=== PATIENT | female | born 1940 | race Caucasian/White ===

== ENCOUNTER 2016-07-27 12:41 | Inpatient (IN) | payer OTHER ==
[~2016-07-27] VITALS: Ht 165.1 cm; Wt 138.8 kg
[2016-07-27] VITALS (17 sets, daily range): BP systolic 97–171; BP diastolic 49–87; PULSE 62–115; RESP 14–18; TEMP 97.2–98.2; O2SAT 97–100
[~2016-07-27 12:41] MED LIST: ROCURONIUM BROMIDE 10 MG/ML (ZEMURON) IV ONE
--- NOTE | 2016-07-27 12:45 | NUR ---
PT. PLACED IN ROOM 4, IN GOWN SIDERAILS UP, BED DOWN, REPORT RECEIVED FROM ART RN
--- NOTE | 2016-07-27 12:50 | NUR ---
DR. FRITZ AT BEDSIDE EXAMINING THE PT
--- NOTE | 2016-07-27 12:50 | NUR ---
PT. TO ER AAOx4 VIA EMS C/O INCREASED WEAKNESS TO HER LOWER EXTREMITIES AND SOB SINCE THIS MORNING, PER DAUGHTER THE CYCLE OF GETTING SOB HAS WORSEN OVER PAST WEEK, STATES THAT SHE SAW HER PRIMARY LAST WEEK, SYMPTOMS WORSEN THIS MORNING
--- NOTE | 2016-07-27 13:10 | NUR ---
medication reconciliation completed
[2016-07-27 14:06] LABS: ABG TOTAL HEMOGLOBIN 11.3 G/dL (12.0-18.0); BLOOD GAS BASE EXCESS 17.3 mmol/L (-3.0-3.0); BLOOD GAS COHb% 1.3 % (0.5-1.5); BLOOD GAS PH 7.171 (7.350-7.450); BLOOD O2Hb% 94.9 % (94.0-97.0)
[2016-07-27 14:07] LABS: BLOOD GAS HHB 3.4 % (0.0-6.0)
[2016-07-27] MEDS ORDERED: ETOMIDATE 20 MG/ 10 ML VIAL (AMIDATE) IVP ONE (14:15)
[2016-07-27] MEDS ORDERED: ROCURONIUM BROMIDE 10 MG/ML (ZEMURON) IV ONE (14:15)
[2016-07-27 14:20] LABS: BASOPHILS # (AUTO) 0.3 K/uL (0.0-0.2); BASOPHILS % (AUTO) 2.5 % (0.0-2.0); EOSINOPHILS # (AUTO) 0.2 K/uL (0.0-0.4); EOSINOPHILS % (AUTO) 1.3 % (0.0-4.0); LYMPHOCYTES # (AUTO) 1.4 K/uL (1.0-5.5); MEAN CORPUSCULAR HEMOGLOBIN 26 pg (27-31); MEAN CORPUSCULAR HGB CONC 30 % (32-36); MEAN CORPUSCULAR VOLUME 88 fL (79.0-98.0); MONOCYTES # (AUTO) 0.7 K/uL (0.0-1.0); MONOCYTES % (AUTO) 5.3 % (1.7-9.3); NEUTROPHILS # (AUTO) 10.9 K/uL (1.8-7.7); NEUTROPHILS % (AUTO) 80.9 % (40.0-70.0); PLATELET COUNT (AUTO) 190 K/uL (130-430); RED BLOOD CELL COUNT(AUTO) 3.77 MIL/uL (4.2-6.2); RED CELL DISTRIBUTION WIDTH 17.5 % (9.0-15.0); WHITE BLOOD COUNT (AUTO) 13.5 K/uL (4.8-10.8)
[2016-07-27] MEDS ORDERED: FURO40TA5 PO (14:24)
[2016-07-27] MEDS ORDERED: PRO20 PO (14:24)
[2016-07-27] MEDS ORDERED: ATOR40TA68 PO (14:24)
[2016-07-27] MEDS ORDERED: DIPH30CR5 TP (14:24)
[2016-07-27] MEDS ORDERED: TRAM50TA92 PO (14:24)
[2016-07-27 14:31] LABS: CALCIUM 9.3 mg/dL (8.4-11.0); CHLORIDE 96 mmol/L (98-107); CREATININE 0.77 mg/dL (0.55-1.30); GLUCOSE 178 mg/dL (70-99); POTASSIUM 4.5 mmol/L (3.5-5.1); SODIUM SERUM 140 mmol/L (136-145); UREA NITROGEN, BLOOD 20 mg/dL (8-21)
--- NOTE | 2016-07-27 14:33 | NUR ---
pt. SpO2 @ 85 %, Dr. Ayers at bedside to intubate pt.
--- NOTE | 2016-07-27 14:34 | NUR ---
Patient not known to be of DNR status. Patient medicated with 20 mg of Etomidate and 30 mg of rocuronium for sedation prior to placement of ET tube. Respiratory therapy at bedside prior to placement. Size 17.5 ET tube placed by dr. Ayers. Cuff inflated with 10 cc air. Auscultation of breath sounds over bilateral chest wall. ET tube secured by RT. O2 sats 98% pulse ox. PCXR ordered to check tube placement.
[2016-07-27 14:36] LABS: ALANINE AMINOTRANSFERASE 16 U/L (12-78); ASPARTATE AMINOTRANSFERASE 10 U/L (10-37); TOTAL BILIRUBIN 0.3 mg/dL (0.0-1.0); TOTAL PROTEIN, SERUM 7.8 g/dL (6.4-8.3)
[2016-07-27 14:56] LABS: ANION GAP < 3 (5-15)
[2016-07-27] MEDS ORDERED: PROPOFOL DRIP 100 ML IV ONE (15:00)
--- NOTE | 2016-07-27 15:00 | NUR ---
# 16 FR Ricardo catheter with use of sterile technique. Immediate return of 100 cc yellow urine noted. Bedside drainage bag placed below level of bladder. Urine sample collected and sent to lab. Pt tolerated procedure well.
--- NOTE | 2016-07-27 15:05 | NUR ---
NG tube placed to left nare. Placement checked by auscultation of instilled air into stomach and aspiration of gastric contents. Tubing taped in place to prevent dislodging. Patient tolerated well
--- NOTE | 2016-07-27 15:20 | NUR ---
Patient will be admitted to care of Dr. Mena. Admitted to ICU unit. Will go to room 7. Belongings list completed. Summary report printed. Report given to ashley LUO.
--- NOTE | 2016-07-27 15:30 | NUR ---
ADMISSION NOTES. PT RECEIVED IN ROOM 7, ORALLY INTUBATED, JUDY SCALE 4, ON DIPRIVAN DRIP AT 4 MCG/KG/MIN INTO RT FOREARM, OBESE, TRANSFERRED FROM [facility] TO BED BY 5 NURSING STAFF, ORAL CARE DONE, MODERATE BLOODY SECRETIONS OBTAINED, HOOKED PT TO CARDIAC MONITORING, BLOOD PRESSURE CUFF, PULSE OXIMETRY, ANOTHER IV ACCESS INSERTED INTO RT CHEST/AXILLA, #20 GAUGE CATHETER, SKIN DENUDED UNDER HER BREASTS, INNER THIGHS, PERINEAL AREA, WASHED SKIN WITH WET WIPES, CHG CLOTHS. Z-GUARD APPLIED TO REDDENED SKIN. ABDOMINAL DRAIN TO RIGHT UPPER QUADRANT WITH BROWNISH-YELLOWISH LIQUID DRAINAGE. BRAGA CATHETER INTACT WITH YELLOW URINE IN THE DRAINAGE BAG.
--- NOTE | 2016-07-27 15:45 | NUR ---
IV DRIPS. DIPRIVAN INCREASED TO 45 MCG/KG/MIN, PT GETTING AGITATED.
[2016-07-27 16:15] LABS: BLOOD GAS PH 7.474 (7.350-7.450)
[2016-07-27 16:16] LABS: ABG TOTAL HEMOGLOBIN 10.6 G/dL (12.0-18.0); BLOOD GAS BASE EXCESS 16.3 mmol/L (-3.0-3.0); BLOOD GAS COHb% 1.1 % (0.5-1.5); BLOOD GAS HHB 4.4 % (0.0-6.0); BLOOD O2Hb% 94.3 % (94.0-97.0)
[2016-07-27] MEDS ORDERED: cefTRIAXone 1 GM IVPB PREMIX 50 ML IV ONE (16:30)
[2016-07-27] MEDS ORDERED: traMADol HCL HCL 50 MG TABLET (ULTRAM) PO PRN (17:00)
[2016-07-27] MEDS ORDERED: DEXTROSE 50% JECT 50 ML DISP.SYRIN IVP PRN (17:00)
--- NOTE | 2016-07-27 17:10 | NUR ---
VENT. R.T. TITRATED FIO2 TO 50%, TIDAL VOLUME TO 650.
[2016-07-27] MEDS ORDERED: LACTULOSE 20 GM/30 ML UDC GT ONE (17:15)
[2016-07-27] MEDS ORDERED: MORPHINE 4 MG/ML INJ. SYRINGE IVP PRN (17:15)
[2016-07-27 17:51] LABS: PROTHROMBIN TIME 10.8 SECS (9.5-12.5)
--- NOTE | 2016-07-27 18:00 | NUR ---
. DR GERMAIN CAME IN AND EXAMINED PT WHILE HER DAUGHTER SHANDA STANDING NEXT TO HER BED . QUESTIONS WERE ANSWERED BY .
[2016-07-27] MEDS: LR 1,000 ML IV SCH (18:08)
[2016-07-27] MEDS: PIPERACILLIN/TAZO 4.5GM/DEX-IS 100 ML IV SCH ×2 (18:14→22:22)
[2016-07-27] MEDS: INSULIN REGULAR, HUMAN 100 UNITS/ML, 10 ML VIAL (novoLIN R) SUBCUT PRN (18:25)
--- NOTE | 2016-07-27 18:40 | NUR ---
IV DRIPS. PT REMAINS ON DIPRIVAN DRIP AT 45 MCG/KG/MIN, RAISES HER EYEBROWS WHEN TALKED TO.
[2016-07-27] MEDS: PROPOFOL DRIP 100 ML IV PRN ×3 (18:45→23:42)
[2016-07-27] MEDS ORDERED: IPRATROPIUM/ALBUTEROL SULFATE 3 ML AMPUL.NEB INH SCH (19:00)
--- NOTE | 2016-07-27 19:20 | NUR ---
PM ASSESSMENT: Patient intubated, ETT 7.5, 24cm lipline with vent settings AC 14, TV 650, FiO2 50%, Peep 5. Breathing even and unlabored. SR on the monitor. Afebrile. IV access on the right upper chest near axilla G20 and right forearm G20 patent and intact. No redness or swelling on both IV sites. Patient is on LR running at 80mls/hr as IVF and Diprivan at 45mcg/kg/min. Martinez scale 4. Patient had NGT on right nare clamped. Ricardo cath draining yellow urine. Abdominal drain noted mid abdomen with yellowish drain. No redness noted on that area. Redness/denuded on patient's folds under breasts and inner thigh folds and perineal area noted. HOB elevated at 30 degrees with 2 side rails up and bed in lowest level. Bed brakes locked. Call light within reach. Will continue to monitor.
[2016-07-27] MEDS: IPRATROPIUM/ALBUTEROL SULFATE 3 ML AMPUL.NEB INH SCH (19:37)
--- NOTE | 2016-07-27 19:45 | NUR ---
RT NOTES @194 ETT ADVANCED 1CM PER [address]. NIEVES. ETT RETAPED AND SECURED AT 24 LIP LINE. NO OTHER CHANGES. RN AWARE.
--- NOTE | 2016-07-27 19:50 | NUR ---
TUBE REPLACEMENT: # 16 FR gastric tube placed orally. Placement checked by auscultation of instilled air into stomach and aspiration of gastric contents. Tubing taped in place to prevent dislodging. Patient tolerated procedure well.
[2016-07-27] MEDS: PANTOPRAZOLE SODIUM 40 MG/VIAL (PROTONIX) IVP SCH (20:54)
[2016-07-27] MEDS ORDERED: AZITHROMYCIN 500 MG in NS 250 ML IV SCH (21:00)
[2016-07-27] MEDS: ENOXAPARIN SODIUM 40 MG/0.4 ML SYRINGE SUBCUT SCH (21:01)
[2016-07-28] VITALS (32 sets, daily range): BP systolic 107–184; BP diastolic 39–96; PULSE 67–131; RESP 6–29; TEMP 98.4–99.7; O2SAT 90–99; Ht 165.1 cm; Wt 138.8 kg
[2016-07-28] MEDS: IPRATROPIUM/ALBUTEROL SULFATE 3 ML AMPUL.NEB INH SCH ×4 (01:52→20:08)
--- NOTE | 2016-07-28 02:57 | NUR ---
PT UPDATE: Patient resting quietly. No acute distress noted. Vent settings tolerated well. Suctioned moderate amount of blood-tinged sputum. Will continue to monitor.
[2016-07-28] MEDS: PROPOFOL DRIP 100 ML IV PRN ×4 (03:16→14:21)
--- NOTE | 2016-07-28 04:10 | NUR ---
PT UPDATE: Patient tolerating vent settings well. Vital signs stable. No acute distress or SOB noted. Will continue to monitor.
[2016-07-28] MEDS: PIPERACILLIN/TAZO 4.5GM/DEX-IS 100 ML IV SCH ×3 (05:38→23:08)
[2016-07-28 06:46] LABS: BASOPHILS % (AUTO) 0.3 % (0.0-2.0); EOSINOPHILS # (AUTO) 0.1 K/uL (0.0-0.4); EOSINOPHILS % (AUTO) 0.8 % (0.0-4.0); HEMATOCRIT 28.5 % (36-48); HEMOGLOBIN 8.7 g/dL (12.0-16.0); LYMPHOCYTES # (AUTO) 1.6 K/uL (1.0-5.5); LYMPHOCYTES % (AUTO) 14.4 % (20.5-51.5); MEAN CORPUSCULAR HEMOGLOBIN 26 pg (27-31); MEAN CORPUSCULAR HGB CONC 31 % (32-36); MEAN CORPUSCULAR VOLUME 86 fL (79.0-98.0); MONOCYTES # (AUTO) 0.6 K/uL (0.0-1.0); MONOCYTES % (AUTO) 5.3 % (1.7-9.3); NEUTROPHILS % (AUTO) 79.2 % (40.0-70.0); PLATELET COUNT (AUTO) 186 K/uL (130-430); RED CELL DISTRIBUTION WIDTH 17.6 % (9.0-15.0); WHITE BLOOD COUNT (AUTO) 11.3 K/uL (4.8-10.8)
[2016-07-28 06:51] LABS: ALANINE AMINOTRANSFERASE 13 U/L (12-78); ALBUMIN 2.3 g/dL (3.4-4.8); ANION GAP 2 (5-15); ASPARTATE AMINOTRANSFERASE 10 U/L (10-37); CALCIUM 8.9 mg/dL (8.4-11.0); CHLORIDE 98 mmol/L (98-107); CREATININE 1.02 mg/dL (0.55-1.30); GLUCOSE 123 mg/dL (70-99); POTASSIUM 3.6 mmol/L (3.5-5.1); SODIUM SERUM 140 mmol/L (136-145); TOTAL BILIRUBIN 0.4 mg/dL (0.0-1.0); UREA NITROGEN, BLOOD 21 mg/dL (8-21)
--- NOTE | 2016-07-28 07:15 | NUR ---
[place] of care Received pt lying in bed with trach to vent, with vent setting: AC16, TV 500, fio2 50% Peep 5. No SOB. Obtunded. No sign of pain nor discomfort. Afebrile. Will continue to monitor. Addendum: 07/28/16 at 1334 by Keara Baltazar RN Undo this entry. Charted on wrong patient.
--- NOTE | 2016-07-28 07:30 | NUR ---
REPORT: Report given to PUJA Sarah.
--- NOTE | 2016-07-28 07:35 | NUR ---
INITIAL NOTES RECEIVED PATIENT ON BED WITH EYES CLOSE.BREATHING EVEN AND UNLABORED;INTUBATED ATTACHED TO VENTILATOR MACHINE;TOLERATING SETTINGS WELL.WITH DIPRIVAN DRIP AT 45 MCG/KG/MIN;RESPONDS TO PAINFUL STIMULI ONLY;LOWERED DIPRIVAN DRIP TO 40 MCG/KG/MIN.WITH GT INTACT AND PATENT;NO FEEDING STARTED.SAFETY AND FALL PRECAUTIONS IN PLACE.WILL CONTINUE TO MONITOR
[2016-07-28 07:42] LABS: IRON (SERUM) 23 mcg/dL (37-145); TOTAL IRON BIND. CAPACITY 238 ug/dL (250-450)
[2016-07-28] MEDS: PANTOPRAZOLE SODIUM 40 MG/VIAL (PROTONIX) IVP SCH ×2 (08:56→22:27)
[2016-07-28] MEDS: ATORVASTATIN 20 MG TABLET PO SCH (08:56)
[2016-07-28] MEDS: FLUoxetine HCL 20 MG CAPSULE (PROzac) PO SCH (08:56)
--- NOTE | 2016-07-28 09:24 | NUR ---
Nutrition Update Randall Scale 12 noted. Pt admitted for acute respiratory failure. Diet: Diabetisource AC at 30 ml/hr via GT BMI: 51.1 kg/m2 RD to follow per nutrition care standards.
[2016-07-28] MEDS ORDERED: FUROSEMIDE 20 MG/2 ML VIAL IVP ONE ×2 (09:45→18:15)
--- NOTE | 2016-07-28 11:03 | NUR ---
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 Placed pt on isolation and ordered Bactroban as per protocol.
[2016-07-28] MEDS: LR 1,000 ML IV SCH ×2 (11:19→17:07)
--- NOTE | 2016-07-28 11:40 | NUR ---
RN NOTES RESP THERAPIST AT BEDSIDE FOR VENT CHANGES. DIPRIVAN DRIP TITRATED DOWN, PATIENT WILL BE ON SIMV 8 WHEN MORE AWAKE.
[2016-07-28] MEDS: MUPIROCIN 2% TOPICAL OINTMENT 22 GM TP SCH ×2 (12:38→23:07)
--- NOTE | 2016-07-28 13:35 | NUR ---
PUJA NOTES PATIENT MORE AWAKE AT THIS TIME, DIPRIVAN AT 10 MCG. PATIENT PLACED ON SIMV 8, WILL CONTINUE TO MONITOR. Addendum: 07/28/16 at 1539 by Keara Baltazar RN Charge Nurse Radha RN titrated Diprivan from 11:30 until 15:36.
--- NOTE | 2016-07-28 14:00 | NUR ---
RN NOTES PATIENT IS MORE AWAKE, ON SIMV 8 WITH GOOD SPO2. SOFT WRIST RESTRAINTS APPLIED FOR SAFETY.
--- NOTE | 2016-07-28 15:26 | NUR ---
Vent on SIMV Still on SIMV 8, PS 10, peep 5, fio2 50%. Tolerating well with anxiety. Calm environment provided. Education given. Diprivan was increased by 5. Daughter at bedside. Educated re: plan of care and isolation. Will continue to monitor.
--- NOTE | 2016-07-28 17:00 | NUR ---
NOTES IV SALINE LOCK TO LEFT ANTECUBITAL REMOVED;NO SIGNS AND SYMPTOMS OF INFILTRATION;PRESSURE DRESSING APPLIED
--- NOTE | 2016-07-28 17:45 | NUR ---
Dr. Trina Mena is here and made aware that night warehouse manager nurse said that pt had 3x episode of afib on their shift. Boris, pvc monitor confirmed he saw some irregularities at about [address] Mena the strip and said it was junctional and no new order for that. Asked MD for flush order for the OGT feeding. Updated MD re: pt's condition. New orders ordered by .
[2016-07-28] MEDS: INSULIN REGULAR, HUMAN 100 UNITS/ML, 10 ML VIAL (novoLIN R) SUBCUT PRN ×2 (17:52→23:10)
--- NOTE | 2016-07-28 18:00 | NUR ---
NOTES DR. GERMAIN CAME AND EXAMINED THE PATIENT;WITH ORDERS AND CARRIED OUT
[2016-07-28 18:10] LABS: BLOOD GAS BASE EXCESS 16.7 mmol/L (-3.0-3.0); BLOOD GAS PH 7.591 (7.350-7.450)
[2016-07-28 18:11] LABS: ABG TOTAL HEMOGLOBIN 9.8 G/dL (12.0-18.0); BLOOD GAS COHb% 0.7 % (0.5-1.5); BLOOD GAS HHB 3.5 % (0.0-6.0); BLOOD O2Hb% 95.4 % (94.0-97.0)
[2016-07-28] MEDS ORDERED: EPOETIN ALFA 3,000 UNITS/ML VIAL IVP ONE (18:15)
--- NOTE | 2016-07-28 18:29 | NUR ---
Called Dr. Garcia for consult at 1825. Dr. Lara is oncall. Nurse is aware.
--- NOTE | 2016-07-28 18:47 | NUR ---
Dr. Maria Dolores ANTHONY called back returning our phone call for a consult and made aware that Dr. 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
--- NOTE | 2016-07-28 19:00 | NUR ---
CLOSING NOTES PATIENT ON BED ASLEEP.BREATHING EVEN AND UNLABORED.NO ACUTE DISTRESS.IVF INFUSING WELL;TOLERATING WELL.RIGHT UPPER ARM PICC LINE INTACT AND PATENT;NO SIGNS AND SYMPTOMS OF INFILTRATION.SAFETY AND FALL PRECAUTIONS IN PLACE.KEPT ON CONTACT ISOLATION PRECAUTION.WILL ENDORSE TO NEXT SHIFT ACCORDINGLY Addendum: 07/28/16 at 1912 by Amy Bran RN BRAGA CATHETER INTACT AND PATENT DRAINING MIKE COLORED URINE.
--- NOTE | 2016-07-28 19:40 | NUR ---
PM SHIFT ASSESSMENT, RECEIVED REPORT FROM AM SHIFT, WENT IN TO ROOM TO MAKE BEDSIDE ROUNDS.PT ON THE VENT SIMV 8 ,VT 650,FIO2 50% ,PEEP 5, PS 10. ON DIPRIVAN DRIP 15MCG/KG/MIN. PT AWAKE. FOLLOWING COMMANDS,AFTER BEDSIDE ROUND CAME BACK TO STATION , HEARD VENT ALARMING. WENT BACK TO ROOM FOUND PT EXTUBATED SELF.ALSO PULLED OGT OUT. TURNED DIPRIVAN DRIP OFF.RT PRESENT, PLACED PT ON O2 50% VENTI MASK.PT HAVING EXP AUDIBLE WHEEZES. RT GIVING BREATHING TREATMENT.
--- NOTE | 2016-07-28 19:53 | NUR ---
PACKING HOUSE LABORER FOR CALLED . HE CAALED BACK @1954. INFORMED HIM PT CONDITION AND PT HAVING AUDIBLE WHEEZES. ORDERS RECEIVED TO GIVE RACEPINEPHRINE BREATHING TREATMENT X 1. PT IS WHEEZING RT PLACED PT ON COOL AEROSOL 50%. BREATHING TREATMENT GIVEN HR 137 .PT WHEEZING. ABG WILL BE DONE SOON TREATMENT IS DONE.
[2016-07-28] MEDS ORDERED: RACEPINEPHRINE HCL 0.5 ML VIAL.NEB INH ONE ×2 (20:00→20:08)
[2016-07-28] MEDS: VANCOMYCIN HCL 1,000 MG in NS 250 ML IV SCH (20:45)
[2016-07-28] MEDS: SOD FERRIC GLUC COMPLEX/SUC 125 MG in NS 100 ML IV SCH (20:46)
[2016-07-28] MEDS: MULTIVITAMINS,THERAPEUTIC 5 ML UDC GT SCH (21:00)
[2016-07-28 21:03] LABS: ABG TOTAL HEMOGLOBIN 11.3 G/dL (12.0-18.0); BLOOD GAS BASE EXCESS 10.3 mmol/L (-3.0-3.0); BLOOD O2Hb% 84.7 % (94.0-97.0)
[2016-07-28 21:04] LABS: BLOOD GAS COHb% 0.3 % (0.5-1.5); BLOOD GAS HHB 14.8 % (0.0-6.0)
--- NOTE | 2016-07-28 21:08 | NUR ---
ABG RESULTS CALLED TO , ORDERS RECEIVED TO INTUBATE PT. ER MD NOTIFIED . RT AT BED SIDE. MED WITH ETOMIDATE 20 MG, AND SUCCINYLCHOLINE 100 MG IVP .INTUBATED WITH 7.5 ETT WITH ONE ATTEMPT.LIP LINE 23CM AT 2122 BY . PCXR ORDERED. # 16 OGT INSERTED HAVING DIFFICULTY INSERTING VIA NASALLY. PCXR DONE. PER ETT POSITION GOOD. OGT NEED REPOSITIONING. OGT REMOVED AND REINSERTED. PLACEMENT VERIFIED BY AUSCULTATION AND ASPIRATION.
[2016-07-28] MEDS: ENOXAPARIN SODIUM 40 MG/0.4 ML SYRINGE SUBCUT SCH (22:28)
[2016-07-28] MEDS: LACTOBACILLUS RHAMNOSUS GG 1 CAP CAPSULE PO SCH (22:28)
--- NOTE | 2016-07-28 22:50 | NUR ---
PT WAKING UP AND REACHING FOR THE ETT, DIPRIVAN DRIP RESTARTED ORDERED PREVIOUSLY @15 MCG/KG/MIN.
--- NOTE | 2016-07-28 23:00 | NUR ---
RESTRAINTS REAPPLIED PT HAD EPISODE OF SELF EXTUBATION.
[2016-07-29] VITALS (33 sets, daily range): BP systolic 102–147; BP diastolic 44–83; PULSE 77–95; RESP 11–25; TEMP 98.6–99.6; O2SAT 92–100
[2016-07-29] MEDS: LR 1,000 ML IV SCH ×2 (01:08→22:51)
[2016-07-29] MEDS: PROPOFOL DRIP 100 ML IV PRN ×4 (01:10→18:03)
[2016-07-29] MEDS: IPRATROPIUM/ALBUTEROL SULFATE 3 ML AMPUL.NEB INH SCH ×4 (01:56→21:10)
--- NOTE | 2016-07-29 06:00 | NUR ---
RESTING WELL, DIPRIVAN DRIP @ 20 MCG/KG/MIN SINCE 2400. YOUSIF SCALE 4.TOLERATING FEEDING WELL. VSS.NO DISTRESS NOTED.
[2016-07-29] MEDS: PIPERACILLIN/TAZO 4.5GM/DEX-IS 100 ML IV SCH ×3 (06:02→21:27)
[2016-07-29] MEDS: INSULIN REGULAR, HUMAN 100 UNITS/ML, 10 ML VIAL (novoLIN R) SUBCUT PRN ×3 (06:12→22:26)
[2016-07-29 07:13] LABS: ANION GAP 6 (5-15); CALCIUM 8.6 mg/dL (8.4-11.0); CHLORIDE 98 mmol/L (98-107); GLUCOSE 176 mg/dL (70-99); SODIUM SERUM 140 mmol/L (136-145); UREA NITROGEN, BLOOD 25 mg/dL (8-21)
[2016-07-29 07:15] LABS: BASOPHILS % (AUTO) 0.3 % (0.0-2.0); EOSINOPHILS # (AUTO) 0.1 K/uL (0.0-0.4); HEMATOCRIT 27.7 % (36-48); HEMOGLOBIN 8.5 g/dL (12.0-16.0); LYMPHOCYTES # (AUTO) 1.3 K/uL (1.0-5.5); LYMPHOCYTES % (AUTO) 11.8 % (20.5-51.5); MEAN CORPUSCULAR HEMOGLOBIN 26 pg (27-31); MEAN CORPUSCULAR HGB CONC 31 % (32-36); MEAN CORPUSCULAR VOLUME 85 fL (79.0-98.0); MONOCYTES # (AUTO) 0.6 K/uL (0.0-1.0); MONOCYTES % (AUTO) 5.3 % (1.7-9.3); NEUTROPHILS # (AUTO) 9.3 K/uL (1.8-7.7); NEUTROPHILS % (AUTO) 81.6 % (40.0-70.0); PLATELET COUNT (AUTO) 188 K/uL (130-430); RED BLOOD CELL COUNT(AUTO) 3.27 MIL/uL (4.2-6.2); RED CELL DISTRIBUTION WIDTH 18.3 % (9.0-15.0); WHITE BLOOD COUNT (AUTO) 11.3 K/uL (4.8-10.8)
--- NOTE | 2016-07-29 07:15 | NUR ---
[place] of care Pt resting in bed,on Diprivan 20mcg/kg/min. Martinez 4. Bilateral restraints in place. Will continue to monitor.
[2016-07-29 07:42] LABS: POTASSIUM 2.9 mmol/L (3.5-5.1)
[2016-07-29 08:07] LABS: FOLATE (FOLIC ACID) 10.1 ng/mL (>3.0)
[2016-07-29] MEDS: MULTIVITAMINS,THERAPEUTIC 5 ML UDC GT SCH ×2 (08:10→21:22)
[2016-07-29] MEDS: PANTOPRAZOLE SODIUM 40 MG/VIAL (PROTONIX) IVP SCH ×2 (08:10→21:24)
[2016-07-29] MEDS: ATORVASTATIN 20 MG TABLET PO SCH (08:10)
[2016-07-29] MEDS: FLUoxetine HCL 20 MG CAPSULE (PROzac) PO SCH (08:10)
[2016-07-29] MEDS: LACTOBACILLUS RHAMNOSUS GG 1 CAP CAPSULE PO SCH ×2 (08:10→21:25)
[2016-07-29] MEDS: VANCOMYCIN HCL 1,000 MG in NS 250 ML IV SCH ×2 (08:12→21:24)
[2016-07-29 08:13] LABS: ABG TOTAL HEMOGLOBIN 9.6 G/dL (12.0-18.0); BLOOD GAS BASE EXCESS 13.4 mmol/L (-3.0-3.0); BLOOD GAS COHb% 0.6 % (0.5-1.5); BLOOD GAS HHB 3.4 % (0.0-6.0); BLOOD GAS PH 7.563 (7.350-7.450); BLOOD O2Hb% 95.9 % (94.0-97.0)
[2016-07-29] MEDS: MUPIROCIN 2% TOPICAL OINTMENT 22 GM TP SCH ×2 (08:14→21:27)
--- NOTE | 2016-07-29 08:30 | NUR ---
Dr. Kamran Andrew is here. made aware of current ABG: Ph 7.563, Hco3 36.8. Also made aware of potassium 2.9. MD also made aware how pt tolerated SIMV yesterday and that pt extubated himself last night. And that pt was placed last night on ventimask. Showed MD last night's ABGs. New orders are being entered by .
[2016-07-29] MEDS ORDERED: POTASSIUM CHLORIDE 20 MEQ/PKT PACKET PO ONE (09:00)
--- NOTE | 2016-07-29 09:50 | NUR ---
RT NOTES Vent settings to SIMV [address] Andrew's order. Pt's R.R 10, end tidal CO2 50 mmHg, RN made aware.
--- NOTE | 2016-07-29 10:00 | NUR ---
Pt on SIMV No SOB. No restlessness noted. Will continue to monitor.
[2016-07-29 10:18] LABS: RETICULOCYTE COUNT 2.3 % (0.5-1.5)
[2016-07-29 10:40] LABS: BLOOD GAS PH 7.411 (7.350-7.450)
[2016-07-29 10:42] LABS: BLOOD GAS BASE EXCESS 9.5 mmol/L (-3.0-3.0); BLOOD GAS COHb% 0.9 % (0.5-1.5); BLOOD GAS HHB 1.2 % (0.0-6.0); BLOOD O2Hb% 97.6 % (94.0-97.0)
[2016-07-29 12:36] LABS: ABG TOTAL HEMOGLOBIN 9.6 G/dL (12.0-18.0); BLOOD GAS BASE EXCESS 10.5 mmol/L (-3.0-3.0); BLOOD GAS PH 7.487 (7.350-7.450); BLOOD O2Hb% 95.8 % (94.0-97.0)
[2016-07-29 12:37] LABS: BLOOD GAS COHb% 1.2 % (0.5-1.5); BLOOD GAS HHB 2.5 % (0.0-6.0)
--- NOTE | 2016-07-29 12:40 | NUR ---
Dr. Andrew paged RE ABG results.
--- NOTE | 2016-07-29 13:40 | NUR ---
RT NOTES FIO2 to 40% per titration order per Dr Andrew. No adverse reactions noted. Will monitor pt.
[2016-07-29] MEDS ORDERED: SUCCINYLCHOLINE CHLORIDE 20 MG/ML(QUELICIN) IVP ONE (17:05)
[2016-07-29] MEDS ORDERED: ETOMIDATE 20 MG/ 10 ML VIAL (AMIDATE) IVP ONE (17:05)
--- NOTE | 2016-07-29 19:15 | NUR ---
Closing notes Sarah stayed on 20mcg/kg/min through the shift. Juan 4. CHG bath given this shift. Still on SIMV 10, PS 10, Peep 5, TV 650, fio2: 50%. No restless, no SOB. Report given to PUJA Peterson and endorsed all care.
--- NOTE | 2016-07-29 20:00 | NUR ---
ORALLY INTUBATED. SUCTIONED WITH MOD AMOUNT OF THIN RED-TINGED MUCUS OBTAINED. ORAL CARE RENDERED. OGT WITH DIABETISOURCE AT 50CC/HR. RESIDUAL CHECK 0. RIGHT UPPER ABDOMEN OSTOMY WITH YELLOWISH DRAINAGE NOTED. ROMMEL SOFT WRIST RESTRAINTS ON FOR SAFETY. ON DIPRIVAN DRIP AT 20 MCG/KG/MIN. BLAKE PICC LINE DRSG D/I. GENERALIZED EDEMA NOTED. BRAGA CATH PATENT DRAINING CLOUDY YELLOW URINE TO GRAVITY. SR. CONTACT ISOLATION OBSERVED.
--- NOTE | 2016-07-29 21:00 | NUR ---
DR MARTELL HERE EARLIER, NEW ORDERS GIVEN TO BE IMPLEMENTED. TYLENOL 650MG OGT GIVEN FOR TEMP 99.6 TEMPORAL ARTERY SCAN. PROSOURCE GIVEN OGT.
[2016-07-29] MEDS: SOD FERRIC GLUC COMPLEX/SUC 125 MG in NS 100 ML IV SCH (21:24)
[2016-07-29] MEDS: POTASSIUM CHLORIDE 20 MEQ/PKT PACKET PO SCH (21:25)
[2016-07-29] MEDS: ENOXAPARIN SODIUM 40 MG/0.4 ML SYRINGE SUBCUT SCH (21:25)
[2016-07-29] MEDS: ACETAMINOPHEN 650 MG/20.3 ML UDC GT PRN (21:27)
--- NOTE | 2016-07-29 22:00 | NUR ---
EASILY AROUSABLE. OBEYS SIMPLE COMMANDS. ABLE TO FOCUS. HS CARE. TURNED. OGT FLUSHED WITH 100CC H20. ACCU-CHEK 203, 4 UNITS REG INSULIN SQ GIVEN. UO GOOD.
[2016-07-30] VITALS (29 sets, daily range): BP systolic 111–159; BP diastolic 54–84; PULSE 68–100; RESP 10–38; TEMP 97.8–100.2; O2SAT 90–100
--- NOTE | 2016-07-30 | NUR ---
SUCTIONED WITH SAME RESULTS. TURNED. ORAL CARE GIVEN PULSES PALPABLE. UO GOOD.
[2016-07-30] MEDS: PROPOFOL DRIP 100 ML IV PRN ×2 (00:35→06:10)
--- NOTE | 2016-07-30 01:00 | NUR ---
TELEPHONE CONSENT FOR BLOOD TRANSFUSION OBTAINED EARLIER FROM DAUGHTER PIPE GRIGSBY. 1 UNIT PRBC #[phone] RACHEL. NO ADVERSE REACTIONS.
--- NOTE | 2016-07-30 02:00 | NUR ---
SUCTIONED. TURNED. BLOOD ON GOING. CIRCULATION CHECK DONE.
[2016-07-30] MEDS: IPRATROPIUM/ALBUTEROL SULFATE 3 ML AMPUL.NEB INH SCH ×4 (02:59→19:50)
--- NOTE | 2016-07-30 04:00 | NUR ---
PRBC ALL INFUSED. SUCTIONED. TURNED. ORAL CARE GIVEN. RESIDUAL CHECK O. CIRCULATION CHECK DONE.
--- NOTE | 2016-07-30 06:00 | NUR ---
1 COPIOUS AMOUNT OF WATERY STOOL DEFECATED. ARMOND-CARE DONE. CHG BATH GIVEN. BRAGA CARE. BACK CARE. SKIN CARE. Z-GUARD APPLIED TO REDDENED AREAS IN FOLDS. COMPLETE LINEN CHANGE. DOES NOT ASSIST WITH TURNING. NESTOR PROC WELL. OGT FLUSHED WITH 100CC H2O.
[2016-07-30] MEDS: PIPERACILLIN/TAZO 4.5GM/DEX-IS 100 ML IV SCH ×3 (06:06→23:00)
[2016-07-30 06:53] LABS: BASOPHILS # (AUTO) 0.2 K/uL (0.0-0.2); EOSINOPHILS # (AUTO) 0.3 K/uL (0.0-0.4); EOSINOPHILS % (AUTO) 1.7 % (0.0-4.0); HEMATOCRIT 30.3 % (36-48); HEMOGLOBIN 9.4 g/dL (12.0-16.0); LYMPHOCYTES # (AUTO) 0.9 K/uL (1.0-5.5); LYMPHOCYTES % (AUTO) 5.7 % (20.5-51.5); MEAN CORPUSCULAR HEMOGLOBIN 26 pg (27-31); MEAN CORPUSCULAR HGB CONC 31 % (32-36); MEAN CORPUSCULAR VOLUME 85 fL (79.0-98.0); MONOCYTES # (AUTO) 0.7 K/uL (0.0-1.0); MONOCYTES % (AUTO) 4.2 % (1.7-9.3); NEUTROPHILS # (AUTO) 14.3 K/uL (1.8-7.7); NEUTROPHILS % (AUTO) 87.4 % (40.0-70.0); PLATELET COUNT (AUTO) 202 K/uL (130-430); RED BLOOD CELL COUNT(AUTO) 3.55 MIL/uL (4.2-6.2); RED CELL DISTRIBUTION WIDTH 17.7 % (9.0-15.0); WHITE BLOOD COUNT (AUTO) 16.4 K/uL (4.8-10.8)
--- NOTE | 2016-07-30 07:00 | NUR ---
ACCU-CHEK 149, NO INSULIN COV DUE PER SLIDING SCALE. REMAINS IN GUARDED CONDITION.
[2016-07-30 07:24] LABS: ANION GAP 4 (5-15); CALCIUM 8.3 mg/dL (8.4-11.0); CHLORIDE 99 mmol/L (98-107); CREATININE 1.15 mg/dL (0.55-1.30); GLUCOSE 181 mg/dL (70-99); POTASSIUM 3.3 mmol/L (3.5-5.1); SODIUM SERUM 139 mmol/L (136-145); UREA NITROGEN, BLOOD 25 mg/dL (8-21)
[2016-07-30 07:27] LABS: BLOOD GAS PH 7.416 (7.350-7.450)
[2016-07-30 07:28] LABS: ABG TOTAL HEMOGLOBIN 10.7 G/dL (12.0-18.0); BLOOD GAS COHb% 0.9 % (0.5-1.5); BLOOD GAS HHB 3.5 % (0.0-6.0); BLOOD O2Hb% 95.1 % (94.0-97.0)
--- NOTE | 2016-07-30 08:00 | NUR ---
Received open eyes when name called. pupils reacted to light. Skin folds along breast and belly reddenned noted. Sacral reddenned, Both legs with brownish discoloration. Generalized edema noted. Scope Sinus rythym with occ. PAC's.Lungs sound bilateral fine crackles sound. Oral ETT intact,with ventilator setting SIMV10,TV650,FIO2 40%,PS10,Peep5. O2 sat 98% on present vent setting. Oral gastrostomy tube intact .no residual noted. TF Diabetic source at 50ml/hr continued. IV site ,right upper arm patent,. Ricardo cath intact drained yellow color urine output.Isolation precaution MRSA nares observed
--- NOTE | 2016-07-30 08:00 | NUR ---
Received obtunded. Pupils reacted to light .Skin intact. Generalized edema noted. right hand with bruise discoloration noted.with right arm brace noted.Scope Sinus rythym,no ectopy noted.with Tracheostomy ,Portex 7,with Ventilator with setting AC16,TV500,Wcy751%, Peep 5.O2 sat 94%, this vent setting.Lungs sound diminished left lobe noted. Abdomen distended,fim to touch.Bowel sound heard. Gastrostomy tube inplaced. No residual noted. with TF Fibersource at 50ml/hr. HOB elevated. IV left upper arm PICC line with D5 1/2 NS at 100ml/hr. Ricardo cath inplaced drained jessenia color urine output. Addendum: 07/30/16 at 0822 by Twelve shellacker Incorrect Pt. Data entered in error.
[2016-07-30] MEDS: INSULIN REGULAR, HUMAN 100 UNITS/ML, 10 ML VIAL (novoLIN R) SUBCUT PRN ×3 (08:06→22:32)
[2016-07-30] MEDS: FLUoxetine HCL 20 MG CAPSULE (PROzac) PO SCH (10:08)
[2016-07-30] MEDS: POTASSIUM CHLORIDE 20 MEQ/PKT PACKET PO SCH ×3 (10:09→22:00)
[2016-07-30] MEDS: LACTOBACILLUS RHAMNOSUS GG 1 CAP CAPSULE PO SCH ×2 (10:09→22:00)
[2016-07-30] MEDS: ATORVASTATIN 20 MG TABLET PO SCH (10:09)
[2016-07-30] MEDS: PANTOPRAZOLE SODIUM 40 MG/VIAL (PROTONIX) IVP SCH ×2 (10:09→22:00)
[2016-07-30] MEDS: MULTIVITAMINS,THERAPEUTIC 5 ML UDC GT SCH ×2 (10:10→22:28)
[2016-07-30] MEDS: VANCOMYCIN HCL 1,000 MG in NS 250 ML IV SCH ×2 (10:10→22:00)
[2016-07-30] MEDS: MUPIROCIN 2% TOPICAL OINTMENT 22 GM TP SCH ×2 (10:12→22:00)
--- NOTE | 2016-07-30 11:00 | NUR ---
Dr Andrew came,examined,Vent setting changed to SIMV 4.Propofol titrated down,as order. Taper off as order and give Ativan as needed .
[2016-07-30] MEDS ORDERED: FUROSEMIDE 40 MG/4 ML VIAL IVP ONE (11:45)
--- NOTE | 2016-07-30 12:00 | NUR ---
CXR results seen by Dr Andrew. Need to push in 2 cm of ETT . durability technician informed,and done. Lip line 25cm this time.
[2016-07-30] MEDS: ONDANSETRON HCL 4 MG/2 ML VIAL IVP PRN (13:41)
[2016-07-30] MEDS: LORazepam 2 MG/ML VIAL IVP PRN (13:45)
--- NOTE | 2016-07-30 14:00 | NUR ---
O2 sat 98%. SiMV 4 placed bt RT. Propofol drip OFF as order. Patient awake, Moved arms, Soft restraints on. with good circulation. Ativan 1 mg IVP given as order.
[2016-07-30] MEDS ORDERED: CYANOCOBALAMIN 1000 MCG/ML VIAL IM ONE (15:15)
--- NOTE | 2016-07-30 16:00 | NUR ---
Scope Atrial Fib. HR 100-110/min.O2 sat 90-94%. Placed back to SIMV 10 again by Respiratory therapist. Moshe bustamante .
--- NOTE | 2016-07-30 16:16 | NUR ---
Nutrition F/U Admitting Diagnosis Acute respiratory failure Past Medical History COPD, chronic respiratory failure, HLD, DM, CHF per MD notes Pt also found w/ acute hypercapnic respiratory failure, enterocutaneous fistula, mild protein malnutrition, morbid obesity Pertinent Medications lipitor, protonix IV, propofol, morphine, zofran, SSI, D50%-syringe, piperacillin/tazobactam IV, KCl packet, lasix, ativan, vancomycin/NaCl IV, MVI, ferric Na gluconate complex, culturelle, vancomycin per pharmacy, lovenox propofol infusing at 7.995 mcg/kg/min (6.62 ml/hr and 7.3 kcal/hr); 175 kcal/day Current Diet Order Diabetisource AC at 50 ml/hr, Prosource TID via OGT Height (Feet) 5 feet Height (Inches) 5.00 inches Weight (Pounds) 306 pounds (admission); bedscale (07/30/16): 317 lbs/144 kg (unsure of accuracy) Weight (Calculated Kilograms) 138.618631 kilograms Patient Weight 138.799 kg Body Mass Index 50.92 Stanton/Adjusted Body Weight IBW: 125 lb, 57 kg. 244% of IBW. Adj IBW (obesity): 244 lb, 111 kg Estimated Needs (modified) 6063-5010 kcal/day (11-14 kcal/kg CBW for vent support) Grams of Protein per Day 114-143 gm/day (2-2.5 gm/kg IBW for COPD and vent support) Fluid Intake Goal Per MD for Hx of CHF Pertinent Labs WBC 16.4 H, H/H 9.4 L/30.3 L, K 3.3 L, BUN 25 H, BG 181 H 07/28/16: ALB 2.3 L, iron 23 L, TIBC 238 L, HgbA1c 7.4 H 07/27/16: Lactic acid 2.5 H Other Subjective Data Pt seen resting in bed, +intubated, +sedated, +mechanical ventilator, TF infusing per MD orders. No caregivers present at bedside. Per RN, pt is tolerating TFs with no residuals so far today; reported 1 BM today. Planned procedures: weaning off ventilator, tapering down propofol. Per RN, pt is receiving free water flush 100 cc q6hrs. Per EMR, TF intakes (2/18/17): 400 ml, residuals: 0; abdomen is non-distended w/ active bowel sounds. Randall scale: 12. Per RN notes, L proximal abdomen: denuded, L abdomen: denuded, perineal: blanchable, R abdomen: denuded. I/Os (07/30/16): 1705/1190 (+515 ml); 1 BM recorded today. Per RN notes, R upper abdomen ostomy w/ yellowish drainage noted. Current TF regimen (with propofol at current rate) provides: 1795 kcal/day, 117 gm protein/day, 1379 ml free water/day. This meets: 92-117% estimated energy needs and 103% estimated protein needs per day. Adequate and appropriate. RD left note for MD to sign to confirm free water flush. Recommend RD to adjust nutritional needs and TF regimen (if necessary) if/when pt is weaned off of mechanical ventilator. Pt is not appropriate for nutrition education. Problem, Etiology, Signs/Symptoms Increased nutritional requirements related to acute state and vent support as evidenced by elevated WBC and lactic acid lab draws, and estimated nutritional requirements. Expected Outcomes or Goals - Monitor tolerance to EN w/ goal of pt meeting at least 50% of estimated nutritional needs, labs trending WNL, normal GI function, and skin integrity/wt maintenance Dietitian Recommendations * Recommend Diabetisource AC at 50 ml/hr, Prosource TID, Free Water Flush: 100 ml q6hr via OGT Follow Up High Risk: F/U in 2-3days
--- NOTE | 2016-07-30 17:30 | NUR ---
Dr Andrew called back. Above condition informed. Okay SIMV10.Repeat ABG in AM.Ativan IV PRN. IF Ativan didnt help ,may start Sarah hernandez as order and carried out.
[2016-07-30] MEDS ORDERED: PROPOFOL DRIP 100 ML IV PRN (18:15)
--- NOTE | 2016-07-30 18:30 | NUR ---
Accucheck 200,Regular insulin 2 units SQ coverage given as order
--- NOTE | 2016-07-30 18:45 | NUR ---
awake alert nodded head yes/no for an answerScope Atrial Fib. HR 80/min. Lungs sound irvin crckles sound. ETT intact with SIMV 10.m TV650,FIO2 40%. Peep 5,PS10, OGT intact No residual Noted. TF diabetic source at 50ml/hr.HOB elevate. IV LR at 50ml/hr right upper arm PICC line. Ricardo cath intact. Isolation precaution observed..
--- NOTE | 2016-07-30 19:00 | NUR ---
Care endorsed to Kanwal LUO
--- NOTE | 2016-07-30 20:00 | NUR ---
Assumed care of pt this pm/fast food shift lead;Assess as charted;pt alert,cooperative;no signs/symptoms of new distress issues
[2016-07-30] MEDS: ENOXAPARIN SODIUM 40 MG/0.4 ML SYRINGE SUBCUT SCH (22:00)
--- NOTE | 2016-07-30 22:00 | NUR ---
Pt resting quietly,no distress evident;pt able to nod yes/no appropriately.
[2016-07-31] VITALS (34 sets, daily range): BP systolic 97–137; BP diastolic 41–88; PULSE 65–87; RESP 10–31; TEMP 97.1–99.4; O2SAT 90–99
[2016-07-31] MEDS: LORazepam 2 MG/ML VIAL IVP PRN ×3 (00:30→17:34)
[2016-07-31] MEDS: LR 1,000 ML IV SCH (01:12)
[2016-07-31] MEDS: IPRATROPIUM/ALBUTEROL SULFATE 3 ML AMPUL.NEB INH SCH ×2 (01:27→20:07)
--- NOTE | 2016-07-31 02:00 | NUR ---
Pt resting quietly,sleeping well,no signs/symptoms of new distress observed
--- NOTE | 2016-07-31 06:00 | NUR ---
Pt care rounds conducted every 30-60 min throughout shift;pt rested quietly,slept well most of night;sergo vent well despite being off sedative drip;Ativan given only one time;no signs/symptoms of new/acute distress observed
[2016-07-31] MEDS: PIPERACILLIN/TAZO 4.5GM/DEX-IS 100 ML IV SCH ×3 (06:50→21:38)
[2016-07-31] MEDS: INSULIN REGULAR, HUMAN 100 UNITS/ML, 10 ML VIAL (novoLIN R) SUBCUT PRN ×4 (06:52→21:43)
[2016-07-31 07:01] LABS: BASOPHILS % (AUTO) 0.3 % (0.0-2.0); EOSINOPHILS # (AUTO) 0.2 K/uL (0.0-0.4); EOSINOPHILS % (AUTO) 1.8 % (0.0-4.0); HEMATOCRIT 29.1 % (36-48); HEMOGLOBIN 8.8 g/dL (12.0-16.0); LYMPHOCYTES # (AUTO) 0.9 K/uL (1.0-5.5); MEAN CORPUSCULAR HEMOGLOBIN 26 pg (27-31); MEAN CORPUSCULAR HGB CONC 30 % (32-36); MEAN CORPUSCULAR VOLUME 86 fL (79.0-98.0); MONOCYTES # (AUTO) 0.5 K/uL (0.0-1.0); MONOCYTES % (AUTO) 4.8 % (1.7-9.3); NEUTROPHILS # (AUTO) 9.4 K/uL (1.8-7.7); NEUTROPHILS % (AUTO) 85.1 % (40.0-70.0); PLATELET COUNT (AUTO) 191 K/uL (130-430)
--- NOTE | 2016-07-31 07:15 | NUR ---
Report given & care surrendered to day shift RN.
[2016-07-31 07:40] LABS: RED CELL DISTRIBUTION WIDTH 17.7 % (9.0-15.0)
[2016-07-31 08:27] LABS: ANION GAP 4 (5-15); CALCIUM 7.7 mg/dL (8.4-11.0); CHLORIDE 103 mmol/L (98-107); CREATININE 0.97 mg/dL (0.55-1.30); GLUCOSE 170 mg/dL (70-99); POTASSIUM 3.7 mmol/L (3.5-5.1); SODIUM SERUM 141 mmol/L (136-145); UREA NITROGEN, BLOOD 22 mg/dL (8-21)
[2016-07-31] MEDS: MULTIVITAMINS,THERAPEUTIC 5 ML UDC GT SCH ×2 (09:45→21:36)
[2016-07-31] MEDS: FLUoxetine HCL 20 MG CAPSULE (PROzac) PO SCH (09:45)
[2016-07-31] MEDS: PANTOPRAZOLE SODIUM 40 MG/VIAL (PROTONIX) IVP SCH ×2 (09:45→21:37)
[2016-07-31] MEDS: POTASSIUM CHLORIDE 20 MEQ/PKT PACKET PO SCH ×3 (09:46→21:35)
[2016-07-31] MEDS: LACTOBACILLUS RHAMNOSUS GG 1 CAP CAPSULE PO SCH ×2 (09:46→21:41)
[2016-07-31] MEDS: ATORVASTATIN 20 MG TABLET PO SCH (09:46)
[2016-07-31] MEDS ORDERED: VANCOMYCIN HCL 1,250 MG in NS 250 ML IV SCH (10:00)
[2016-07-31] MEDS: FUROSEMIDE 40 MG/4 ML VIAL IVP SCH (10:14)
[2016-07-31] MEDS: CYANOCOBALAMIN 1000 mCg TABLET PO SCH (10:15)
[2016-07-31] MEDS: VANCOMYCIN HCL 1,000 MG in NS 250 ML IV SCH ×2 (10:15→21:35)
[2016-07-31] MEDS: MUPIROCIN 2% TOPICAL OINTMENT 22 GM TP SCH ×2 (10:16→21:37)
[2016-07-31 11:26] LABS: BLOOD GAS PH 7.358 (7.350-7.450)
[2016-07-31 11:27] LABS: ABG TOTAL HEMOGLOBIN 10.3 G/dL (12.0-18.0); BLOOD GAS BASE EXCESS 5.8 mmol/L (-3.0-3.0); BLOOD GAS COHb% 0.6 % (0.5-1.5); BLOOD O2Hb% 95.2 % (94.0-97.0)
--- NOTE | 2016-07-31 11:35 | NUR ---
MD rounds Pt awake. Pt able to follow commands. Pt denies pain, SOB, or discomfort. Dr. Andrew and Dr. Vallejo at the bedside discussing plan of care with Pt and Pt's family. Informed Pt's family to push the call light if Pt needs assistance with anything. Pt's family verbalized understanding. Currently waiting new orders. HOB elevated 45 degree angle, call light within easy reach, bed at lowest position, will continue to monitor. Addendum: 07/31/16 at 1514 by Daniella Valerio RN Data entered in error. Dr. Vallejo was not at bedside. It was only Dr. Andrew at bedside
--- NOTE | 2016-07-31 13:30 | NUR ---
CHG bath, lisandro care, linen change, wound care Pt awake. Pt able to follow commands. CHG bath, lisandro care, wound care, and linen change provided. 4 RN at bedside assisting with care. Pt tolerated care. Informed Pt to push the call light if Pt needs assistance with anything. Pt nodded. HOB elevated 45 degree angle, call light within easy reach, bed at lowest position, will continue to monitor.
--- NOTE | 2016-07-31 14:00 | NUR ---
Flexiseal Pt awake. Pt able to follow simple commands. Pt had a large loose watery stool. Malissa care provided. Z guard applied for skin protection. Pt made aware of flexiseal insertion. Pt nodded for understanding. Pt tolerated flexiseal insertion. Informed Pt to push the call light if Pt needs assistance with anything. Pt nodded. Call light within easy reach, bed at lowest position, HOB elevated 45 degree angle, will continue to monitor.
--- NOTE | 2016-07-31 15:00 | NUR ---
MD rounds Pt awake. Pt tolerating vent settings. Dr Mena at the bedside discussing plan of care. Currently awaiting new orders. Call light within easy reach, bed at lowest position, will continue to monitor.
[2016-07-31] MEDS ORDERED: FUROSEMIDE 20 MG/2 ML VIAL IVP ONE (17:00)
--- NOTE | 2016-07-31 18:45 | NUR ---
Closing noted Pt awake. Watery eyes noted. Pt mouthed that see was anxious. Medication administered as ordered and effective. Informed Pt to push the call light if Pt needs assistance with anything. Pt nodded for understanding. G-Tube feeding and IVF still infusing, call light within easy reach, bed at lowest position, HOB elevated 45 degree angle, will endorse on coming shift to follow up with stool collect.
--- NOTE | 2016-07-31 19:45 | NUR ---
Beginning of PM shift assessment Pt is lying down with eyes closed, but alert and orientated. Opens eyes and hands to commands. Pt is on isolation for MRSA in the nares. Appears calm with no signs of distress. Pt has OG tube, correct placement verified using auscultation, no residual noted. 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 Pt is intubated w ET tube, tolerating vent settings well as evidence by stable vital signs, no s/s of respiratory distress. Suctioned 2x with copious thick white secretions. Upon auscultation anterior upper lobes had rhonchi and posterior bottom lobes had wheezing. Pt is sinus rhythm. BLAKE PICC infusing IVF, site clean/dry/intact, both ports flushed w 5 cc NS blood return noted. No s/s of infiltration or infection. Redness noted under abdominal folds with zguard in place. Ricardo draining dark yellow urine to gravity, drainage bag placed below bladder level. Flexiseal draining watery light brown stool. Clean, dry and patent. Bed in low position, call light within reach, Will continue to monitor.
[2016-07-31] MEDS: ENOXAPARIN SODIUM 40 MG/0.4 ML SYRINGE SUBCUT SCH (21:36)
[2016-07-31] MEDS: SOD FERRIC GLUC COMPLEX/SUC 125 MG in NS 100 ML IV SCH ×3 (21:36)
[2016-07-31] MEDS ORDERED: LACTOBACILLUS RHAMNOSUS GG 1 CAP CAPSULE ONE (21:45)
[2016-08-01] VITALS (33 sets, daily range): BP systolic 115–165; BP diastolic 52–112; PULSE 62–91; RESP 10–30; TEMP 97.5–98.8; O2SAT 91–97
--- NOTE | 2016-08-01 | NUR ---
Anxiety Pt restless in bed, when asked if feeling anxious she nodded yes. Requesting Ativan, will medicate per MD order. Will continue to monitor.
[2016-08-01] MEDS: LORazepam 2 MG/ML VIAL IVP PRN ×3 (00:23→18:02)
[2016-08-01] MEDS: LR 1,000 ML IV SCH ×2 (02:06→11:42)
--- NOTE | 2016-08-01 03:30 | NUR ---
Anxiety Pt restless in bed, when asked if feeling anxious she nodded yes. Requesting Ativan, will medicate per MD order. Will continue to monitor.
[2016-08-01] MEDS: IPRATROPIUM/ALBUTEROL SULFATE 3 ML AMPUL.NEB INH SCH ×3 (05:10→18:57)
[2016-08-01] MEDS: PIPERACILLIN/TAZO 4.5GM/DEX-IS 100 ML IV SCH ×3 (06:23→21:57)
[2016-08-01] MEDS: INSULIN REGULAR, HUMAN 100 UNITS/ML, 10 ML VIAL (novoLIN R) SUBCUT PRN ×4 (06:34→21:58)
[2016-08-01 06:50] LABS: ANION GAP 1 (5-15); CALCIUM 8.1 mg/dL (8.4-11.0); CHLORIDE 102 mmol/L (98-107); CREATININE 1.01 mg/dL (0.55-1.30); GLUCOSE 167 mg/dL (70-99); POTASSIUM 4.1 mmol/L (3.5-5.1); SODIUM SERUM 139 mmol/L (136-145); UREA NITROGEN, BLOOD 21 mg/dL (8-21)
[2016-08-01 06:57] LABS: BASOPHILS % (AUTO) 0.3 % (0.0-2.0); EOSINOPHILS # (AUTO) 0.2 K/uL (0.0-0.4); EOSINOPHILS % (AUTO) 1.9 % (0.0-4.0); HEMATOCRIT 30.3 % (36-48); HEMOGLOBIN 9.3 g/dL (12.0-16.0); LYMPHOCYTES # (AUTO) 1.1 K/uL (1.0-5.5); LYMPHOCYTES % (AUTO) 10.2 % (20.5-51.5); MEAN CORPUSCULAR HEMOGLOBIN 27 pg (27-31); MEAN CORPUSCULAR HGB CONC 31 % (32-36); MEAN CORPUSCULAR VOLUME 87 fL (79.0-98.0); MONOCYTES # (AUTO) 0.6 K/uL (0.0-1.0); MONOCYTES % (AUTO) 5.5 % (1.7-9.3); NEUTROPHILS # (AUTO) 9.3 K/uL (1.8-7.7); NEUTROPHILS % (AUTO) 82.1 % (40.0-70.0); PLATELET COUNT (AUTO) 207 K/uL (130-430); RED BLOOD CELL COUNT(AUTO) 3.47 MIL/uL (4.2-6.2); RED CELL DISTRIBUTION WIDTH 18.3 % (9.0-15.0); WHITE BLOOD COUNT (AUTO) 11.2 K/uL (4.8-10.8)
--- NOTE | 2016-08-01 07:30 | NUR ---
AM Assessment Received Pt awake, alert, orientated x3. Pt able to follow commands and nods heads to signals for needs. Pt tolerating vent settings. Pt denies pain, SOB, or discomfort. Pt breathing via ETT to vent. Vent settings SMIV 4, TV 650, FIO2 40, PEEP 5. Lung sounds auscultated, clear lung sounds noted bilateral upper lobes and diminished lung sounds bilateral lower lobes. Abd auscultated. bowel sounds noted throughout all quadrant. Abd. soft and distended. OG tube noted. OG tube flushed and patent. OG tube placement noted in abd. No residual noted. Diabeticsource currently infusing at 50mL/Hr. Right abd fistula noted. Colostomy bag in placed collecting drainage from the fistula. Yellowish green drainage noted. Double lumen PICC line noted. Both ports flushed at patent. Blood return noted in both ports. LR IVF currently infusing. Edema noted bilateral hands +3 pitting and bilateral lower extremity non pitting edema noted. Bilateral radial pulse and pedal pulse noted. Skin is warm to the touch, cap refills less than 3 secs, Pt able to wiggle fingers and toes. Bilateral wrist restraints in placed for safety measures. Wrist restraints taken off for 10 mins. Flexiseal noted. Soft loose brown stool noted. Ricardo cath noted. Ricardo cath patent draining clear yellow urine. Ricardo cath secure device in placed. 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 Assessment done, plan of care discussed with Pt. Informed Pt to push the call light if Pt needs assist with anything. Pt nodded. Call light within easy reach, bed at lowest position, HOB elevated 45 degree angle, bed brakes locked, will continue to monitor.
[2016-08-01] MEDS: POTASSIUM CHLORIDE 20 MEQ/PKT PACKET PO SCH ×3 (08:52→20:43)
[2016-08-01] MEDS: CYANOCOBALAMIN 1000 mCg TABLET PO SCH (08:52)
[2016-08-01] MEDS: ATORVASTATIN 20 MG TABLET PO SCH (08:52)
[2016-08-01] MEDS: FLUoxetine HCL 20 MG CAPSULE (PROzac) PO SCH (08:52)
[2016-08-01] MEDS: MULTIVITAMINS,THERAPEUTIC 5 ML UDC GT SCH ×2 (08:52→20:50)
[2016-08-01] MEDS: MUPIROCIN 2% TOPICAL OINTMENT 22 GM TP SCH ×2 (08:53→20:42)
[2016-08-01] MEDS: FUROSEMIDE 40 MG/4 ML VIAL IVP SCH (08:53)
[2016-08-01] MEDS: PANTOPRAZOLE SODIUM 40 MG/VIAL (PROTONIX) IVP SCH ×2 (08:53→20:43)
[2016-08-01] MEDS: VANCOMYCIN HCL 1,000 MG in NS 250 ML IV SCH ×2 (08:58→20:46)
[2016-08-01] MEDS ORDERED: FUROSEMIDE 100 MG in D5W 90 ML IV SCH (10:30)
--- NOTE | 2016-08-01 10:45 | NUR ---
MD rounds Pt awake. Pt able to follow simple commands. Pt tolerating vent settings. Pt denies SOB, pain, or discomfort. Dr. Andrew at the bedside discussing plan of care with Pt. Informed Pt to push the call light if Pt needs assistance with anything. Pt nodded. Currently awaiting new orders. HOB elevated 45 degree angle, call light within easy reach, bed at lowest position, will continue to monitor.
--- NOTE | 2016-08-01 11:28 | NUR ---
RANDALL SCALE EVALUATION: Patient evaluated for a low Randall score of 13. Patient was awake, alert, oriented, and received in a Kai bed with an IsoFlex EDUARDA mattress with low air-loss therapy. On ETT to Ventilator. Patient is unable to turn independently. Skin is fair (-); Buttocks have erythema from IAD; Abdominal folds have redness from moisture. Recommend reposition patient side to side only every 2 hours with pillow support and off-load pressure areas with pillows for pressure re-distribution. Elevate, off-load and float bilateral heels with pillows. Use moisture barrier cream on buttocks and other moisture susceptible areas QID and as needed for soiling. Perform skin care and monitor skin integrity Q shift. Maintain patient on low air-loss therapy.
[2016-08-01 11:37] LABS: ABG TOTAL HEMOGLOBIN 10.4 G/dL (12.0-18.0); BLOOD GAS BASE EXCESS 7.7 mmol/L (-3.0-3.0); BLOOD GAS COHb% 1.6 % (0.5-1.5); BLOOD GAS PH 7.255 (7.350-7.450); BLOOD O2Hb% 94.5 % (94.0-97.0)
[2016-08-01 11:38] LABS: BLOOD GAS HHB 3.4 % (0.0-6.0)
[2016-08-01] MEDS: LACTOBACILLUS RHAMNOSUS GG 1 CAP CAPSULE PO SCH ×2 (11:38→20:43)
--- NOTE | 2016-08-01 12:00 | NUR ---
Dr. Whitten at the bedside discussing plan of care. Informed Pt's family to push the call light if Pt needs assistance with anything. Pt's family verbalized understanding. V/S stable, call light within easy reach, bed at lowest position, HOB elevated 45 degree angle, will continue to monitor.
--- NOTE | 2016-08-01 13:33 | NUR ---
CHG, lisandro care, skin care, linen change Pt awake. Pt able to follow simple commands. CHG bath, lisandro care, skin care, and linen change provided. Pt family at the bedside assisting with care. Pt tolerated care. Informed Pt and Pt's family to push the call light if Pt needs assistance with anything. Pt's family verbalized understanding. HOB elevated 45 degree angle, call light within easy reach, bed at lowest position, will continue to monitor.
--- NOTE | 2016-08-01 14:07 | NUR ---
MD rounds Pt asleep. Pt easily aroused by voice. Dr Mena and Pt's family at the bedside discussing plan of care. Informed Pt's family to push the call light if Pt needs assistance with anything. Pt's family verbalized understanding. V/S stable, call light within easy reach ,bed at lowest position, HOB elevated 45 degree angle, will continue to monitor.
--- NOTE | 2016-08-01 15:33 | NUR ---
Nutrition Note Dr. Mena signed RD nutrition note. RD updated TF regimen to include free water flush per MD.
--- NOTE | 2016-08-01 20:00 | NUR ---
ORALLY INTUBATED. AWAKE, ALERT. OPENS EYES SPON. ABLE TO FOCUS. DENIES PAIN. SQUEEZES HANDS ON COMMAND. SUCTIONED ETT VIA DELONG WITH MOD AMOUNT OF THIN WHITE MUCUS OBTAINED. ORAL CARE GIVEN. OGT FEEDING WITH DIABETISOURCE AC AT 50CC/HR. BLAKE PICC LINE DRSG D/I. ROMMEL SOFT WRIST RESTRAINTS ON FOR SAFETY. MORBIDLY OBESE. ENTEROCUTANEOUS FISTULA IN UPPER RIGHT ABDOMEN WITH YELLOW BROWN SECRETIONS TO DRAINAGE BAG. BRAGA CATH PATENT DRAINING CLOUDY MIKE URINE TO GRAVITY. FLEXISEAL IN PLACE WITH DARK BROWN WATERY STOOL NOTED.
[2016-08-01] MEDS: ENOXAPARIN SODIUM 40 MG/0.4 ML SYRINGE SUBCUT SCH (20:42)
[2016-08-01] MEDS: SOD FERRIC GLUC COMPLEX/SUC 125 MG in NS 100 ML IV SCH (20:44)
--- NOTE | 2016-08-01 22:00 | NUR ---
BOUTS OF RESTLESSNESS. HS CARE. CIRCULATION CHECK DONE. TURNED. SUCTIONED. PROSOUCE GIVEN WITH MEDS. ACCU-CHEK 201, 4 UNITS REGULAR INSULIN SQ GIVEN PER SLIDING SCALE COV. OGT FLUSHED WITH 100CC H2O.
[2016-08-02] VITALS (35 sets, daily range): BP systolic 116–165; BP diastolic 61–96; PULSE 54–89; RESP 10–22; TEMP 98.4–100; O2SAT 92–95
--- NOTE | 2016-08-02 | NUR ---
AWAKE. SUCTIONED ORAL CARE GIVEN. VSS. REPOSITIONED. RESIDUAL CHECK 0.
[2016-08-02] MEDS: IPRATROPIUM/ALBUTEROL SULFATE 3 ML AMPUL.NEB INH SCH ×4 (01:05→19:23)
--- NOTE | 2016-08-02 02:00 | NUR ---
SLEPT INTERMITTENTLY. SUCTIONED. TURNED. PULSES PALPABLE.
--- NOTE | 2016-08-02 04:00 | NUR ---
DOZES ON AND OFF. SUCTIONED. ORAL CARE GIVEN. RESIDUAL CHECK 0. OGT FLUSHED WITH 100CC H2O. AM CARE. TEMP 100, TEMPORAL ARTERY SCAN. COOLING MEASURES, ELECTRIC FAN ON.
--- NOTE | 2016-08-02 06:00 | NUR ---
SUCTIONED AND TURNED Q2 HRS AND PRN. UO 1500 OUT. STILL ON LASIX DRIP AT 3 MG/HR. ENTEROCUTANEOUS FISTULA WITH 100CC OUT. FLEXISEAL ABOUT 200CC OUT. ACCU-CHEK 230, 4 UNITS REG INSULIN SQ GIVEN. REMAINS IN GUARDED C ONDITION.
[2016-08-02] MEDS: PIPERACILLIN/TAZO 4.5GM/DEX-IS 100 ML IV SCH ×3 (06:30→21:25)
[2016-08-02 06:34] LABS: HEMATOCRIT 29.6 % (36-48); HEMOGLOBIN 9.2 g/dL (12.0-16.0); MEAN CORPUSCULAR HEMOGLOBIN 27 pg (27-31); MEAN CORPUSCULAR HGB CONC 31 % (32-36); MEAN CORPUSCULAR VOLUME 86 fL (79.0-98.0); PLATELET COUNT (AUTO) 220 K/uL (130-430); RED BLOOD CELL COUNT(AUTO) 3.46 MIL/uL (4.2-6.2); RED CELL DISTRIBUTION WIDTH 17.9 % (9.0-15.0)
[2016-08-02 06:41] LABS: ALANINE AMINOTRANSFERASE 13 U/L (12-78); ALBUMIN 2.2 g/dL (3.4-4.8); ANION GAP 5 (5-15); ASPARTATE AMINOTRANSFERASE 13 U/L (10-37); CALCIUM 8.7 mg/dL (8.4-11.0); CHLORIDE 100 mmol/L (98-107); CREATININE 0.98 mg/dL (0.55-1.30); GLUCOSE 205 mg/dL (70-99); SODIUM SERUM 140 mmol/L (136-145); TOTAL BILIRUBIN 0.3 mg/dL (0.0-1.0); TOTAL PROTEIN, SERUM 7.5 g/dL (6.4-8.3); UREA NITROGEN, BLOOD 22 mg/dL (8-21)
[2016-08-02 06:56] LABS: WHITE BLOOD COUNT (AUTO) 14.3 K/uL (4.8-10.8)
[2016-08-02] MEDS: INSULIN REGULAR, HUMAN 100 UNITS/ML, 10 ML VIAL (novoLIN R) SUBCUT PRN ×4 (07:12→22:20)
[2016-08-02 07:26] LABS: ATYPICAL LYMPHOCYTES % 0 % (0-0); BAND % (MANUAL) 0 % (0-6); BASOPHILS % (MANUAL) 0 % (0-2); EOSINOPHILS % (MANUAL) 3 % (0-7); LYMPHOCYTES % (MANUAL) 10 % (20-46); MONOCYTES % (MANUAL) 6 % (0-11)
--- NOTE | 2016-08-02 08:00 | NUR ---
RECEIVED PT AROUSABLE ON VENT AND OPENS EYES TO NAME. RESTRAINTS IN USE TO PREVENT SELF EXTUBATION. ET TO VENT ON SIMV 10/PS/10/650/30%/P5. NO DISTRESS ON THESE SETTINGS. LUNGS WITH CRACKLES AND DIMINISHED. SECRETIONS BLOODY FROM ET. ORAL CARE DONE. RIGHT ARM PICC WITH LR AT 30 CC/HR AND A LASIX DRIP INFUSING AT 3 MG/HR. GOOD URINE OUTPUT IN BRAGA BAG. SR ON MONITOR, BP STABLE. FLEXI-SEAL IN PLACE WITH STOOL IN BAG. ABD WITH BOWEL SOUNDS. ABD LARGE ROUND A WITH FISTULA IN UPPER PART. OSTOMY BAG OVER FISTULA WITH YELLOW DRAINAGE IN BAG. ALL EXTREMITIES EDEMATOUS. FEET LIFTED OFF BED WITH PILLOWS. UNDER BOTH BREASTS IS A YEAST LIKE RASH WITH INTER DRY IN PLACE. PT IN ISOLATIN FOR MRSA NARES. WILL CONTINUE TO MONITOR.
[2016-08-02 08:27] LABS: BLOOD GAS PH 7.388 (7.350-7.450)
[2016-08-02 08:28] LABS: BLOOD GAS BASE EXCESS 10.7 mmol/L (-3.0-3.0); BLOOD GAS COHb% 1.2 % (0.5-1.5); BLOOD GAS HHB 6.7 % (0.0-6.0); BLOOD O2Hb% 91.7 % (94.0-97.0)
[2016-08-02] MEDS: MUPIROCIN 2% TOPICAL OINTMENT 22 GM TP SCH ×2 (09:00→21:24)
[2016-08-02] MEDS: ATORVASTATIN 20 MG TABLET PO SCH (09:55)
[2016-08-02] MEDS: PANTOPRAZOLE SODIUM 40 MG/VIAL (PROTONIX) IVP SCH ×2 (09:55→21:23)
[2016-08-02] MEDS: MULTIVITAMINS,THERAPEUTIC 5 ML UDC GT SCH ×2 (09:55→21:21)
[2016-08-02] MEDS: FLUoxetine HCL 20 MG CAPSULE (PROzac) PO SCH (09:56)
[2016-08-02] MEDS: LACTOBACILLUS RHAMNOSUS GG 1 CAP CAPSULE PO SCH (09:56)
[2016-08-02] MEDS: POTASSIUM CHLORIDE 20 MEQ/PKT PACKET PO SCH ×3 (09:59→21:24)
--- NOTE | 2016-08-02 10:00 | NUR ---
DR NIEVES IN TO SEE PT. ORDERS LEFT AND PT PLACED ON SIMV OF 4 BY RT. Addendum: 08/02/16 at 2019 by Zuri Philip RN ABOVE ENTRY OCCURRED AT 1125 NOT 1000.
[2016-08-02] MEDS: CYANOCOBALAMIN 1000 mCg TABLET PO SCH (10:02)
[2016-08-02] MEDS: VANCOMYCIN HCL 1,000 MG in NS 250 ML IV SCH ×2 (10:05→21:23)
--- NOTE | 2016-08-02 11:00 | NUR ---
DR NIEVES MADE AWARE THAT ET SECRETIONS ARE BLOODY. LOVENOX HELP THIS AM AND NOW ORDERS TO STOP GIVEN.
--- NOTE | 2016-08-02 11:25 | NUR ---
RT NOTES Vent settings to SIMV [address] Andrew's order. No immediate adverse reactions noted. Pt. was educated on changes on machine, appears to understand and denies SOB. Will cont. to monitor pt.
--- NOTE | 2016-08-02 12:00 | NUR ---
RT NOTES Vent settings back to previous settings of SIMV 10 due to SOB, per Dr Andrew's outstanding order.
--- NOTE | 2016-08-02 12:00 | NUR ---
PT RESTLESS AND STATES SHE IS HAVING TROUBLE BREATHING. 02 SATS 86% AND RR 28/MIN. HR 100. RT SHANGED PT BACK TO SIMV 10 AND PT MEDICATED WITH ATIVAN IVP ORDERED. DR NIEVES AWARE.
--- NOTE | 2016-08-02 13:30 | NUR ---
SCD'S PLACED ON PT IN PLACE OF LOVENOX.
--- NOTE | 2016-08-02 14:29 | NUR ---
Nutrition F/U Admitting Diagnosis Acute respiratory failure Past Medical History COPD, chronic respiratory failure, HLD, DM, CHF per MD notes Pt also found w/ acute hypercapnic respiratory failure, enterocutaneous fistula, mild protein malnutrition, morbid obesity Pertinent Medications Lipitor, protonix IV, morphine, zofran, SSI, D50%-syringe, piperacillin/tazobactam IV, KCl packet, ativan, vancomycin/NaCl IV, MVI, ferric Na gluconate complex, vancomycin per pharmacy, lovenox, furosemide/dextrose drip Current Diet Order Diabetisource AC at 50 ml/hr, 100 ml free water flush q6h, Prosource TID via OGT Height (Feet) 5 feet Height (Inches) 5.00 inches Weight (Pounds) 306 pounds (admission) -- bedscale (07/30/16): 317 lbs/144 kg (unsure of accuracy) -- (08/02/16): 314 lb/143 kg per bedscale. Weight (Calculated Kilograms) 138.228986 kilograms Patient Weight 138.799 kg Body Mass Index 50.92 kg/m2 (obesity class III) Hammond/Adjusted Body Weight IBW: 125 lb, 57 kg. 244% of IBW. Adj IBW (obesity): 244 lb, 111 kg Estimated Needs (modified) 0372-1451 kcal/day (11-14 kcal/kg CBW for vent support) Grams of Protein per Day 114-143 gm/day (2-2.5 gm/kg IBW for COPD and vent support) Fluid Intake Goal Per MD for Hx of CHF Pertinent Labs 08/02/16: WBC 14.3 H (improving), Hgb 9.2 L, Hct 29.6 L, K 4.0 WNL (improved), BUN 22 H, BG 205 H, POC BG 230 H, ALB 2.2 L 07/28/16: Iron 23 L, TIBC 238 L, HgbA1c 7.4 H 07/27/16: Lactic acid 2.5 H Other Subjective Data Physical Assessment: Pt seen resting in bed, +intubated, +sedated, +mechanical ventilator, TF infusing per MD orders. Pt is awake and alert. No caregivers present at bedside. Pt appeared overnourished for height and edematous. Propofol DC'd. GI Integrity: Per EMR, abdomen is soft with active bowel sounds. Pt has rectal tube, 200 ml output recorded today. Tube feeding: Per EMR, 0 ml residuals today. Current TF regimen with Prosource TID provides: 1620 kcal/day, 117 gm protein/ day, 1469 ml free water/day. This meets: 106% of the lower end of estimated energy needs and 103% estimated protein needs per day. Adequate and appropriate. Per RN, pt was not previously receiving ProSource TID because it was not available. sports broadcasting internship informed RN that ProSource was now available in pantry, RN to give as ordered. Integumentary: Per EMR, Randall scale: 12, Redness to anterior chest, left proximal abdomen, lower abdomen, perineal area, and right abdomen. Catering Server note (08/01/16): Buttocks have erythema from IAD; Abdominal folds have redness from moisture. Plans/Procedures: Per MD, diurese as tolerated. Recommend RD to adjust nutritional needs and TF regimen (if necessary) if/when pt is weaned off of mechanical ventilator. Pt is not appropriate for nutrition education. Problem, Etiology, Signs/Symptoms Increased nutritional requirements related to acute state and vent support as evidenced by elevated WBC and lactic acid lab draws, and estimated nutritional requirements. Expected Outcomes or Goals - Monitor tolerance to EN w/ goal of pt meeting at least 50% of estimated nutritional needs, labs trending WNL, normal GI function, and skin integrity/wt maintenance Dietitian Recommendations * Continue Diabetisource AC at 50 ml/hr, Prosource TID, Free Water Flush: 100 ml q6hr via OGT per MD orders. This provides: 1620 kcal/day, 117 gm protein/day, 1469 ml free water/day. This meets: 106% of the lower end of estimated energy needs and 103% estimated protein needs per day. Follow Up High Risk: F/U in 2-3days Addendum: 08/03/16 at [address] LESLY reviewed/approved internet retailer note. LP. GRACE
--- NOTE | 2016-08-02 15:50 | NUR ---
RT NOTES Per Dr Andrew via RN, tried pt on SIMV 6 PS 10, pt. almost instantaneously, pt became tachypneic, R.R in the 30s, abnormal breathing pattern noted, pt. was observed for 5 minutes and R.R did not improve. Dtr at bedside aware of the trial. RN was notified. @ 1555, switched vent setting back to SIMV 10 PS 10.
--- NOTE | 2016-08-02 15:50 | NUR ---
RT PLACED PT ON SIMV 6. PT UNABLE TO TOLERATE IT. PLACED BACK TO SIMV 10 ORDERED.
[2016-08-02] MEDS: LR 1,000 ML IV SCH (18:10)
--- NOTE | 2016-08-02 18:30 | NUR ---
PT IS COMFORTABLE ON SIMV 10. NO DISTRESS. WILL CONTINUE TO MONITOR.
--- NOTE | 2016-08-02 19:30 | NUR ---
RT NOTES REC'D PT ON VENT WITH SETTINGS OF SIMV10/650/PS10/+5/30% VENT AND APNEA ALARMS SET AND FUNCTIONING. PT NESTOR SIMV SETTINGS WELL. ETT IS TAPED AND SECURE AT 25 LIP LINE. MED NEB TX GIVEN INLINE WITHOUT ADVERSE REACTION NOTED. SXND PRN WITH SCANT BLOOD TINGE SECRETIONS. BS CLEAR THROUGH OUT. NO RESP DISTRESS NOTED. AMBU BAG IS AT BEDSIDE.
--- NOTE | 2016-08-02 20:00 | NUR ---
AWAKE. ORALLY INTUBATED. ABLE TO FOCUS EYES. SQUEEZES HANDS ON COMMANDS. SUCTIONED WITH SCANT AMOUNT OF RED TINGED MUCUS OBTAINED. ORAL CARE GIVEN. ROMMEL SOFT WRIST RESTRAINTS ON FOR SAFETY. OGT WITH DIABETISOURCE AC AT 50CC/HR. RESIDUAL CHECK 0. ENTEROCUTANEOUS FISTULA WITH BROWN SECRETIONS TO DRAINAGE BAG. BRAGA CATH PATENT DRAINING CLEAR YELLOW URINE TO GRAVITY. FLEXISEAL IN PLACE WITH BROWN WATERY STOOL NOTED. ROMMEL SCD'S NOTED. SR. CONTACT ISOLATION OBSERVED. Addendum: 08/03/16 at 0142 by Nicholas Merritt RN ON LASIX DRIP AT 3 MG/HR. BLAKE PICC LINE DRSG D/I.
[2016-08-02] MEDS: SOD FERRIC GLUC COMPLEX/SUC 125 MG in NS 100 ML IV SCH (21:22)
--- NOTE | 2016-08-02 22:00 | NUR ---
SUCTIONED WITH MOD AMOUNT OF WHITE MUCUS OBTAINED. ACCU-CHEK 190, 2 UNITS REGULAR INSULIN SQ GIVEN. UO GOOD. CIRCULATION CHECK DONE. HS CARE. TURNED. PROSOURCE GIVEN.
[2016-08-03] VITALS (36 sets, daily range): BP systolic 123–178; BP diastolic 52–100; PULSE 64–108; RESP 11–32; TEMP 97.1–98.6; O2SAT 92–99
--- NOTE | 2016-08-03 | NUR ---
DOZES ON AND OFF. PULSES PALPABLE. RESIDUAL CHECK O. SUCTIONED AGAIN WITH SAME RESULTS. ORAL CARE GIVEN. OGT FLUSHED WITH 100CC H2O.
[2016-08-03] MEDS: IPRATROPIUM/ALBUTEROL SULFATE 3 ML AMPUL.NEB INH SCH ×4 (01:16→19:38)
--- NOTE | 2016-08-03 02:00 | NUR ---
DOZES ON AND OFF. SUCTIONED. UO GOOD. REPOSITIONED.
--- NOTE | 2016-08-03 04:00 | NUR ---
AWAKE. CHG BATH GIVEN. ORAL CARE. ARMOND-CARE. BACK CARE. BRAGA CARE. Z-GUARD APPLIED TO REDDENED AREAS AND SKIN FOLDS. SKIN CARE DONE. COMPLETE LINEN CHANGE. DOES NOT ASSIST WITH TURNING. NESTOR PROC WELL. RESIDUAL CHECK 0.
--- NOTE | 2016-08-03 06:00 | NUR ---
SUCTIONED AND TURNED Q2 HRS AND PRN. UO GOOD. OGT FLUSHED WITH 100CC H2O. FLEXISEAL IN PLACE. ACCU-CHEK 201, 4 UNITS REGULAR INSULIN SQ GIVEN. REMAINS IN GUARDED CONDITION.
[2016-08-03] MEDS: INSULIN REGULAR, HUMAN 100 UNITS/ML, 10 ML VIAL (novoLIN R) SUBCUT PRN ×4 (06:22→21:06)
[2016-08-03 06:39] LABS: ANION GAP 1 (5-15); CALCIUM 8.8 mg/dL (8.4-11.0); CHLORIDE 102 mmol/L (98-107); CREATININE 0.96 mg/dL (0.55-1.30); GLUCOSE 189 mg/dL (70-99); POTASSIUM 3.6 mmol/L (3.5-5.1); RED BLOOD CELL COUNT(AUTO) 3.62 MIL/uL (4.2-6.2); SODIUM SERUM 139 mmol/L (136-145); UREA NITROGEN, BLOOD 21 mg/dL (8-21)
[2016-08-03 06:58] LABS: BASOPHILS % (AUTO) 0.2 % (0.0-2.0); EOSINOPHILS # (AUTO) 0.3 K/uL (0.0-0.4); EOSINOPHILS % (AUTO) 2.2 % (0.0-4.0); HEMATOCRIT 30.6 % (36-48); HEMOGLOBIN 9.5 g/dL (12.0-16.0); LYMPHOCYTES # (AUTO) 0.9 K/uL (1.0-5.5); MEAN CORPUSCULAR HEMOGLOBIN 26 pg (27-31); MEAN CORPUSCULAR HGB CONC 31 % (32-36); MEAN CORPUSCULAR VOLUME 84 fL (79.0-98.0); MONOCYTES # (AUTO) 0.7 K/uL (0.0-1.0); MONOCYTES % (AUTO) 5.5 % (1.7-9.3); NEUTROPHILS # (AUTO) 10.4 K/uL (1.8-7.7); NEUTROPHILS % (AUTO) 85.1 % (40.0-70.0); PLATELET COUNT (AUTO) 229 K/uL (130-430); WHITE BLOOD COUNT (AUTO) 12.3 K/uL (4.8-10.8)
--- NOTE | 2016-08-03 07:50 | NUR ---
AM ASSESSMENT. PT MAKES EYE CONTACT, ON A VENTILATOR, ORAL CARE DONE, TEMP IN NORMAL RANGE, GTUBE FEEDING TOLERATED WELL, ABDOMEN SOFT ON PALPATION, FLEXISEAL INTACT, BRAGA CATHETER DRAINING WELL, LASIX DRIP AT 3 MG PER HR, LR AT 30 ML PER HR, ISOLATION PRECAUTION, MRSA, WBC 12.3.
[2016-08-03 08:11] LABS: BLOOD GAS PH 7.408 (7.350-7.450)
[2016-08-03 08:12] LABS: ABG TOTAL HEMOGLOBIN 10.6 G/dL (12.0-18.0); BLOOD GAS BASE EXCESS 12.2 mmol/L (-3.0-3.0); BLOOD GAS COHb% 0.9 % (0.5-1.5); BLOOD GAS HHB 6.3 % (0.0-6.0); BLOOD O2Hb% 92.3 % (94.0-97.0)
[2016-08-03] MEDS: MULTIVITAMINS,THERAPEUTIC 5 ML UDC GT SCH ×2 (08:17→21:04)
[2016-08-03] MEDS: POTASSIUM CHLORIDE 20 MEQ/PKT PACKET PO SCH ×3 (08:17→21:04)
[2016-08-03] MEDS: FLUoxetine HCL 20 MG CAPSULE (PROzac) PO SCH (08:17)
[2016-08-03] MEDS: ATORVASTATIN 20 MG TABLET PO SCH (08:17)
[2016-08-03] MEDS: VANCOMYCIN HCL 1,000 MG in NS 250 ML IV SCH ×2 (08:18→21:03)
[2016-08-03] MEDS: PANTOPRAZOLE SODIUM 40 MG/VIAL (PROTONIX) IVP SCH ×2 (08:18→21:04)
[2016-08-03] MEDS: CYANOCOBALAMIN 1000 mCg TABLET PO SCH (08:19)
[2016-08-03] MEDS: MUPIROCIN 2% TOPICAL OINTMENT 22 GM TP SCH ×2 (08:19→21:04)
[2016-08-03] MEDS: LORazepam 2 MG/ML VIAL IVP PRN ×2 (08:20→22:42)
--- NOTE | 2016-08-03 08:20 | NUR ---
ANXIETY. PT OBSERVED TO BE TEARY, WAVING HER HAND, STAYED WITH PT, GENTLY RUBBING HER HAND WHILE TALKING TO HER, COUGHING AT TIMES, SHORT OF BREATH AFTER EACH ATTACK, OFFERED A SEDATIVE, PT NODDED HER HEAD, MEDICATED WITH ATIVAN 1 MG IVP.
--- NOTE | 2016-08-03 09:50 | NUR ---
REST. PT DROWSY, OPENED HER EYES WHEN NAME WAS CALLED.
--- NOTE | 2016-08-03 10:00 | NUR ---
IV DRIPS. DR NIEVES AT BEDSIDE, ORDERED TO CHANGE LASIX DRIP TO 2 MG PER HR, ORDERS CARRIED OUT.
--- NOTE | 2016-08-03 10:18 | NUR ---
RT NOTES Vent settings to SIMV [address] Andrew's order. Pt. was observed for 5 minutes, pt's R.R high 20s to low 30s @1028 Dr Andrew made aware and ordered to change to SIMV 8 & try SIMV 6 again later today. RN present during verbal order. @1030 vent setting to SIMV 8.
[2016-08-03] MEDS: FUROSEMIDE 100 MG in D5W 90 ML IV SCH (11:57)
[2016-08-03] MEDS ORDERED: FUROSEMIDE 100 MG in D5W 90 ML IV SCH (12:00)
--- NOTE | 2016-08-03 14:00 | NUR ---
NURSING. PT'S DAUGHTER SHANDA CAME IN TO VISIT, UPDATE ON HER STATUS PROVIDED. PAGED DR NIEVES SHE REQUESTED. CALLED BACK AND HAD HER TALK TO THE DAUGHTER.
--- NOTE | 2016-08-03 15:45 | NUR ---
RT NOTES Per Dr Andrew's order, vent to SIMV 6. Pt. is alert, educated on vent setting change, as well as proper breathing technique. She nods head to indicate understanding and no difficulty breating. Dtr at bedside, encouraging pt. as well. Pt. was observed for 8 minutes, no respiratory distress, R.R remains low to mid 20s. @1558 called to bedside, per dtr. pt. is complaining of SOB, confirmed with pt and switched back to SIMV 8. RN at bedside observed SOB.
[2016-08-03] MEDS: LR 1,000 ML IV SCH (15:54)
--- NOTE | 2016-08-03 16:00 | NUR ---
HYGIENE. TURNED PT CAREFULLY, SKIN WASHED WITH WET WIPES, Z-GUARD LOTION TO DENUDED AREAS, UNDER HER BREASTS, PERINEAL CARE RENDERED.
[2016-08-03] MEDS ORDERED: CYANOCOBALAMIN 1000 MCG/ML VIAL IM ONE (17:00)
--- NOTE | 2016-08-03 17:30 | NUR ---
REST. PT COMFORTABLE AT THIS HOUR, CONTINUE ON LASIX DRIP AT 2 MG PER HR, G TUBE FEEDING AT 50 ML PER HR, HEAD OF BED ELEVATED AT 35 DEGREE ANGLE.
--- NOTE | 2016-08-03 19:45 | NUR ---
INITIAL ASSESSMENT. RECVD PT IN BED A/A/OX2.NON VERBAL. NO S/S OF PAIN OR ACUTE DISTRESS NOTED. PT IS ON [facility] VENTILATOR, WITH SETTING SIMV 8,TV 650,FIO2 30%,PEEP 5 WITH LIPLINE 25. BILAT SOFT WRIST RESTRAINT WAS NOTED,NO INJURY TO WRIST WITH GOOD CIRCULATION NOTED. PICC LINE NOTED TO BLAKE,PATENT,FLUSHING WELL BUT NO BLOOD RETURN NOTED. GTUBE FEEDING WITH DIABETISOURCE @ 50 CC/HR,NO RESIDUAL NOTED,PLACEMENT CONFIRMED WITH TWO NURSES. FLEXISEAL IS INTACT WITH 150 CC OF DARK BROWN LIQUID STOOL. ABDOMINAL DISTENDED, BS PRESENT. FISTULA DRAIN TO RT UPPER ABDOMEN WITH LIGHT YELLOW FLUID IN THE BAG.GENERALIZED EDEMA NOTED. NOTED CRACKLES TO ANTERIOR AND POSTERIOR UPPER LOBES, BILAT POST LOWER LOBES DIMINISHED. BRAGA CATHETER DRAINING YELLOW OUTPUT. LASIX DRIP AT 2 MG/ HR AND LR AT 30 ML PER HR. CONTACT ISOLATION OBSERVED D/T MRSA TO NARES. SCD IN PLACE,WILL CONT TO MONITOR.
--- NOTE | 2016-08-03 20:00 | NUR ---
RT NOTES REC'D PT ON VENT WITH SETTINGS OF SIMV8/650/PS10/+5/30% VENT AND APNEA ALARMS ARE SET AND FUNTIONING. MED NEB TX GIVEN INLINE WITHOUT ADVERSE REACTION NOTED. SXND PRN FOR SCANT AMOUNT OF THICK PALE YELLOW SECRETIONS. ETT 7.5 IS IN PLACED AND SECURED AT 25 LIP LINE. EQULA BILATERAL CHEST RISE PRESENT. BS COARSE RALES ON THE MIDDLE AND LOWER LOBE ON BOTH LUNG PERSAUD. NO RESP DISTRESS NOTED. AMBU BAG IS AT BEDSIDE.
[2016-08-03] MEDS: SOD FERRIC GLUC COMPLEX/SUC 125 MG in NS 100 ML IV SCH (21:03)
--- NOTE | 2016-08-03 22:44 | NUR ---
ADMIN ATIVAN D/T ANXIETY/RESTLESSNESS IN BED.WILL REASSESS AFTER 1 HOUR.
[2016-08-04] VITALS (35 sets, daily range): BP systolic 126–164; BP diastolic 67–92; PULSE 76–114; RESP 10–35; TEMP 97.1–99.1; O2SAT 90–98
--- NOTE | 2016-08-04 00:15 | NUR ---
MN ASSESSMENT. PT IN BED A/A/OX2.NON VERBAL. NO S/S OF PAIN OR ACUTE DISTRESS NOTED. PT IS ON [facility] VENTILATOR, WITH SETTING SIMV 8,TV 650,FIO2 30%,PEEP 5 WITH LIPLINE 25. BILAT SOFT WRIST RESTRAINT WAS NOTED,NO INJURY TO WRIST WITH GOOD CIRCULATION NOTED. PICC LINE NOTED TO BLAKE,PATENT. PT TOLERATE GTUBE FEEDING WELL WITH DIABETISOURCE @ 50 CC/HR,NO RESIDUAL NOTED. FLEXISEAL IS INTACT WITH 150 CC OF DARK BROWN LIQUID STOOL. ABDOMINAL DISTENDED, BS PRESENT. FISTULA DRAIN TO RT UPPER ABDOMEN WITH LIGHT YELLOW FLUID IN THE BAG. BRAGA CATHETER DRAINING YELLOW OUTPUT. LASIX DRIP AT 2 MG/ HR AND LR AT 30 ML PER HR. CONTACT ISOLATION OBSERVED D/T MRSA TO NARES. SCD IN PLACE,WILL CONT TO MONITOR.
[2016-08-04] MEDS: IPRATROPIUM/ALBUTEROL SULFATE 3 ML AMPUL.NEB INH SCH ×4 (01:37→20:15)
--- NOTE | 2016-08-04 01:56 | NUR ---
NOTES: -PT IS RESTING. NO S/S OF PAIN OR ACUTE DISTRESS NOTED. PT IS ON [facility] VENTILATOR, WITH SETTING SIMV 8,TV 650,FIO2 30%,PEEP 5 WITH LIPLINE 25. BILAT SOFT WRIST RESTRAINT WAS NOTED,NO INJURY TO WRIST WITH GOOD CIRCULATION NOTED. PICC LINE NOTED TO BLAKE,PATENT. PT TOLERATE GTUBE FEEDING WELL WITH DIABETISOURCE @ 50 CC/HR. FLEXISEAL IS INTACT WITH 150 CC OF DARK BROWN LIQUID STOOL. FISTULA DRAIN TO RT UPPER ABDOMEN WITH LIGHT YELLOW FLUID IN THE BAG. BRAGA CATHETER DRAINING YELLOW OUTPUT. LASIX DRIP AT 2 MG/ HR AND LR AT 30 ML PER HR. CONTACT ISOLATION OBSERVED D/T MRSA TO NARES. SCD IN PLACE,WILL CONT TO MONITOR.
--- NOTE | 2016-08-04 02:14 | NUR ---
PM Rounds pt eye closed. Open eye to voice. ETT size 7.5, lip line 23, SIMV 8, TV 650, FIO2 30%, PEEP 5. Appeared to be tolerating well. No distress noted, with breathing symmetrically, nonlabored. Pt on bilateral soft wrist restrains. pt noted fulling on tube when restrain while pt was released restrains for 8 minutes. Placed restrain back soft wrists restrains for pt's safety. on PICC on the right upper arm, infusing LR 30ml/hr and lasix at 2mg/hr. patent. 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 Pt on MRSA in the nares. Pt on contact precaution and bilateral lower extremities scd's in place. flexiseal noted, draining to gravity. duran yellow urine draining to to gravity. Safety precaution in place. Bed in the lowest position. locked. Semi garcia positioned for aspiration precaution. call light within reach. will continue to monitor Addendum: 08/05/16 at 0237 by Eloy Galeano RN incorrect time. please disregard this documentation.
[2016-08-04] MEDS: INSULIN REGULAR, HUMAN 100 UNITS/ML, 10 ML VIAL (novoLIN R) SUBCUT PRN ×4 (05:32→20:41)
[2016-08-04 06:47] LABS: BASOPHILS # (AUTO) 0.1 K/uL (0.0-0.2); BASOPHILS % (AUTO) 0.5 % (0.0-2.0); EOSINOPHILS # (AUTO) 0.2 K/uL (0.0-0.4); EOSINOPHILS % (AUTO) 1.4 % (0.0-4.0); HEMATOCRIT 31.8 % (36-48); HEMOGLOBIN 9.7 g/dL (12.0-16.0); LYMPHOCYTES # (AUTO) 1.1 K/uL (1.0-5.5); LYMPHOCYTES % (AUTO) 8.1 % (20.5-51.5); MEAN CORPUSCULAR HEMOGLOBIN 27 pg (27-31); MEAN CORPUSCULAR HGB CONC 31 % (32-36); MEAN CORPUSCULAR VOLUME 87 fL (79.0-98.0); MONOCYTES # (AUTO) 0.9 K/uL (0.0-1.0); MONOCYTES % (AUTO) 6.4 % (1.7-9.3); NEUTROPHILS # (AUTO) 11.8 K/uL (1.8-7.7); NEUTROPHILS % (AUTO) 83.6 % (40.0-70.0); PLATELET COUNT (AUTO) 286 K/uL (130-430); RED BLOOD CELL COUNT(AUTO) 3.66 MIL/uL (4.2-6.2); RED CELL DISTRIBUTION WIDTH 17.5 % (9.0-15.0); WHITE BLOOD COUNT (AUTO) 14.1 K/uL (4.8-10.8)
--- NOTE | 2016-08-04 06:49 | NUR ---
CLOSING NOTES. PT IS RESTING IN BED, NO S/S OF PAIN OR ACUTE DISTRESS NOTED. PT IS ON [facility] VENTILATOR, WITH SETTING SIMV 8,TV 650,FIO2 30%,PEEP 5 WITH LIPLINE 25. BILAT SOFT WRIST RESTRAINT WAS NOTED,NO INJURY TO WRIST WITH GOOD CIRCULATION NOTED. PICC LINE NOTED TO BLAKE BROUSSARD. GTUBE FEEDING WITH DIABETISOURCE @ 50 CC/HR. FLEXISEAL IS INTACT. FISTULA DRAIN TO RT UPPER ABDOMEN WITH LIGHT YELLOW FLUID IN THE BAG. BRAGA CATHETER DRAINING YELLOW OUTPUT. LASIX DRIP AT 2 MG/ HR AND LR AT 30 ML PER HR. CONTACT ISOLATION MRSA NARES. SCD IN PLACE. WILL ENDORSE TO ONCOMING NURSE TO CONT CARE. Addendum: 08/04/16 at 0701 by Devin Issa RN ADDL NOTE:THE PT STILL HAS OGT IN PLACE WITH SAME FEEDING RATE WITH PT TOLERATING THE ENTIRE SHIFT.
[2016-08-04 06:54] LABS: ANION GAP 3 (5-15); CHLORIDE 98 mmol/L (98-107); CREATININE 0.82 mg/dL (0.55-1.30); GLUCOSE 208 mg/dL (70-99); POTASSIUM 4.1 mmol/L (3.5-5.1); SODIUM SERUM 138 mmol/L (136-145); UREA NITROGEN, BLOOD 17 mg/dL (8-21)
--- NOTE | 2016-08-04 07:24 | NUR ---
OPENING NOTE RECEIVED REPORT FROM NIGHT NURSE, PATIENT IS RESTING COMFORTABLY IN BED WITH NO NOTED DISTRESS, DISCOMFORT OR SOB. PATIENT IS ON VENT AND SETTINGS ARE SIM 8, TV 650, FIO2 40% AND PEEP 5 AND TOLERATING WELL. PATIENT HAS A OTG WITH LIP LINE OF 25 AND HAS DIABETA SOURCE @50ML. PATIENT HAS A BRAGA WITH YELLOW URINE AND A FLEXISEAL. PICC LINE TO BLAKE AND HAS A LASIX DRIP AND LR @30ML. WILL CONTINUE TO MONITOR.
[2016-08-04 08:11] LABS: ABG TOTAL HEMOGLOBIN 10.8 G/dL (12.0-18.0); BLOOD GAS COHb% 1.2 % (0.5-1.5); BLOOD GAS HHB 7.5 % (0.0-6.0); BLOOD O2Hb% 90.7 % (94.0-97.0)
[2016-08-04] MEDS: POTASSIUM CHLORIDE 20 MEQ/PKT PACKET PO SCH ×3 (08:57→20:44)
[2016-08-04] MEDS: PANTOPRAZOLE SODIUM 40 MG/VIAL (PROTONIX) IVP SCH ×2 (08:57→20:42)
[2016-08-04] MEDS: VANCOMYCIN HCL 1,000 MG in NS 250 ML IV SCH ×2 (08:57→20:42)
[2016-08-04] MEDS: ATORVASTATIN 20 MG TABLET PO SCH (08:57)
[2016-08-04] MEDS: FLUoxetine HCL 20 MG CAPSULE (PROzac) PO SCH (08:57)
[2016-08-04] MEDS: MULTIVITAMINS,THERAPEUTIC 5 ML UDC GT SCH ×2 (08:57→20:43)
[2016-08-04] MEDS: MUPIROCIN 2% TOPICAL OINTMENT 22 GM TP SCH ×2 (09:00→20:42)
[2016-08-04] MEDS: CYANOCOBALAMIN 1000 mCg TABLET PO SCH (09:00)
--- NOTE | 2016-08-04 10:00 | NUR ---
NOTE PATIENT WAS GIVEN ALL MEDICATIONS AND TOLERATED IT WELL. PATIENT REQUESTED ATIVAN AND IT WAS GIVEN WELL. WILL CONTINUE TO MONITOR.
[2016-08-04] MEDS: FUROSEMIDE 100 MG in D5W 90 ML IV SCH ×2 (10:15→19:18)
[2016-08-04] MEDS: LORazepam 2 MG/ML VIAL IVP PRN ×2 (10:24→18:12)
--- NOTE | 2016-08-04 11:36 | NUR ---
BS CHECK PATIENT'S BS WAS CHECKED AND IT WAS 206 AND 4 UNITS OF REGULAR INSULIN WAS GIVEN WITH ANOTHER RN TO WITNESS
--- NOTE | 2016-08-04 14:15 | NUR ---
NOTE DR NIEVES WAS AT BEDSIDE AND NEW ORDERS WERE NOTED AND CARRIED OUT. PATIENT HAD A CHG BATH AND WAS REPOSITIONED AND TOLERATED WELL.
[2016-08-04 14:41] LABS: BLOOD GAS BASE EXCESS 11.2 mmol/L (-3.0-3.0)
[2016-08-04 14:42] LABS: ABG TOTAL HEMOGLOBIN 11.2 G/dL (12.0-18.0); BLOOD GAS COHb% 0.8 % (0.5-1.5); BLOOD GAS HHB 5.5 % (0.0-6.0); BLOOD O2Hb% 93.2 % (94.0-97.0)
--- NOTE | 2016-08-04 15:18 | NUR ---
DISCHARGE PLANNING DC Planning order for LTAC evaluation and transfer. Faxed DC Planning order to [place] [facility] [phone]. Notified Laurie Corea Liaison requested for patient to be evaluated. will follow up.
--- NOTE | 2016-08-04 15:46 | NUR ---
DC PLANNING Discussed dc planning w Dr Mena in [facility] station, states ordered LTAC eval & transfer. States pt will need trach, I asked if going to be done here. Dr Mena called & discussed w Dr Andrew. Per Dr Mena, Dr Andrew is going to discuss w dtr again tomorrow & plan for trach here Tomorrow or Sat. No LTAC transfer today. Updated vita Navas principal planner.
--- NOTE | 2016-08-04 15:57 | NUR ---
MD BEDSIDE DR GERMAIN WAS AT BEDSIDE AND NEW ORDERS WERE NOTED, TRACH WILL BE PLACED BEFORE PATIENT IS TRANSFERRED TO [place], AWARE AND WILL BE TRYING TO ARRANGE DISCHARGE.
--- NOTE | 2016-08-04 17:20 | NUR ---
BS CHECK PATIENT'S BS WAS CHECKED AND IT WAS 228 AND 4 UNITS OF REGULAR INSULIN WERE GIVEN WITH ANOTHER RN TO WITNESS. DAUGHTER IS AT BEDSIDE.
--- NOTE | 2016-08-04 18:19 | NUR ---
CLOSING NOTE PATIENT IS RESTING COMFORTABLY IN BED WITH NO NOTED DISTRESS, DISCOMFORT OR SOB. PATIENT WAS GIVEN ATIVAN BECAUSE SHE WAS HAVING SOME ANXIETY. PATIENT WAS REPOSITIONED AND TOLERATED IT WELL. WILL GIVE REPORT TO NIGHT NURSE.
--- NOTE | 2016-08-04 20:00 | NUR ---
PM Rounds pt eye closed. Open eye to voice. ETT size 7.5, lip line 23, SIMV 8, TV 650, FIO2 30%, PEEP 5. Appeared to be tolerating well. No distress noted, with breathing symmetrically, nonlabored. Pt on bilateral soft wrist restrains. pt noted fulling on tube when restrain while pt was released restrains for 8 minutes. Placed restrain back soft wrists restrains for pt's safety. on PICC on the right upper arm, infusing LR 30ml/hr and lasix at 2mg/hr. patent. 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 Pt on MRSA in the nares. Pt on contact precaution and bilateral lower extremities scd's in place. flexiseal noted, draining to gravity. duran yellow urine draining to to gravity. Safety precaution in place. Bed in the lowest position. locked. Semi garcia positioned for aspiration precaution. call light within reach. will continue to monitor
[2016-08-04] MEDS: SOD FERRIC GLUC COMPLEX/SUC 125 MG in NS 100 ML IV SCH (20:43)
[2016-08-05] VITALS (36 sets, daily range): BP systolic 120–156; BP diastolic 59–87; PULSE 68–101; RESP 9–37; TEMP 97.2–98.2; O2SAT 88–93
[2016-08-05] MEDS: LORazepam 2 MG/ML VIAL IVP PRN (00:53)
[2016-08-05] MEDS: IPRATROPIUM/ALBUTEROL SULFATE 3 ML AMPUL.NEB INH SCH ×2 (01:45→20:30)
[2016-08-05] MEDS: LR 1,000 ML IV SCH (06:13)
[2016-08-05] MEDS: INSULIN REGULAR, HUMAN 100 UNITS/ML, 10 ML VIAL (novoLIN R) SUBCUT PRN ×4 (06:22→21:55)
[2016-08-05 06:24] LABS: CALCIUM 8.9 mg/dL (8.4-11.0); CHLORIDE 103 mmol/L (98-107); GLUCOSE 198 mg/dL (70-99); SODIUM SERUM 140 mmol/L (136-145)
[2016-08-05 06:25] LABS: UREA NITROGEN, BLOOD 17 mg/dL (8-21)
[2016-08-05 06:43] LABS: BASOPHILS % (AUTO) 0.4 % (0.0-2.0); EOSINOPHILS # (AUTO) 0.2 K/uL (0.0-0.4); HEMATOCRIT 29.2 % (36-48); HEMOGLOBIN 9.2 g/dL (12.0-16.0); LYMPHOCYTES # (AUTO) 1.1 K/uL (1.0-5.5); LYMPHOCYTES % (AUTO) 9.4 % (20.5-51.5); MEAN CORPUSCULAR HEMOGLOBIN 27 pg (27-31); MEAN CORPUSCULAR HGB CONC 31 % (32-36); MEAN CORPUSCULAR VOLUME 87 fL (79.0-98.0); MONOCYTES # (AUTO) 0.7 K/uL (0.0-1.0); MONOCYTES % (AUTO) 5.8 % (1.7-9.3); NEUTROPHILS # (AUTO) 9.2 K/uL (1.8-7.7); NEUTROPHILS % (AUTO) 82.4 % (40.0-70.0); PLATELET COUNT (AUTO) 308 K/uL (130-430); RED BLOOD CELL COUNT(AUTO) 3.36 MIL/uL (4.2-6.2); RED CELL DISTRIBUTION WIDTH 18.3 % (9.0-15.0); WHITE BLOOD COUNT (AUTO) 11.2 K/uL (4.8-10.8)
[2016-08-05 06:56] LABS: ANION GAP < 3 (5-15)
--- NOTE | 2016-08-05 07:40 | NUR ---
AM Rounds: Received pt sitting semi-fowlers in bed. Pt is lethargic but arousable to name and light tapping. Pt is able to communicate using nods and mouthing. Pt is able to lift both hands and attempts to pull out ET tube upon waking up. Pt reoriented and is calm at this time. ET tube 7.5cm and 23 cm at lip line. Tolerates vent settings well SIMV8, Peep 5, TV 650, Fio2 30%. OG tube noted and flushing well at this time. Auscultated positive placement and able to aspirate gastric contents. PICC intact to RUE and infusing fluids and Lasix well at this time. Dressing to PICC CDI with no redness or swelling noted to site. Redness noted to lisandro-area, under breasts, under abdominal fold, and to sacral area, Z-guard applied. Edema noted to BUE and BLE, elevated on pillows. Flex-seal in place draining liquid stool well and Ricardo cath draining well to gravity. Call light in reach. Aspiration, fall, contact, and pressure ulcer precautions in place. Pt is able to make needs known. Continue to monitor pt closely.
[2016-08-05 08:40] LABS: BLOOD GAS PH 7.423 (7.350-7.450)
[2016-08-05 08:41] LABS: ABG TOTAL HEMOGLOBIN 10.8 G/dL (12.0-18.0); BLOOD GAS BASE EXCESS 11.6 mmol/L (-3.0-3.0); BLOOD GAS COHb% 1.1 % (0.5-1.5); BLOOD GAS HHB 7.1 % (0.0-6.0); BLOOD O2Hb% 91.3 % (94.0-97.0)
[2016-08-05] MEDS: POTASSIUM CHLORIDE 20 MEQ/PKT PACKET PO SCH ×3 (08:58→20:52)
[2016-08-05] MEDS: CYANOCOBALAMIN 1000 mCg TABLET PO SCH (08:58)
[2016-08-05] MEDS: PANTOPRAZOLE SODIUM 40 MG/VIAL (PROTONIX) IVP SCH ×2 (08:58→20:52)
[2016-08-05] MEDS: MUPIROCIN 2% TOPICAL OINTMENT 22 GM TP SCH ×2 (08:59→20:57)
[2016-08-05] MEDS: FLUoxetine HCL 20 MG CAPSULE (PROzac) PO SCH (08:59)
[2016-08-05] MEDS: MULTIVITAMINS,THERAPEUTIC 5 ML UDC GT SCH ×2 (08:59→20:51)
[2016-08-05] MEDS: ATORVASTATIN 20 MG TABLET PO SCH (08:59)
[2016-08-05] MEDS: VANCOMYCIN HCL 1,000 MG in NS 250 ML IV SCH ×2 (09:00→20:53)
--- NOTE | 2016-08-05 09:05 | NUR ---
RN Rounds: AM meds given per MD order. Pt tolerates well at this time. IV intact to RUE. Call light in reach. Pt denies pain. No acute signs of distress noted. Aspiration precautions in place. Continue to monitor.
[2016-08-05] MEDS: FUROSEMIDE 100 MG in D5W 90 ML IV SCH (11:35)
--- NOTE | 2016-08-05 11:50 | NUR ---
Rounds: Blood sugar checked and coverage given. No acute signs of distress noted. Pt pulled up and repositioned in bed. Call light in reach. Continue to monitor.
--- NOTE | 2016-08-05 13:20 | NUR ---
Oral Care and Suction/Bed Bath: Oral care provided and patient suctioned. Bed bath provided with assist and CHG bath given. Pt tolerates well. No acute signs of distress noted. Pt repositioned in bed. Call light in reach. Continue to monitor.
--- NOTE | 2016-08-05 14:25 | NUR ---
RANDALL RE-EVALUATION: Patient re-evaluated for a low Randall score of 12. Patient was awake, alert, oriented, and received in a Kai bed with an IsoFlex EDUARDA mattress with low air-loss therapy. On ETT to Ventilator. Patient is unable to turn independently. Skin is fair (-); Buttocks have erythema from IAD; Breast and Abdominal folds have redness from moisture. Recommend continue: Reposition patient side to side only every 2 hours with pillow support and off-load pressure areas with pillows for pressure re-distribution. Elevate, off-load and float bilateral heels with pillows. Use moisture barrier cream on buttocks, Abdominal folds, Breast folds, and other moisture susceptible areas QID and as needed for soiling. Perform skin care and monitor skin integrity Q shift. Maintain patient on low air-loss therapy.
--- NOTE | 2016-08-05 15:45 | NUR ---
Called Dr. Becky Waite at [phone] with a consult, Spoke with Breezy from doctors office Dr. Murcia is national sales associate at this time
--- NOTE | 2016-08-05 15:48 | NUR ---
Change SIMV Rate: SIMV changed to 10 by RT. Pt tolerates well. No acute signs of distress noted at this time. IV Lasix continues to infuse well. Adequate urine output noted. Call light in reach. Continue to monitor.
--- NOTE | 2016-08-05 17:29 | NUR ---
Rounds: Blood sugar checked and coverage given. Pt tolerates well. Vent and trach in place, suctioned as needed. RT at bedside. Oral care provided. Call light in reach. Daughter at bedside. Continue to monitor.
--- NOTE | 2016-08-05 18:54 | NUR ---
Closing Note: Pt sitting semi-fowlers in bed. No acute signs of distress noted at this time. Pt tolerates vent settings well, vent at trach in place. PICC intact to RUE with no redness or swelling noted to site. Pt suctioned and pulled up in bed. No other needs noted at this time. Daughter at bedside. Call light in reach. Endorse plan of care to NU RN.
--- NOTE | 2016-08-05 19:30 | NUR ---
Initial note Received report from Lise LUO. Awake, alert and oriented to name. Non-verbal. Able to make needs known by nodding or shaking head. ET tube to mechanical vent tolerating current settings. Simv 10, TV 650, Peep 5, FiO2 30%. PICC rue intact and patent with no redness or swelling to insertion site. Lasix drip infusing at 2 mg/hr. Og tube intact infusing diabetisource @ 50 cc/hr, tolerating tube feeding with no residual noted. Ricardo catheter intact and draining yellow urine. Flexiseal in place with scant black liquid stool noted. On 2 point soft wrist restraints for safety. Good capillary refill to bilateral fingers, able to move bilateral upper extremities. HOB kept elevated. Daughter at bedside.
--- NOTE | 2016-08-05 20:52 | NUR ---
Medication Due medications given as ordered. PO medications given via og tube, flushed with 100 cc water.
--- NOTE | 2016-08-05 20:52 | NUR ---
Pain Motioning to mid abdomen area. Asked if in pain there, nodded head. Asked if pain was high, shook head. Asked if pain was low, nodded head. Tramadol given as ordered.
--- NOTE | 2016-08-05 21:55 | NUR ---
Blood sugar Fingerstick checked = 187 mg/dL. No s/s of hypo/hyperglycemia. 2 units regular insulin given.
--- NOTE | 2016-08-05 22:00 | NUR ---
Oral care/reposition Suctioned orally and tracheally with large amount of whitish secretion. Oral care given. Turned and repositioned with pillow support. Tolerated well.
[2016-08-06] VITALS (36 sets, daily range): BP systolic 127–165; BP diastolic 62–90; PULSE 69–93; RESP 7–37; TEMP 96.8–98.6; O2SAT 90–98
[2016-08-06] MEDS ORDERED: NOREPINEPHRINE 4 MG/4 ML VIAL IV ONE (00:57)
[2016-08-06] MEDS: IPRATROPIUM/ALBUTEROL SULFATE 3 ML AMPUL.NEB INH SCH ×4 (01:43→20:32)
--- NOTE | 2016-08-06 04:45 | NUR ---
Hygiene Sponge bath given. Z-guard applied to reddened skin areas under breasts, abdominal fold, perineal area & buttocks. Gown and dwayne changed. Turned and repositioned with pillow support. Tolerated well.
[2016-08-06] MEDS: INSULIN REGULAR, HUMAN 100 UNITS/ML, 10 ML VIAL (novoLIN R) SUBCUT PRN ×4 (06:46→21:56)
--- NOTE | 2016-08-06 06:46 | NUR ---
Blood sugar fingerstick checked = 183 mg/dL. No s/s of hypo/hyperglycemia. 2 units regular insulin given.
[2016-08-06 06:49] LABS: BASOPHILS # (AUTO) 0.1 K/uL (0.0-0.2); BASOPHILS % (AUTO) 0.6 % (0.0-2.0); EOSINOPHILS # (AUTO) 0.4 K/uL (0.0-0.4); EOSINOPHILS % (AUTO) 3.3 % (0.0-4.0); HEMATOCRIT 29.9 % (36-48); HEMOGLOBIN 9.4 g/dL (12.0-16.0); LYMPHOCYTES # (AUTO) 1.2 K/uL (1.0-5.5); LYMPHOCYTES % (AUTO) 10.6 % (20.5-51.5); MEAN CORPUSCULAR HEMOGLOBIN 27 pg (27-31); MEAN CORPUSCULAR HGB CONC 32 % (32-36); MEAN CORPUSCULAR VOLUME 86 fL (79.0-98.0); MONOCYTES # (AUTO) 0.5 K/uL (0.0-1.0); MONOCYTES % (AUTO) 4.3 % (1.7-9.3); NEUTROPHILS # (AUTO) 9.2 K/uL (1.8-7.7); NEUTROPHILS % (AUTO) 81.2 % (40.0-70.0); PLATELET COUNT (AUTO) 379 K/uL (130-430); RED BLOOD CELL COUNT(AUTO) 3.48 MIL/uL (4.2-6.2); RED CELL DISTRIBUTION WIDTH 17.9 % (9.0-15.0); WHITE BLOOD COUNT (AUTO) 11.4 K/uL (4.8-10.8)
[2016-08-06 06:59] LABS: PROTHROMBIN TIME 11.2 SECS (9.5-12.5)
--- NOTE | 2016-08-06 07:00 | NUR ---
Closing note Resting quietly. Tolerating vent settings. Call light within reach. All needs attended to. Will give report to oncoming shift RN.
[2016-08-06 07:01] LABS: ANION GAP 2 (5-15); CALCIUM 9.3 mg/dL (8.4-11.0); CHLORIDE 102 mmol/L (98-107); CREATININE 0.85 mg/dL (0.55-1.30); GLUCOSE 194 mg/dL (70-99); POTASSIUM 4.1 mmol/L (3.5-5.1); SODIUM SERUM 141 mmol/L (136-145); UREA NITROGEN, BLOOD 20 mg/dL (8-21)
--- NOTE | 2016-08-06 07:48 | NUR ---
AM HANDOFF. REPOSITIONING OF PATIENT.
[2016-08-06] MEDS: ACETAMINOPHEN 650 MG/20.3 ML UDC GT PRN ×2 (08:56→19:42)
[2016-08-06] MEDS: PANTOPRAZOLE SODIUM 40 MG/VIAL (PROTONIX) IVP SCH ×2 (08:56→21:32)
[2016-08-06] MEDS: LORazepam 2 MG/ML VIAL IVP PRN (08:56)
[2016-08-06] MEDS: CYANOCOBALAMIN 1000 mCg TABLET PO SCH (08:56)
[2016-08-06] MEDS: ATORVASTATIN 20 MG TABLET PO SCH (08:57)
[2016-08-06] MEDS: POTASSIUM CHLORIDE 20 MEQ/PKT PACKET PO SCH ×3 (08:57→21:32)
[2016-08-06] MEDS: FLUoxetine HCL 20 MG CAPSULE (PROzac) PO SCH (08:57)
[2016-08-06] MEDS: MULTIVITAMINS,THERAPEUTIC 5 ML UDC GT SCH ×2 (08:57→21:32)
[2016-08-06] MEDS: VANCOMYCIN HCL 1,000 MG in NS 250 ML IV SCH ×2 (08:58→21:37)
[2016-08-06 09:00] LABS: ABG TOTAL HEMOGLOBIN 10.6 G/dL (12.0-18.0); BLOOD GAS BASE EXCESS 8.5 mmol/L (-3.0-3.0); BLOOD GAS COHb% 0.8 % (0.5-1.5); BLOOD GAS HHB 6.4 % (0.0-6.0); BLOOD GAS PH 7.453 (7.350-7.450); BLOOD O2Hb% 92.3 % (94.0-97.0)
[2016-08-06] MEDS: MUPIROCIN 2% TOPICAL OINTMENT 22 GM TP SCH ×2 (09:22→21:37)
[2016-08-06] MEDS: LR 1,000 ML IV SCH (10:34)
[2016-08-06] MEDS: FUROSEMIDE 100 MG in D5W 90 ML IV SCH (10:37)
--- NOTE | 2016-08-06 13:48 | NUR ---
AFTERNOON ROUNDS. NEEDS MET AT THIS TIME.
--- NOTE | 2016-08-06 18:55 | NUR ---
DOCTOR ЕКАТЕРИНА WILL CONSULT IN AM FOR TRACH. HANDOFF ROUNDS PREPARED FOR PATIENT.
--- NOTE | 2016-08-06 19:15 | NUR ---
Initial note Received report from PUJA Garcia. Awake, alert and oriented to name. Non-verbal. ET tube to mechanical vent tolerating current settings. Simv 6, TV 650, Peep 5, FiO2 35%. PICC rue intact and patent with no redness or swelling to insertion site. Lasix drip infusing at 2 mg/hr. Og tube intact infusing diabetisource @ 50 cc/hr, tolerating tube feeding with no residual noted. Ricardo catheter intact and draining yellow urine. Flexiseal in place with scant black liquid stool noted. HOB kept elevated.
--- NOTE | 2016-08-06 19:42 | NUR ---
Pain c/o pain to right leg. Asked if pain was above 6 on pain scale, denied. Tylenol given.
--- NOTE | 2016-08-06 21:56 | NUR ---
Blood sugar Fingerstick checked = 188 mg/dL. No s/s of hypo/hyperglycemia. 2 units regular insulin given.
[2016-08-07] VITALS (39 sets, daily range): BP systolic 100–170; BP diastolic 58–88; PULSE 62–100; RESP 7–31; TEMP 97–100.4; O2SAT 93–99
--- NOTE | 2016-08-07 | NUR ---
Oral care/reposition Suctioned orally and deep tracheal with moderate amount of thick whitish secretions noted. Turned and repositioned with pillow support. Tolerated well.
[2016-08-07] MEDS: IPRATROPIUM/ALBUTEROL SULFATE 3 ML AMPUL.NEB INH SCH ×4 (01:09→19:43)
[2016-08-07] MEDS: MORPHINE 2 MG/ML INJ. SYRINGE IVP PRN ×3 (05:09→23:23)
[2016-08-07] MEDS: INSULIN REGULAR, HUMAN 100 UNITS/ML, 10 ML VIAL (novoLIN R) SUBCUT PRN ×4 (06:08→20:44)
--- NOTE | 2016-08-07 06:08 | NUR ---
Blood sugar Fingerstick checked = 169 mg/dL. No s/s of hypo/hyperglycemia. 2 units regular Insulin given.
--- NOTE | 2016-08-07 07:45 | NUR ---
Closing note Resting quietly, no apparent distress. No c/o pain or discomfort. Tolerating current vent settings. All needs attended to. Will give report to oncoming shift RN.
[2016-08-07 08:09] LABS: ABG TOTAL HEMOGLOBIN 10.7 G/dL (12.0-18.0); BLOOD GAS COHb% 0.6 % (0.5-1.5); BLOOD GAS HHB 5.9 % (0.0-6.0); BLOOD GAS PH 7.604 (7.350-7.450); BLOOD O2Hb% 93.1 % (94.0-97.0)
[2016-08-07] MEDS: LORazepam 2 MG/ML VIAL IVP PRN (09:07)
[2016-08-07] MEDS: ATORVASTATIN 20 MG TABLET PO SCH (09:09)
[2016-08-07] MEDS: POTASSIUM CHLORIDE 20 MEQ/PKT PACKET PO SCH ×3 (09:09→20:37)
[2016-08-07] MEDS: PANTOPRAZOLE SODIUM 40 MG/VIAL (PROTONIX) IVP SCH ×2 (09:09→20:36)
[2016-08-07] MEDS: MULTIVITAMINS,THERAPEUTIC 5 ML UDC GT SCH ×2 (09:09→20:37)
[2016-08-07] MEDS: CYANOCOBALAMIN 1000 mCg TABLET PO SCH (09:14)
[2016-08-07] MEDS: VANCOMYCIN HCL 1,000 MG in NS 250 ML IV SCH ×2 (09:14→20:36)
[2016-08-07] MEDS: MUPIROCIN 2% TOPICAL OINTMENT 22 GM TP SCH ×2 (09:15→20:37)
[2016-08-07] MEDS: FLUoxetine HCL 20 MG CAPSULE (PROzac) PO SCH (09:26)
--- NOTE | 2016-08-07 09:50 | NUR ---
RT NOTES Found vent settings changed by Dr Wise to tidal volume of 500. Pt. appears to be tolerating well. Will monitor pt.
[2016-08-07] MEDS: LR 1,000 ML IV SCH (11:38)
[2016-08-07] MEDS: FUROSEMIDE 100 MG in D5W 90 ML IV SCH (11:38)
--- NOTE | 2016-08-07 19:57 | NUR ---
DR. CHOU CALLED WITH NEW ORDERS STATED SURGERY IS SCHEDULED FOR 1PM TOMORROW. KEEP NPO, TURN TUBE FEEDING OFF AT MIDNIGHT. STATED CALL PRIMARY DOCTOR TO CHANGE FLUIDS SINCE PT IS DIABETIC.
--- NOTE | 2016-08-07 20:01 | NUR ---
DR. JESSA MEHTA PT WILL BE NPO AND IS DIABETIC. PAGING TO SEE IF HE WOULD LIKE TO ORDER FLUIDS.
--- NOTE | 2016-08-07 20:04 | NUR ---
DR. GERMAIN/NEW ORDERS AWARE PT WILL BE NPO AT MIDNIGHT AND IS ON LR AT 10 ML/HR, DIABETIC. STATED CHANGE FLUIDS TO D5LR AT 80ML/HR STARTING AT MIDNIGHT. NEW ORDERS IN PLACE.
--- NOTE | 2016-08-07 23:16 | NUR ---
DR. GERMAIN/NEW ORDERS MD AWARE MORPHINE 2MG IVP Q1PRN FOR SEVERE PAIN . PER MD CAN RENEW MEDICATION.
[2016-08-08] VITALS (33 sets, daily range): BP systolic 97–163; BP diastolic 41–107; PULSE 61–99; RESP 10–26; TEMP 96.3–98.4; O2SAT 93–100
[2016-08-08] MEDS: D5LR 1,000 ML IV SCH ×2 (00:19→14:13)
[2016-08-08] MEDS: IPRATROPIUM/ALBUTEROL SULFATE 3 ML AMPUL.NEB INH SCH ×3 (00:55→19:52)
--- NOTE | 2016-08-08 03:45 | NUR ---
transfer of care transfer of care given to PUJA Fregoso. all needs met. pending trache placement tomorrow at 1 pm. all paperwork printed and in the chart.
--- NOTE | 2016-08-08 03:47 | NUR ---
RECEIVED PT Received report from PUJA Fitzgerald. Assumed care of pt.
[2016-08-08] MEDS: MORPHINE 2 MG/ML INJ. SYRINGE IVP PRN ×4 (04:39→17:05)
--- NOTE | 2016-08-08 06:00 | NUR ---
WATER FLUSH HELD Water flush held because pt is NPO since midnight for procedure.
[2016-08-08 06:40] LABS: ANION GAP 1 (5-15); CALCIUM 8.9 mg/dL (8.4-11.0); CHLORIDE 104 mmol/L (98-107); CREATININE 0.81 mg/dL (0.55-1.30); GLUCOSE 173 mg/dL (70-99); POTASSIUM 4.2 mmol/L (3.5-5.1); SODIUM SERUM 139 mmol/L (136-145); UREA NITROGEN, BLOOD 18 mg/dL (8-21)
[2016-08-08 06:47] LABS: BASOPHILS % (AUTO) 0.5 % (0.0-2.0); EOSINOPHILS # (AUTO) 0.4 K/uL (0.0-0.4); EOSINOPHILS % (AUTO) 3.8 % (0.0-4.0); HEMATOCRIT 30.2 % (36-48); HEMOGLOBIN 9.3 g/dL (12.0-16.0); LYMPHOCYTES % (AUTO) 10.6 % (20.5-51.5); MEAN CORPUSCULAR HEMOGLOBIN 27 pg (27-31); MEAN CORPUSCULAR HGB CONC 31 % (32-36); MEAN CORPUSCULAR VOLUME 87 fL (79.0-98.0); MONOCYTES # (AUTO) 0.4 K/uL (0.0-1.0); MONOCYTES % (AUTO) 4.8 % (1.7-9.3); NEUTROPHILS # (AUTO) 7.6 K/uL (1.8-7.7); NEUTROPHILS % (AUTO) 80.3 % (40.0-70.0); PLATELET COUNT (AUTO) 382 K/uL (130-430); RED BLOOD CELL COUNT(AUTO) 3.47 MIL/uL (4.2-6.2); RED CELL DISTRIBUTION WIDTH 18.7 % (9.0-15.0); WHITE BLOOD COUNT (AUTO) 9.4 K/uL (4.8-10.8)
[2016-08-08] MEDS: LORazepam 2 MG/ML VIAL IVP PRN ×3 (06:52→17:05)
[2016-08-08] MEDS: INSULIN REGULAR, HUMAN 100 UNITS/ML, 10 ML VIAL (novoLIN R) SUBCUT PRN ×3 (07:00→20:12)
--- NOTE | 2016-08-08 07:20 | NUR ---
CLOSING NOTE / ENDORSEMENT Pt tolerating current vent settings with O2 SAT of 97%. Pt alert and able to nod yes/no to communicate needs. Pt has been NPO since midnight with D5LR infusing at 80 mL/hr via BLAKE PICC. OGT is present and clamped. Ricardo and flexiseal are in place. All meds adminstered per orders. All needs met. Report given and all care endorsed to oncoming day shift RN.
--- NOTE | 2016-08-08 08:00 | NUR ---
OPENING NOTE: RECEIVED REPORT FROM H[facility]MERSM[facility] HELPER NURSE. PATIENT IS AWAKE AND ALERT. ABLE TO NOD YES/NO TO COMMUNICATE NEEDS. NO S/S OF DISTRESS OR SOB. PATIENT IS INTUBATED WITH VENT SETTINGS SET AT TIDAL VOLUME OF 500, FIO2 35%, AND PEEP OF 5. PICC LINE IS PATENT AND INFUSING, DRESSING CDI. BRAGA IS DRAINING TO GRAVITY. FLEXI SEAL IN PLACE. OGT IS CLAMPED. ORAL CARE WAS ADMINISTERED. PATIENT TOLERATED WELL. SAFETY PRECAUTIONS IN PLACE AND WILL CONTINUE TO MONITOR. Addendum: 08/08/16 at 0850 by Chloe Morris RN RECEIVED REPORT FROM PUJA Fregoso.
[2016-08-08] MEDS: PANTOPRAZOLE SODIUM 40 MG/VIAL (PROTONIX) IVP SCH ×2 (08:58→20:08)
[2016-08-08] MEDS: POTASSIUM CHLORIDE 20 MEQ/PKT PACKET PO SCH ×3 (08:58→20:08)
[2016-08-08] MEDS: MULTIVITAMINS,THERAPEUTIC 5 ML UDC GT SCH ×2 (08:58→20:08)
[2016-08-08] MEDS: VANCOMYCIN HCL 1,000 MG in NS 250 ML IV SCH ×2 (08:58→20:08)
[2016-08-08] MEDS: ATORVASTATIN 20 MG TABLET PO SCH (08:59)
[2016-08-08] MEDS: FLUoxetine HCL 20 MG CAPSULE (PROzac) PO SCH (08:59)
[2016-08-08] MEDS: CYANOCOBALAMIN 1000 mCg TABLET PO SCH (08:59)
[2016-08-08] MEDS: MUPIROCIN 2% TOPICAL OINTMENT 22 GM TP SCH ×2 (09:01→20:08)
--- NOTE | 2016-08-08 10:28 | NUR ---
ROUNDS PATIENT IS RESTING COMFORTABLY IN BED. NO S/S OF DISTRESS OR SOB. FAMILY IS AT BEDSIDE. PATIENT IS STILL NPO. IV MEDICATIONS ADMINISTERED. WILL CONTINUE TO MONITOR.
--- NOTE | 2016-08-08 12:00 | NUR ---
Pt given CHG bath and oral care. Pt requesting pain meds. Will administer per order. SR. Afebrile. Head of bed elevated. Will continue to monitor.
--- NOTE | 2016-08-08 13:50 | NUR ---
Pt to OR for tracheostomy with RN, RT, transporter, and family.
[2016-08-08] MEDS ORDERED: SEVOFLURANE 15 MIN GAS INH ONE (13:55)
[2016-08-08] MEDS ORDERED: ROCURONIUM BROMIDE 10 MG/ML (ZEMURON) IV ONE (13:55)
[2016-08-08] MEDS ORDERED: LR 1,000 ML IV.SOLN IV ONE (13:55)
--- NOTE | 2016-08-08 15:39 | NUR ---
Pt coming back from PACU.
--- NOTE | 2016-08-08 16:42 | NUR ---
Case mgt: S/W dtr Maria Del Carmen per her request after pt had tracheostomy insertion today. Answered her questions about discharge plan of care:ie-it would depend on her level of care needed, which we would evaluate with the MD in a few days from today. I explained that pt may need LTAC level of care, or possibly SNF level with sub-acute placement. I explained what these different levels of care were, and that either level might need approval of [facility] insurance, as this is patient's 2ndary insurance. I gave Maria Del Carmen pamphlet on [facility] and another list of different LTAC hospitals, as well as a list of sub-acute SNFs. Maria Del Carmen had asked about [facility] in [place], which I explained only had SNF (no sub-acute) so patient could not go there with a trach in place. I explained that while pt has a trach in place and medically stable, she would always require sub-acute SNF level of care. Maria Del Carmen verbalized understanding. The surgeon came into the waiting room post-tracheostomy procedure and explained to Maria Del Carmen and her family how pt was doing and that pt was back in the ICU. POLINA LUO
--- NOTE | 2016-08-08 19:44 | NUR ---
PM NOTE PT RESTING WITH EYES CLOSED, TRACHE WAS PLACED TODAY. VENT SETTINGS AC 10, TV 500, FI02 50%, PEEP 5. BRAGA CATHETER PRESENT DRAINING TO GRAVITY, FLEXI SEAL PRESENT. BLAKE PICC LINE PRESENT RUNNING D5LR AT 80ML/HR. PENDING SWALLOW EVAL TOMORROW. FALL RISK PRECAUTIONS IN PLACE, CALL LIGHT WITHIN REACH. RESTING ON AIR MATTRESS. WILL CONTINUE TO MONITOR. BED ALARM ON.
--- NOTE | 2016-08-08 22:27 | NUR ---
resting no s/s of respiratory distress noted, vital signs stable. frequent monitoring being done. bed in low position, call light within reach, bed alarm on.
--- NOTE | 2016-08-08 23:24 | NUR ---
CONSULT PAGE/SWALLOW EVAL SWALLOW EVAL CONSULT PAGED, LEFT VOICE MESSAGE.
[2016-08-09] VITALS (37 sets, daily range): BP systolic 89–137; BP diastolic 36–96; PULSE 64–88; RESP 11–22; TEMP 96.7–98.1; O2SAT 91–100
[2016-08-09] MEDS: MORPHINE 2 MG/ML INJ. SYRINGE IVP PRN ×4 (00:15→20:44)
--- NOTE | 2016-08-09 02:12 | NUR ---
suctioned pt suctioned pt, red tinged sputum noted. suctioned pt's mouth. all needs being met. RT at bedside now.
[2016-08-09] MEDS: IPRATROPIUM/ALBUTEROL SULFATE 3 ML AMPUL.NEB INH SCH ×4 (02:15→19:44)
--- NOTE | 2016-08-09 02:16 | NUR ---
change in vent setting RT changed FIO2 to 40%.
[2016-08-09] MEDS: LORazepam 2 MG/ML VIAL IVP PRN ×3 (03:16→20:57)
[2016-08-09] MEDS: D5LR 1,000 ML IV SCH ×3 (05:07→20:59)
--- NOTE | 2016-08-09 06:45 | NUR ---
closing notes pt resting, signaled she was hot, fan on for pt's comfort. no s/s of respiratory distress noted. all needs met throughout shift. will endorse care to oncoming nurse. bed in low position, call light within reach. bed alarm on.
[2016-08-09 06:51] LABS: ANION GAP -1 (5-15); BASOPHILS % (AUTO) 0.5 % (0.0-2.0); CALCIUM 8.9 mg/dL (8.4-11.0); CHLORIDE 105 mmol/L (98-107); CREATININE 0.94 mg/dL (0.55-1.30); EOSINOPHILS # (AUTO) 0.3 K/uL (0.0-0.4); EOSINOPHILS % (AUTO) 3.5 % (0.0-4.0); GLUCOSE 158 mg/dL (70-99); HEMATOCRIT 28.4 % (36-48); HEMOGLOBIN 8.7 g/dL (12.0-16.0); LYMPHOCYTES # (AUTO) 0.8 K/uL (1.0-5.5); LYMPHOCYTES % (AUTO) 8.8 % (20.5-51.5); MEAN CORPUSCULAR HEMOGLOBIN 27 pg (27-31); MEAN CORPUSCULAR HGB CONC 31 % (32-36); MEAN CORPUSCULAR VOLUME 87 fL (79.0-98.0); MONOCYTES # (AUTO) 0.4 K/uL (0.0-1.0); MONOCYTES % (AUTO) 4.9 % (1.7-9.3); NEUTROPHILS # (AUTO) 7.2 K/uL (1.8-7.7); NEUTROPHILS % (AUTO) 82.3 % (40.0-70.0); PLATELET COUNT (AUTO) 365 K/uL (130-430); POTASSIUM 4.1 mmol/L (3.5-5.1); RED BLOOD CELL COUNT(AUTO) 3.25 MIL/uL (4.2-6.2); RED CELL DISTRIBUTION WIDTH 18.2 % (9.0-15.0); SODIUM SERUM 140 mmol/L (136-145); UREA NITROGEN, BLOOD 18 mg/dL (8-21); WHITE BLOOD COUNT (AUTO) 8.7 K/uL (4.8-10.8)
[2016-08-09 07:41] LABS: BLOOD GAS PH 7.378 (7.350-7.450)
[2016-08-09 07:42] LABS: ABG TOTAL HEMOGLOBIN 9.7 G/dL (12.0-18.0); BLOOD GAS BASE EXCESS 7.3 mmol/L (-3.0-3.0); BLOOD GAS COHb% 0.9 % (0.5-1.5); BLOOD GAS HHB 3.6 % (0.0-6.0); BLOOD O2Hb% 94.9 % (94.0-97.0)
--- NOTE | 2016-08-09 07:50 | NUR ---
AM NOTES IN BED AWAKE, DENIES ANY PAIN AT THIS TIME. TRACH CONNECTED TO VENT AC-10, TV-500, FIO2-40%, PEEP-5. V/S STABLE. IVF INFUSING WELL ON THE RIGHT ARM PICC LINE. BRAGA CATH DRAINING MIKE URINE. ON FLEXISEAL. KEEP ON CONTACT ISOLATION FOR MRSA NARES. SAFETY PRECAUTION OBSERVED. WILL MONITOR.
[2016-08-09] MEDS: MULTIVITAMINS,THERAPEUTIC 5 ML UDC GT SCH ×2 (08:23→20:44)
[2016-08-09] MEDS: FLUoxetine HCL 20 MG CAPSULE (PROzac) PO SCH (08:24)
[2016-08-09] MEDS: POTASSIUM CHLORIDE 20 MEQ/PKT PACKET PO SCH ×3 (08:24→20:44)
[2016-08-09] MEDS: ATORVASTATIN 20 MG TABLET PO SCH (08:24)
[2016-08-09] MEDS: CYANOCOBALAMIN 1000 mCg TABLET PO SCH (08:25)
[2016-08-09] MEDS: PANTOPRAZOLE SODIUM 40 MG/VIAL (PROTONIX) IVP SCH ×2 (08:34→20:43)
[2016-08-09] MEDS: MUPIROCIN 2% TOPICAL OINTMENT 22 GM TP SCH ×2 (08:34→20:43)
[2016-08-09] MEDS: VANCOMYCIN HCL 1,000 MG in NS 250 ML IV SCH ×2 (08:34→20:56)
--- NOTE | 2016-08-09 10:00 | NUR ---
NOTES AWAKE, TURNED AND REPOSITIONED. CHG BATH, MOUTH CARE DONE. DENIES ANY PAIN OR DISCOMFORT AT THIS TIME. NO ACUTE DISTRESS NOTED.
--- NOTE | 2016-08-09 14:40 | NUR ---
MD ROUNDS SEEN BY DR. GERMAIN. ORDERED TO TRANSFUSE 1 UNIT OF PRBC AND INCREASE AC TO 14 AND DO ABG AFTER ONE HOUR.
--- NOTE | 2016-08-09 15:12 | NUR ---
pt awake, uneasy, grimacing and trying to tell something. ask pt if she is in pain, pt nodded. will medicate as ordered.
--- NOTE | 2016-08-09 15:13 | NUR ---
Nutrition F/U Admitting Diagnosis Acute respiratory failure Past Medical History COPD, chronic respiratory failure, HLD, DM, CHF per MD notes Pt also found w/ acute hypercapnic respiratory failure, enterocutaneous fistula, mild protein malnutrition, morbid obesity Pertinent Medications Lipitor, protonix IV, morphine, zofran, SSI, D50%-syringe, piperacillin/tazobactam IV, KCl packet, ativan, vancomycin/NaCl IV, MVI, ferric Na gluconate complex, vancomycin per pharmacy, lovenox, furosemide/dextrose drip Current Diet Order NPO (x1 day) Height (Feet) 5 feet Height (Inches) 5.00 inches Weight (Pounds) (modified) 306 pounds (admission) 07/30/16 bedscale: 317 lbs/144 kg (unsure of accuracy) 08/02/16 bedscale: 314 lb/143 kg 08/09/16 bedscale: 309 lb/141 kg Weight (Calculated Kilograms) 138.142983 kilograms Patient Weight 138.799 kg Body Mass Index 50.92 kg/m2 (obesity class III) [place]/Adjusted Body Weight IBW: 125 lb, 57 kg. 244% of IBW. Adj IBW (obesity): 244 lb, 111 kg Estimated Needs (modified) 9242-8146 kcal/day (11-14 kcal/kg CBW for vent support) Grams of Protein per Day 114-143 gm/day (2-2.5 gm/kg IBW for COPD and vent support) Fluid Intake Goal Per MD for Hx of CHF Pertinent Labs 08/09/16: WBC 8.7 WNL (improved), Hgb 8.7 L, Hct 28.4 L, BUN 18 WNL (improved), BG 158 H, POC BG 141 H 08/08/16: BNP 1560 H 08/02/16: ALB 2.2 L 07/28/16: Iron 23 L, TIBC 238 L, HgbA1c 7.4 H 07/27/16: Lactic acid 2.5 H Other Subjective Data Nutrition consult (low Randall) 08/08/16 2310 Physical Assessment: Pt seen resting in bed, +trach to mechanical ventilator. No caregivers present at bedside. Pt appeared overnourished for height. Abdominal distention noted. Bedscale reads 309 lb/141 kg. GI Integrity: Per EMR, abdomen is soft and distended with active bowel sounds. Pt has rectal tube, seen with little output. Tube feeding: Held at this time. Integumentary: Per EMR, Randall scale: 13, Redness to anterior chest, lower abdomen, perineal area, and coccyx. Left proximal abdomen rash. Wound Re-Eval (08/05/16): Skin is fair (-). Buttocks erythema from IAD, breast and abdominal folds redness. Plans/Procedures: Pt is s/p x1 day tracheostomy. Pending swallow eval. Pt is not currently meeting optimal nutritional needs. Pt is not appropriate for nutrition education. Problem, Etiology, Signs/Symptoms Increased nutritional requirements related to acute state and vent support as evidenced by elevated WBC and lactic acid lab draws, and estimated nutritional requirements. Expected Outcomes or Goals - Monitor tolerance to EN w/ goal of pt meeting at least 50% of estimated nutritional needs, labs trending WNL, normal GI function, and skin integrity/wt maintenance Dietitian Recommendations (modified) * Re-initiate enteral nutrition if/when medically appropriate * Consider Diabetisource AC at 50 ml/hr, ProSource TID, Free Water Flush: 100 ml q6hr. This provides: 1620 kcal/day, 117 gm protein/day, 1469 ml free water/day. This meets: 106% of the lower end of estimated energy needs and 103% estimated protein needs per day. Follow Up High Risk: F/U in 2-3 days Addendum: 08/09/16 at [address] CORRECTIONS: Dietitian Recommendations (modified) * Re-initiate enteral nutrition if/when medically appropriate * Consider Diabetisource AC at 50 ml/hr, ProSource TID, Free Water Flush: 100 ml q6hr This provides: 1620 kcal/day, 117 gm protein/day, 1469 ml free water/day This meets: 106% of the lower end of estimated energy needs and 103% estimated protein needs per day * Consider ST rec after swallow eval RD reviewed/approved digital media intern's note. LP, RD
--- NOTE | 2016-08-09 16:50 | NUR ---
S.T. SWALLOW EVAL (BLUE DYE SWALLOW TEST) PERFORMED. R.T. PRESENT HELP W/ EVAL. PT'S DTR PRESENT. PT PRESENTS W/MOD-SEV OROPHARYNGEAL DYSPHAGIA W/ DELAYED BOLUS TRANSFER, DELAYED SWALLOW, CHOKING ADN GAGGING ON TSP NECTAR THICK LIQUIDS. WET VOCAL QUALITY AFTER SWALLOW. EVEN THOUGH NO BLUE DYE WAS SUCTIONED, PT PRESENTS W/ HIGH RISK FOR ASPIRATION. REC: NPO. DR. GERMAIN ORDERED RE-EVAL TOMORROW. NURSE DEEDEE LAU NOTIFIED. [id number] CM G8997 CM G8998 CM NOMS LEVEL 2
[2016-08-09 17:16] LABS: BLOOD GAS PH 7.389 (7.350-7.450)
[2016-08-09 17:17] LABS: ABG TOTAL HEMOGLOBIN 9.6 G/dL (12.0-18.0); BLOOD GAS BASE EXCESS 5.9 mmol/L (-3.0-3.0); BLOOD GAS HHB 7.4 % (0.0-6.0); BLOOD O2Hb% 91.1 % (94.0-97.0)
--- NOTE | 2016-08-09 18:00 | NUR ---
PT AWAKE AND ANXIOUS AT THIS TIME. ATIVAN GIVEN.
--- NOTE | 2016-08-09 18:25 | NUR ---
BLOOD TRANSFUSION OF PRBC STARTED AT THIS TIME.
--- NOTE | 2016-08-09 20:10 | NUR ---
PM ASSESSMENT -Pt is resting in bed. No s/s any pain,sob,or any acute distress noted. PRBC is still infusing. Vitals signs stable. PICC Line BLAKE-patent. IVF D5LR @ 80ml/hr. Keep HOB greater than 30 degree entire time. MRSA nares contact isolation. Lung sounds clear throughout all lobes. NPO status, will have swallow evaluation scheduled for tomorrow. Bill pedis pulses present,but weak; Emigdio LE edema pitting +1 noted. Turned and repositioned and q 2 hrs prn. Abdomen soft but distended, BS present. Pt is with trachea with mech vent setting, XY=194;Fio2=30%, peep=5, AC=14, y4kjf=39-23%. SCD in place emigdio lower extremities; RT upper fistula drains yellow drainage with a bag in place. All safety measures in place. Flexiseal in place drains dark green scant amount of stool. Ricardo cath in place w/ gravity drains cloudy dark jessenia urine output. Call light w/in reach. Continue to monitor pt.
--- NOTE | 2016-08-09 20:44 | NUR ---
PAIN MEDICATION ADMINISTERED -pt is c/o generalized pain, gave Morphine Sulfate 2mg IVP. See EMAR for pain reassessment. Call light w/in reach. Continue to monitor pt. Blood Transfusion is still infusing. No s/s any rxn or complication noted.
--- NOTE | 2016-08-09 20:57 | NUR ---
AGITATION -GAVE ATIVAN 0.5MG IVP. CALL LIGHT W/IN REACH. ALL SAFETY MEASURES IN PLACE. CONTINUE TO MONITOR PT.
[2016-08-09] MEDS: INSULIN REGULAR, HUMAN 100 UNITS/ML, 10 ML VIAL (novoLIN R) SUBCUT PRN (20:58)
--- NOTE | 2016-08-09 21:00 | NUR ---
1 UNIT OF PRBC COMPLETED -NO S/S ANY RXN OR COMPLICATION NOTED. VITAL SIGNS 97.6, 129/63, 74,18, [id number]=95%. CALL LIGHT W/IN REACH. CONTINUE TO MONITOR PT.
--- NOTE | 2016-08-09 22:08 | NUR ---
NOTES; -Pt is resting. No s/s any pain,sob,or any acute distress noted. Pt is with trachea with mech vent setting, IY=649;Fio2=30%, peep=5, AC=14, [id number]=74%. SCD in place irvin lower extremities; All safety measures in place. Flexiseal in place drains dark green scant amount of stool. Ricardo cath in place w/ gravity drains cloudy dark jessenia urine output. Call light w/in reach. Continue to monitor pt.
[2016-08-10] VITALS (36 sets, daily range): BP systolic 106–141; BP diastolic 44–87; PULSE 60–93; RESP 12–27; TEMP 96.9–97.9; O2SAT 91–100
--- NOTE | 2016-08-10 00:10 | NUR ---
ROUNDS; -Pt is resting in bed. No s/s any pain,sob,or any acute distress noted. IVF D5LR @ 80ml/hr. Keep HOB greater than 30 degree entire time. MRSA nares contact isolation. Pt is with trachea with mech vent setting, YQ=259;Fio2=30%, peep=5, AC=14, t5eac=35-94%. SCD in place irvin lower extremities. All safety measures in place. Flexiseal in place drains dark green scant amount of stool. Ricardo cath in place w/ gravity drains cloudy dark jessenia urine output. Call light w/in reach. Continue to monitor pt.
[2016-08-10] MEDS: MORPHINE 2 MG/ML INJ. SYRINGE IVP PRN ×2 (00:48→06:17)
--- NOTE | 2016-08-10 00:48 | NUR ---
PAIN MEDICATION ADMINISTERED -pt is c/o generalized pain, gave Morphine Sulfate 2mg IVP. See EMAR for pain reassessment. Call light w/in reach. Continue to monitor pt.
[2016-08-10] MEDS: IPRATROPIUM/ALBUTEROL SULFATE 3 ML AMPUL.NEB INH SCH ×4 (01:00→19:46)
[2016-08-10] MEDS: LORazepam 2 MG/ML VIAL IVP PRN ×2 (02:01→07:01)
--- NOTE | 2016-08-10 02:01 | NUR ---
AGITATION -GAVE ATIVAN 0.5MG IVP. CALL LIGHT W/IN REACH. ALL SAFETY MEASURES IN PLACE. CONTINUE TO MONITOR PT.
--- NOTE | 2016-08-10 02:59 | NUR ---
NOTES; -Pt is resting in bed. No s/s any pain,sob,or any acute distress noted. IVF D5LR @ 80ml/hr. Keep HOB greater than 30 degree entire time. cath in place w/ gravity drains cloudy dark jessenia urine output. Call light w/in reach. Continue to monitor pt.
[2016-08-10] MEDS: INSULIN REGULAR, HUMAN 100 UNITS/ML, 10 ML VIAL (novoLIN R) SUBCUT PRN ×3 (06:14→20:38)
--- NOTE | 2016-08-10 06:17 | NUR ---
PAIN MEDICATION ADMINISTERED -pt is c/o generalized pain, gave Morphine Sulfate 2mg IVP after changed new linen sheet. Now, pt is cleaned and dry. See EMAR for pain reassessment. Call light w/in reach. Continue to monitor pt.
[2016-08-10 06:44] LABS: BASOPHILS % (AUTO) 0.5 % (0.0-2.0); EOSINOPHILS # (AUTO) 0.3 K/uL (0.0-0.4); EOSINOPHILS % (AUTO) 3.9 % (0.0-4.0); HEMATOCRIT 29.1 % (36-48); HEMOGLOBIN 9.1 g/dL (12.0-16.0); LYMPHOCYTES # (AUTO) 0.8 K/uL (1.0-5.5); LYMPHOCYTES % (AUTO) 9.8 % (20.5-51.5); MEAN CORPUSCULAR HEMOGLOBIN 27 pg (27-31); MEAN CORPUSCULAR HGB CONC 31 % (32-36); MEAN CORPUSCULAR VOLUME 87 fL (79.0-98.0); MONOCYTES # (AUTO) 0.4 K/uL (0.0-1.0); MONOCYTES % (AUTO) 4.9 % (1.7-9.3); NEUTROPHILS # (AUTO) 6.9 K/uL (1.8-7.7); NEUTROPHILS % (AUTO) 80.9 % (40.0-70.0); PLATELET COUNT (AUTO) 357 K/uL (130-430); RED BLOOD CELL COUNT(AUTO) 3.35 MIL/uL (4.2-6.2); RED CELL DISTRIBUTION WIDTH 17.9 % (9.0-15.0); WHITE BLOOD COUNT (AUTO) 8.4 K/uL (4.8-10.8)
[2016-08-10 06:49] LABS: ANION GAP 3 (5-15); CALCIUM 8.8 mg/dL (8.4-11.0); CHLORIDE 104 mmol/L (98-107); CREATININE 0.94 mg/dL (0.55-1.30); GLUCOSE 154 mg/dL (70-99); POTASSIUM 3.8 mmol/L (3.5-5.1); SODIUM SERUM 140 mmol/L (136-145); UREA NITROGEN, BLOOD 14 mg/dL (8-21)
--- NOTE | 2016-08-10 06:51 | NUR ---
CLOSING NOTES; -Pt is resting in bed. No s/s any pain,sob,or any acute distress noted. PICC Line BLAKE-patent. IVF D5LR @ 80ml/hr. Keep HOB greater than 30 degree entire time. MRSA nares contact isolation. Pt is with trachea with mech vent setting, SY=697;Fio2=30%, peep=5, AC=14, l0szt=60%. SCD in place irvin lower extremities; RT upper fistula drains yellow drainage with a bag in place. All safety measures in place. Flexiseal in place. Ricardo cath in place w/ gravity drains cloudy dark jessenia urine output. Call light w/in reach. Continue to monitor pt.
--- NOTE | 2016-08-10 07:00 | NUR ---
NOTES; TRACHEA WITH PINK DRAINAGE AFTER SUCTIONED PT
--- NOTE | 2016-08-10 07:01 | NUR ---
AGITATION -GAVE ATIVAN 0.5MG IVP. CALL LIGHT W/IN REACH. ALL SAFETY MEASURES IN PLACE. CONTINUE TO MONITOR PT.
--- NOTE | 2016-08-10 07:20 | NUR ---
am notes: report given by amor night nurse at bedside. contact isolation precaution . patient on trach vent. no distress. continue to monitor.
--- NOTE | 2016-08-10 07:41 | NUR ---
rounds: patient sleeping during rounds. rt at bedside. patient on trach vent,see meditech for settings. fio2=30%.good saturation. no distress. contact isolation precaution rendered. big lady. on air loss mattress bed. with ivf on going at right upper arm piccline in placed. with duran draining to yellow urine. flexiseal on,no output yet.bilateral scd,s on lower extremities.continue to monitor.
[2016-08-10] MEDS: VANCOMYCIN HCL 1,000 MG in NS 250 ML IV SCH ×2 (08:19→20:33)
[2016-08-10] MEDS: PANTOPRAZOLE SODIUM 40 MG/VIAL (PROTONIX) IVP SCH ×2 (08:19→20:33)
[2016-08-10] MEDS: MUPIROCIN 2% TOPICAL OINTMENT 22 GM TP SCH ×2 (08:20→20:34)
[2016-08-10] MEDS: ATORVASTATIN 20 MG TABLET PO SCH (09:00)
[2016-08-10] MEDS: POTASSIUM CHLORIDE 20 MEQ/PKT PACKET PO SCH ×3 (09:00→20:34)
[2016-08-10] MEDS: CYANOCOBALAMIN 1000 mCg TABLET PO SCH (09:00)
[2016-08-10] MEDS: FLUoxetine HCL 20 MG CAPSULE (PROzac) PO SCH (09:00)
[2016-08-10] MEDS: MULTIVITAMINS,THERAPEUTIC 5 ML UDC GT SCH ×2 (09:00→20:32)
[2016-08-10] MEDS ORDERED: FUROSEMIDE 40 MG/4 ML VIAL IVP ONE (09:45)
--- NOTE | 2016-08-10 09:45 | NUR ---
RT NOTES Vent settings to SIMV [address] Andrew's order. Pt. is alert, educated on vent settings and deep breathing. No adverse reactions noted. Pt. was re-assessed after 5 minutes, H.R 79 R.R 26-27. No respiratory distress noted. Will monitor pt.
--- NOTE | 2016-08-10 09:45 | NUR ---
vent settings: ac to simv =10 ps=10 peep=5 by rt as ordered by pulmo.
[2016-08-10] MEDS ORDERED: ENOXAPARIN SODIUM 40 MG/0.4 ML SYRINGE SUBCUT ONE (10:00)
--- NOTE | 2016-08-10 10:45 | NUR ---
vent settings: patient complaining about her breathing,respiration=30,rt called and changed vent settings to ac=12,fio2=30%.will rechecked again later if tolerated vent settings.
--- NOTE | 2016-08-10 11:05 | NUR ---
accucheck notes: blood sugar taken,no insulin coverage per sliding scale.
[2016-08-10] MEDS ORDERED: LOSARTAN POTASSIUM 25 MG TABLET PO ONE (11:30)
[2016-08-10] MEDS ORDERED: CARVEDILOL 3.125 MG TABLET (COREG) PO ONE (11:30)
--- NOTE | 2016-08-10 11:58 | NUR ---
SPEECH THERAPIST: CALLED LETICIA SPEECH THERAPIST BY NILE AND LEFT MESSAGE C/O p#[phone].
--- NOTE | 2016-08-10 11:59 | NUR ---
RN NOTES SPEECH THERAPIST CALLED FOR SWALLOW RE-EVAL. FOLLOW UP, LEFT MESSAGE.
--- NOTE | 2016-08-10 12:05 | NUR ---
RT NOTES Vent settings to AC [address] Mena's order.
[2016-08-10 12:16] LABS: ABG TOTAL HEMOGLOBIN 10.3 G/dL (12.0-18.0); BLOOD GAS BASE EXCESS 8.2 mmol/L (-3.0-3.0); BLOOD GAS COHb% 0.8 % (0.5-1.5); BLOOD GAS HHB 7.9 % (0.0-6.0); BLOOD GAS PH 7.399 (7.350-7.450); BLOOD O2Hb% 90.7 % (94.0-97.0)
--- NOTE | 2016-08-10 13:10 | NUR ---
rounds; resting. tolerated vent settings ac=14,fio2=30%. good saturation.
[2016-08-10] MEDS: D5LR 1,000 ML IV SCH (14:16)
--- NOTE | 2016-08-10 15:15 | NUR ---
RN NOTES SWALLOW EVAL DONE BY LETICIA SPEECH THERAPIST.
--- NOTE | 2016-08-10 15:23 | NUR ---
S.T. SWALLOW EVAL (BLUE DYE TEST) COMPLETED PER DR. GERMAIN'S ORDER. CHARGE NURSE NILE PRESENT TO HELP W/ SUCTIONING AND CUFF DEFLATION. PT PRESENTS W/ ML ORAL AND MOD PHARYNGEAL DYSPHAGIA CHARACTERIZED BY ML DELAYED BOLUS TRANSFER AT TIMES, COORDINATION AND COUGHING ON THIN LIQUIDS SWALLOW. NO BLUE DYE SUCTIONED, BUT ASPIRATION RISK PRESENT FOR THIN LIQUIDS. PT SHOWED IMPROVEMENT FROM YESTERDAY. REC: PUREE W/ NECTAR THICK LIQUIDS. SUCTION BEFORE AND AFTER MEALS. DEFLATE CUFF FOR EATING. NURSES GERHARD AND NILE NOTIFIED. G8996 CK G8997 CK G8998 CK NOMS LEVEL 4
--- NOTE | 2016-08-10 16:00 | NUR ---
rounds: patient's daughter at bedside. corrine just finished swallowing evaluation and pt passed.speech thrapist recommended puree,with thickened liquids. paged for orders.
--- NOTE | 2016-08-10 17:23 | NUR ---
accucheck notes: blood sugar taken,with insulin coverage given per sliding scale.
--- NOTE | 2016-08-10 18:30 | NUR ---
puree: with orders deflate trach balloon during meals.called rt and deflated the balloon. placed patient on high garcia's position.suctioned secretions prior to feeding.took some 8 small spoonfuls of puree diet. rt inflated the balloon. suctioned orally and tracheally. obtained moderate amount greene color discharges. stable for now. patient went back to sleep.
--- NOTE | 2016-08-10 18:50 | NUR ---
closing notes: stable. no distress and no aspiration noted. tolerated ac=14,fio2=30%.right upper arm piccline in placed.mid abdomen fistula with colostomy bag in placed.with duran in situ. continue to monitor.will endorsed to incoming night nurse patient in stable condition.
--- NOTE | 2016-08-10 19:20 | NUR ---
PM ASSESSMENT: Patient alert and oriented x 2. Patient non-verbal due to patient on tracheostomy attached to vent with vent settings AC 14, TV 500, FiO2 30%, Peep 5. Afebrile. Sinus rhythm on the monitor. Breathing even and unlabored. PICC line on the right upper arm, patent and intact. No signs of redness or swelling on the PICC site. D5 LR running at 80ml/hr. Fistula on the mid abdomen noted with brown drainage. Ricardo cath draining jessenia colored urine. Bilateral SCDs in place. Flexiseal in place. Multiple redness noted. HOB on semi-fowlers with 2 side rails up and bed in lowest level. Bed brakes locked. Placed call light within reach. All needs met. Will continue to monitor.
--- NOTE | 2016-08-10 20:15 | NUR ---
DR NIEVES: Dr. Nieves was paged to inform her that vent settings were changed by Dr. Mena after ABG results were called to Dr. Mena. Dr. Nieves agreed.
[2016-08-10] MEDS: CARVEDILOL 3.125 MG TABLET (COREG) PO SCH (20:34)
--- NOTE | 2016-08-10 21:00 | NUR ---
BLOOD SUGAR: Accucheck done with 211 blood sugar. Regular insulin coverage given.
[2016-08-11] VITALS (38 sets, daily range): BP systolic 85–140; BP diastolic 42–81; PULSE 54–108; RESP 12–25; TEMP 97.4–98.3; O2SAT 90–100
[2016-08-11] MEDS: IPRATROPIUM/ALBUTEROL SULFATE 3 ML AMPUL.NEB INH SCH ×4 (01:21→20:35)
[2016-08-11] MEDS: MORPHINE 2 MG/ML INJ. SYRINGE IVP PRN ×4 (01:36→23:52)
--- NOTE | 2016-08-11 01:50 | NUR ---
PAIN: Patient banged call light on the side rails calling for attention. When asked if she is in pain, patient nodded head. No acute distress or sOB noted at this time. Due meds given. Will continue to monitor.
[2016-08-11] MEDS: IPRATROPIUM/ALBUTEROL SULFATE 3 ML AMPUL.NEB INH PRN (02:35)
--- NOTE | 2016-08-11 03:22 | NUR ---
PT UPDATE: Patient sleeping comfortably at this time. No acute distress or SOB noted. Vital signs stable. Refused oral care earlier even after explaining importance of doing oral care.
[2016-08-11] MEDS: D5LR 1,000 ML IV SCH (03:31)
--- NOTE | 2016-08-11 05:30 | NUR ---
LAB DRAW Patient refused lab draw. Explained importance of blood to be drawn. Patient still refused. Per [employer] assistant, she will send somebody else to take blood.
[2016-08-11] MEDS: INSULIN REGULAR, HUMAN 100 UNITS/ML, 10 ML VIAL (novoLIN R) SUBCUT PRN ×3 (06:32→20:57)
[2016-08-11 08:21] LABS: BLOOD GAS PH 7.462 (7.350-7.450)
[2016-08-11] MEDS: PANTOPRAZOLE SODIUM 40 MG/VIAL (PROTONIX) IVP SCH (08:33)
[2016-08-11] MEDS: ONDANSETRON HCL 4 MG/2 ML VIAL IVP PRN ×2 (08:34→16:03)
[2016-08-11] MEDS: LOSARTAN POTASSIUM 25 MG TABLET PO SCH (08:37)
[2016-08-11] MEDS: POTASSIUM CHLORIDE 20 MEQ/PKT PACKET PO SCH ×3 (08:37→20:21)
[2016-08-11] MEDS: ATORVASTATIN 20 MG TABLET PO SCH (08:37)
[2016-08-11] MEDS: MULTIVITAMINS,THERAPEUTIC 5 ML UDC GT SCH ×2 (08:37→20:21)
[2016-08-11] MEDS: FLUoxetine HCL 20 MG CAPSULE (PROzac) PO SCH (08:38)
[2016-08-11] MEDS: CARVEDILOL 3.125 MG TABLET (COREG) PO SCH ×2 (08:38→20:24)
[2016-08-11 09:22] LABS: BASOPHILS % (AUTO) 0.5 % (0.0-2.0); EOSINOPHILS # (AUTO) 0.3 K/uL (0.0-0.4); HEMATOCRIT 29.5 % (36-48); HEMOGLOBIN 9.2 g/dL (12.0-16.0); LYMPHOCYTES # (AUTO) 1.1 K/uL (1.0-5.5); MEAN CORPUSCULAR HEMOGLOBIN 27 pg (27-31); MEAN CORPUSCULAR HGB CONC 31 % (32-36); MEAN CORPUSCULAR VOLUME 86 fL (79.0-98.0); MONOCYTES # (AUTO) 0.5 K/uL (0.0-1.0); MONOCYTES % (AUTO) 5.8 % (1.7-9.3); NEUTROPHILS # (AUTO) 6.2 K/uL (1.8-7.7); NEUTROPHILS % (AUTO) 75.7 % (40.0-70.0); PLATELET COUNT (AUTO) 376 K/uL (130-430); RED BLOOD CELL COUNT(AUTO) 3.42 MIL/uL (4.2-6.2); RED CELL DISTRIBUTION WIDTH 17.7 % (9.0-15.0); WHITE BLOOD COUNT (AUTO) 8.1 K/uL (4.8-10.8)
[2016-08-11 09:37] LABS: ANION GAP 3 (5-15); CALCIUM 9.3 mg/dL (8.4-11.0); CHLORIDE 104 mmol/L (98-107); CHOLESTEROL 138 mg/dL (<200); GLUCOSE 156 mg/dL (70-99); HDL CHOLESTEROL 38 mg/dL (>55); LDL CHOLESTEROL 73 mg/dL (<100); PHOSPHORUS 3.2 mg/dL (2.7-4.5); POTASSIUM 3.7 mmol/L (3.5-5.1); SODIUM SERUM 141 mmol/L (136-145); TRIGLYCERIDES 133 mg/dL (30-150); UREA NITROGEN, BLOOD 12 mg/dL (8-21)
[2016-08-11] MEDS: CYANOCOBALAMIN 1000 mCg TABLET PO SCH (10:08)
[2016-08-11] MEDS: MUPIROCIN 2% TOPICAL OINTMENT 22 GM TP SCH ×2 (10:09→20:23)
[2016-08-11] MEDS: VANCOMYCIN HCL 1,000 MG in NS 250 ML IV SCH ×2 (10:09→20:23)
[2016-08-11] MEDS: ENOXAPARIN SODIUM 40 MG/0.4 ML SYRINGE SUBCUT SCH (10:11)
--- NOTE | 2016-08-11 10:51 | NUR ---
SON IN LAW AT BEDSIDE, REPORTS THAT PT WROTYE ON A PIECE OF PAPER THAT SHE'S COMPLAINING OF VAGINAL ITCHING. MAGALY LAID.
[2016-08-11] MEDS ORDERED: FUROSEMIDE 40 MG/4 ML VIAL IVP ONE (13:15)
[2016-08-11] MEDS ORDERED: FLUCONAZOLE 200 MG TABLET (DIFLUCAN) PO ONE (13:15)
--- NOTE | 2016-08-11 15:13 | NUR ---
Nutrition F/U Admitting Diagnosis Acute respiratory failure Past Medical History COPD, chronic respiratory failure, HLD, DM, CHF per MD notes Pt also found w/ acute hypercapnic respiratory failure, enterocutaneous fistula, mild protein malnutrition, morbid obesity Pertinent Medications Lipitor, protonix IV, morphine, zofran, SSI, D50%-syringe, piperacillin/tazobactam IV, KCl packet, ativan, vancomycin/NaCl IV, MVI, ferric Na gluconate complex, vancomycin per pharmacy, lovenox, furosemide/dextrose drip Current Diet Order NPO (x1 day) Height (Feet) 5 feet Height (Inches) 5.00 inches Weight (Pounds) (modified) 306 pounds (admission) 07/30/16 bedscale: 317 lbs/144 kg (unsure of accuracy) 08/02/16 bedscale: 314 lb/143 kg 08/09/16 bedscale: 309 lb/141 kg Weight (Calculated Kilograms) 138.669988 kilograms Patient Weight 138.799 kg Body Mass Index 50.92 kg/m2 (obesity class III) [place]/Adjusted Body Weight IBW: 125 lb, 57 kg. 244% of IBW. Adj IBW (obesity): 244 lb, 111 kg Estimated Needs (modified) 2974-2125 kcal/day (11-14 kcal/kg CBW for vent support) Grams of Protein per Day 114-143 gm/day (2-2.5 gm/kg IBW for COPD and vent support) Fluid Intake Goal Per MD for Hx of CHF Pertinent Labs 08/09/16: WBC 8.7 WNL (improved), Hgb 8.7 L, Hct 28.4 L, BUN 18 WNL (improved), BG 158 H, POC BG 141 H 08/08/16: BNP 1560 H 08/02/16: ALB 2.2 L 07/28/16: Iron 23 L, TIBC 238 L, HgbA1c 7.4 H 07/27/16: Lactic acid 2.5 H Other Subjective Data Nutrition consult (low Randall) 08/08/16 2310 Physical Assessment: Pt seen resting in bed, +trach to mechanical ventilator. No caregivers present at bedside. Pt appeared overnourished for height. Abdominal distention noted. Bedscale reads 309 lb/141 kg. GI Integrity: Per EMR, abdomen is soft and distended with active bowel sounds. Pt has rectal tube, seen with little output. Tube feeding: Held at this time. Integumentary: Per EMR, Randall scale: 13, Redness to anterior chest, lower abdomen, perineal area, and coccyx. Left proximal abdomen rash. Wound Re-Eval (08/05/16): Skin is fair (-). Buttocks erythema from IAD, breast and abdominal folds redness. Plans/Procedures: Pt is s/p x1 day tracheostomy. Pending swallow eval. Pt is not currently meeting optimal nutritional needs. Pt is not appropriate for nutrition education. Problem, Etiology, Signs/Symptoms Increased nutritional requirements related to acute state and vent support as evidenced by elevated WBC and lactic acid lab draws, and estimated nutritional requirements. Expected Outcomes or Goals - Monitor tolerance to EN w/ goal of pt meeting at least 50% of estimated nutritional needs, labs trending WNL, normal GI function, and skin integrity/wt maintenance Dietitian Recommendations (modified) * Re-initiate enteral nutrition if/when medically appropriate * Consider Diabetisource AC at 50 ml/hr, ProSource TID, Free Water Flush: 100 ml q6hr This provides: 1620 kcal/day, 117 gm protein/day, 1469 ml free water/day This meets: 106% of the lower end of estimated energy needs and 103% estimated protein needs per day * Consider ST rec after swallow eval Follow Up High Risk: F/U in 2-3 days Addendum: 08/11/16 at 1517 by Pavan ALRA PLEASE DISREGARD THIS NOTE. NOTE WAS CREATED BY ERROR. JANE GIBBS
--- NOTE | 2016-08-11 16:20 | NUR ---
DTR AT BEDSIDE, QUESTIONS ANSWERED, PLAN OF CARE DISCUSSED. PT IN NAD. RESP EVEN AND UNLABORED, TOLERATING VENT SETTINGS WELL. BRAGA CATH DRAINING WELL. WILL CONT TO MONITOR.
--- NOTE | 2016-08-11 16:40 | NUR ---
Nutrition F/U Admitting Diagnosis Acute respiratory failure Past Medical History COPD, chronic respiratory failure, HLD, DM, CHF per MD notes Pt also found w/ acute hypercapnic respiratory failure, enterocutaneous fistula, mild protein malnutrition, morbid obesity Pertinent Medications Lipitor, protonix IV, morphine, zofran, SSI, D50%-syringe, KCl packet, ativan, vancomycin/NaCl IV, MVI, vancomycin per pharmacy, lovenox, cozaar, coreg, vitamin B12 Current Diet Order Pureed, standard carb-60 gm, nectar thick liquids Height (Feet) 5 feet Height (Inches) 5.00 inches Weight (Pounds) (modified) 306 pounds (admission) 07/30/16 bedscale: 317 lbs/144 kg (unsure of accuracy) 08/02/16 bedscale: 314 lb/143 kg 08/09/16 bedscale: 309 lb/141 kg 08/11/16 bedscale: 311 lb/141 kg Weight (Calculated Kilograms) 138.068416 kilograms Patient Weight 138.799 kg Body Mass Index 50.92 kg/m2 (obesity class III) [place]/Adjusted Body Weight IBW: 125 lb, 57 kg. 244% of IBW. Adj IBW (obesity): 244 lb, 111 kg Estimated Needs (modified) 1953 kcal/day (RMR, modifed [place] equation) Grams of Protein per Day 114-143 gm/day (2-2.5 gm/kg IBW for COPD and vent support) Fluid Intake Goal Per MD for Hx of CHF Pertinent Labs 08/11/16: Hgb 9.2 L, Hct 29.5 L, BG 156 H, POC BG 159 H, BNP 2370 H, HDL chol 38 L, ammonia <5 L 08/02/16: ALB 2.2 L 07/28/16: Iron 23 L, TIBC 238 L, HgbA1c 7.4 H 07/27/16: Lactic acid 2.5 H Other Subjective Data Physical Assessment: Pt seen resting in bed, +trach to mechanical ventilator. No caregivers present at bedside. Pt appeared overnourished for height. Abdominal distention noted. Bedscale reads 311 lb/141 kg. GI Integrity: Per EMR, abdomen is soft and distended with active bowel sounds. Pt has rectal tube, seen with little output. Last BM recorded x1 08/07/16. PO Intakes: Pt recently advanced to pureed diet with nectar thick liquids per speech therapist rec. Per RN, pt tolerated well, little coughing, no aspirations. Pt reports poor appetite at this time, but at most of tray. Advised pt to eat slowly with small bites. Integumentary: Per EMR, Randall scale: 14, Redness to lower abdomen, perineal area, left proximal abdomen and coccyx. Rash to anterior chest. Wound Re-Evaluation (08/05/16): Skin is fair (-). Buttocks erythema from IAD, breast and abdominal folds redness. Plans/Procedures: Pt is s/p x2 day tracheostomy. No plans per RN. Per EMR, pt refused 08/11/16 lab draw Pt is not yet meeting optimal nutritional needs. Pt is not appropriate for nutrition education. Problem, Etiology, Signs/Symptoms Increased nutritional requirements related to acute state and vent support as evidenced by elevated WBC and lactic acid lab draws, and estimated nutritional requirements. Expected Outcomes or Goals - Monitor tolerance to EN w/ goal of pt meeting at least 50% of estimated nutritional needs, labs trending WNL, normal GI function, and skin integrity/wt maintenance Dietitian Recommendations (modified) * Continue pureed diet with nectar thick liquids per MD * Monitor PO intakes at this time Follow Up High Risk: F/U in 2-3 days Addendum: 08/11/16 at 1703 by Pavan LARA Corrections: Problem, Etiology, Signs/Symptoms Increased nutritional requirements related to acute state and vent support as evidenced by elevated WBC and lactic acid lab draws, and estimated nutritional requirements. *ongoing Expected Outcomes or Goals 1. Monitor tolerance to pureed diet with nectar thick liquids with goal of meeting at least 50% of estimated needs with acceptable tolerance 2. Labs trending within normal limits 3. Weight maintenance 4. Improved skin integrity 5. Improved GI function Dietitian Recommendations (modified) * Continue pureed diet with nectar thick liquids per MD. Note that pureed diet comes standard with Boost Plus TID which provides 1080 kcal/day and 42 gm protein/day to aid in low PO intakes and weight maintenance. * Monitor PO intakes at this time. Encourage PO intakes. Assist with feeding as needed. Addendum: 08/11/16 at [address] reviewed/approved events intern note. LESLY RILEY
--- NOTE | 2016-08-11 20:00 | NUR ---
Initial Notes Received patient resting in bed with eyes closed, easily aroused to name. Patient alert, oriented, denies any acute distress at this time. Breathing even and unlabored on mechanical vent, setting AC 14, TV 500, FiO2 30%, PEEP 5, tolerating well. PICC line to BLAKE, patent/clean/dry. Ricardo draining yellow urine to gravity. Flexiseal noted, no drainage per prior nurse. Fistula noted to abdomen. Patient on contact isolation for MRSA of nares. Educated patient on use of call light for assistance and fall precautions, patient verbalized understanding. Patient complaint of abdominal pain, will medicate patient per MD orders. Patient repositioned for comfort, needs addressed. Call light in hand, will continue to monitor.
[2016-08-11] MEDS ORDERED: CLOTRIMAZOLE 2% 3 DAY VAGINAL 21 GM CREAM.APPL VG SCH ×2 (21:00)
--- NOTE | 2016-08-11 23:00 | NUR ---
Notes Patient resting in bed comfortably. Patient denies any acute distress or pain at this time. Breathing even and unlabored on mechanical vent, tolerating well. Patient repositioned for comfort. Ricardo draining to gravity. Patient occasionally converts from SR to Afib, and back again, asymptomatic. Needs addressed. Call light in hand, will continue to monitor.
[2016-08-12] VITALS (32 sets, daily range): BP systolic 99–158; BP diastolic 40–92; PULSE 51–94; RESP 11–28; TEMP 96.4–99.2; O2SAT 95–100
--- NOTE | 2016-08-12 01:00 | NUR ---
Notes Patient resting comfortably in bed with eyes closed. No acute distress noted. Breathing even and unlabored on mechanica vent. Ricardo and flexiseal draining to gravity. Call light in hand, fall precautions in place. Will continue to monitor.
[2016-08-12] MEDS: IPRATROPIUM/ALBUTEROL SULFATE 3 ML AMPUL.NEB INH SCH ×4 (01:57→21:05)
--- NOTE | 2016-08-12 03:00 | NUR ---
Hygiene care and Pericare provided. Patient resting in bed, denies any acute distress or pain. Breathing even and unlabored on mech vent. Skin care and pericare provided, patient tolerated well. Patient repositioned for comfort. Call light in hand, fall precautions in place. Will continue to monitor.
--- NOTE | 2016-08-12 06:10 | NUR ---
RT Placed Pt on SIMV Settings changed by RT per MD order, new settings SIMV 10, TV 500, Fi02 30%, PEEP 5, Pressure support 10. Patient tolerating new settings, breathing even and unlabored. Will continue to monitor.
--- NOTE | 2016-08-12 06:46 | NUR ---
Closing Notes Patient resting in bed, awake. Patient denies any acute distress or pain at this time. Breathing even and unlabored on mechanical vent. PICC line patent/clean/dry, no S/S infection/infiltration noted. Ricardo draining yellow urine to gravity. Flexiseal in place. Needs addressed throughout shift. Call light in hand, fall precautions in place. Will continue to monitor for changes and safety, and endorse all patient care/needs to oncoming nurse.
--- NOTE | 2016-08-12 08:00 | NUR ---
Received patient in morning awake and alert, oriented x4. SR on monitor rhythm irregular. On vent to trach, and patient on SIMV and tolerating vent changes this morning. No co pain. Gordon Guerra RN
[2016-08-12] MEDS: VANCOMYCIN HCL 1,000 MG in NS 250 ML IV SCH ×2 (08:33→23:03)
[2016-08-12] MEDS: ENOXAPARIN SODIUM 40 MG/0.4 ML SYRINGE SUBCUT SCH (08:35)
[2016-08-12] MEDS: CLOTRIMAZOLE 1% TOPICAL CREAM 15 GM TP SCH (08:35)
[2016-08-12] MEDS: MUPIROCIN 2% TOPICAL OINTMENT 22 GM TP SCH ×2 (08:36→23:06)
[2016-08-12] MEDS: MULTIVITAMINS,THERAPEUTIC 5 ML UDC GT SCH ×2 (08:36→23:02)
[2016-08-12] MEDS: PANTOPRAZOLE SODIUM 40 MG/VIAL (PROTONIX) IVP SCH (08:37)
[2016-08-12] MEDS: FLUoxetine HCL 20 MG CAPSULE (PROzac) PO SCH (08:37)
[2016-08-12] MEDS: FLUCONAZOLE 100 MG TABLET (DIFLUCAN) PO SCH (08:37)
[2016-08-12] MEDS: POTASSIUM CHLORIDE 20 MEQ/PKT PACKET PO SCH ×3 (08:37→23:06)
[2016-08-12] MEDS: LOSARTAN POTASSIUM 25 MG TABLET PO SCH ×2 (08:38→23:05)
[2016-08-12] MEDS: ATORVASTATIN 20 MG TABLET PO SCH (08:38)
[2016-08-12] MEDS: CARVEDILOL 3.125 MG TABLET (COREG) PO SCH ×2 (08:47→23:05)
[2016-08-12] MEDS ORDERED: CYANOCOBALAMIN 1000 MCG/ML VIAL IM ONE (10:15)
[2016-08-12] MEDS ORDERED: ASPIRIN 81 MG TABLET(ECOTRIN) PO ONE (10:30)
[2016-08-12] MEDS: MORPHINE 2 MG/ML INJ. SYRINGE IVP PRN ×2 (10:43→15:00)
[2016-08-12] MEDS: FERROUS GLUCONATE 300 MG TABLET PO SCH ×3 (11:18→23:06)
[2016-08-12] MEDS: CYANOCOBALAMIN 1000 mCg TABLET PO SCH (11:20)
[2016-08-12] MEDS: INSULIN REGULAR, HUMAN 100 UNITS/ML, 10 ML VIAL (novoLIN R) SUBCUT PRN (11:26)
--- NOTE | 2016-08-12 12:00 | NUR ---
Patient BS 175, and patient did receive regular insulin per sliding scale per do. Patient repositioned to comfort, HOB elevated 30 degrees to eat lunch. Gordon Guerra RN
--- NOTE | 2016-08-12 13:43 | NUR ---
Patient care change, and report endorsed to Keara LUO receiving report. Gordon Guerra RN
--- NOTE | 2016-08-12 13:43 | NUR ---
Foard of Care Received report from PUJA Leyva. NO SOB. In no distress. Will continue to monitor.
[2016-08-12] MEDS ORDERED: FUROSEMIDE 40 MG/4 ML VIAL IVP ONE (15:30)
[2016-08-12 15:56] LABS: BASOPHILS % (AUTO) 0.5 % (0.0-2.0); EOSINOPHILS # (AUTO) 0.3 K/uL (0.0-0.4); EOSINOPHILS % (AUTO) 3.6 % (0.0-4.0); HEMATOCRIT 29.8 % (36-48); HEMOGLOBIN 9.3 g/dL (12.0-16.0); LYMPHOCYTES # (AUTO) 1.1 K/uL (1.0-5.5); MEAN CORPUSCULAR HEMOGLOBIN 27 pg (27-31); MEAN CORPUSCULAR HGB CONC 31 % (32-36); MEAN CORPUSCULAR VOLUME 86 fL (79.0-98.0); MONOCYTES # (AUTO) 0.6 K/uL (0.0-1.0); MONOCYTES % (AUTO) 6.7 % (1.7-9.3); NEUTROPHILS # (AUTO) 6.8 K/uL (1.8-7.7); NEUTROPHILS % (AUTO) 77.2 % (40.0-70.0); PLATELET COUNT (AUTO) 319 K/uL (130-430); RED BLOOD CELL COUNT(AUTO) 3.46 MIL/uL (4.2-6.2); RED CELL DISTRIBUTION WIDTH 17.5 % (9.0-15.0); WHITE BLOOD COUNT (AUTO) 8.8 K/uL (4.8-10.8)
[2016-08-12 16:08] LABS: CALCIUM 9.1 mg/dL (8.4-11.0); CHLORIDE 105 mmol/L (98-107); GLUCOSE 168 mg/dL (70-99); POTASSIUM 4.6 mmol/L (3.5-5.1); SODIUM SERUM 141 mmol/L (136-145); UREA NITROGEN, BLOOD 21 mg/dL (8-21)
[2016-08-12 16:09] LABS: CREATININE 1.77 mg/dL (0.55-1.30); PHOSPHORUS 4.8 mg/dL (2.7-4.5)
[2016-08-12 16:13] LABS: IRON (SERUM) 22 mcg/dL (37-145); TOTAL IRON BIND. CAPACITY 171 ug/dL (250-450)
[2016-08-12 16:14] LABS: ANION GAP < 3 (5-15)
--- NOTE | 2016-08-12 18:00 | NUR ---
Transferred pt to telemetry, room 101A. Report given to PUJA Villarreal and endorsed all care. Pt in no acute distress. No pain.
--- NOTE | 2016-08-12 18:28 | NUR ---
Patient received awake alert oriented x4, she is non verbal, but is alert oriented. Daughter at bedside at this time as well. Pt is on a ventilator. Placed on the tele monitor and also the continuous pulse ox. Settings SIMV 10 Pressure support of 10 TV500 FIO2 30% Peep of 5. Pt is tolerating Vent. Suctioned at this time, no sputum. Pt refuising to wear the SCD at this time, states her legs hurt. He legs have discoloration and redness. Edema +1 pitting. noted. Pt has call lignt in reach, teach back noted. Bed alarm on. Pt has a duran catheter draining. Belonings list updated. Daughter confirmed pts belongings sent home. No belonings at bedside. Air mattress turned on.
--- NOTE | 2016-08-12 19:02 | NUR ---
Closing note Patient resting asleep, stable, call light in hand. Tolerating ventilator. Bed alarm on and air matress also turned on. SCD remains off as pt refused at this time and daughter also witnessed pt being educated and was herself educated on risk of DVT. Bother verbalized understanding. BP systolic 99's. asymptomatic. I will endorse to manager night.
--- NOTE | 2016-08-12 19:15 | NUR ---
change of shift.initial pt's assessment.pt.presents ventilator.reviewed settings,trach assessed.abdomen drain assessed. duran catheter present,flexi-seal rectal presents.picc line assessed:dsg dry/intact.pt.presents trach:talking.pt.able to mouth needs.lower extremity infection:scd's removed.call light placed w/in pt's reach.
--- NOTE | 2016-08-12 20:00 | NUR ---
pt.assessed.v/s assessed.vent settings reviewed:tolerating.abdomen drain assessed,duran assessed,flexiseal assessed. call light placed w/in pt's reach.
--- NOTE | 2016-08-12 20:30 | NUR ---
blood glucose assessed:126mg/dl value.
--- NOTE | 2016-08-12 22:00 | NUR ---
pt.assessed.vent settings reviewed:tolerating.pt.suctioned.pt.re-positioned.abdomen drain assessed,duran catheter assessed,flexiseal assessed.call light placed w/in pt's reach.vanco mycin abx/ivpb administered.
[2016-08-13] VITALS (17 sets, daily range): BP systolic 113–137; BP diastolic 59–79; PULSE 54–102; RESP 17–24; TEMP 97–98.2; O2SAT 92–98
--- NOTE | 2016-08-13 | NUR ---
pt.assessed.vent settings reviewed:tolerating.duran cath assessd.flexiseal assessed.abdomen drain assessed. pt.suctioned.pt.re-positioned.call light palced w/in pt's reach.
[2016-08-13] MEDS: MORPHINE 2 MG/ML INJ. SYRINGE IVP PRN ×3 (00:38→09:22)
[2016-08-13] MEDS: IPRATROPIUM/ALBUTEROL SULFATE 3 ML AMPUL.NEB INH SCH ×4 (01:15→19:28)
--- NOTE | 2016-08-13 02:00 | NUR ---
pt.assessed.vent settings reviewed:tolerating.abdomen drain assessed,duran cath assessed,flexiseal assessed. pt.suctioned,pt,repositioned.call ligth placed w/in pt's reach.
--- NOTE | 2016-08-13 04:00 | NUR ---
pt.assessed.pt.repositioned.pt.suctioned.abdomen drain assessed.duran cath assessed,flexiseal assessed. call light palced w/in pt's reach.
--- NOTE | 2016-08-13 05:00 | NUR ---
pt.assesed.pt.presents quiescent affect;calm,asleep.call light placed w/in pt's reach.
[2016-08-13 06:28] LABS: BASOPHILS % (AUTO) 0.5 % (0.0-2.0); EOSINOPHILS # (AUTO) 0.3 K/uL (0.0-0.4); EOSINOPHILS % (AUTO) 3.6 % (0.0-4.0); HEMOGLOBIN 8.8 g/dL (12.0-16.0); LYMPHOCYTES % (AUTO) 12.4 % (20.5-51.5); MEAN CORPUSCULAR HEMOGLOBIN 27 pg (27-31); MEAN CORPUSCULAR HGB CONC 31 % (32-36); MEAN CORPUSCULAR VOLUME 87 fL (79.0-98.0); MONOCYTES # (AUTO) 0.5 K/uL (0.0-1.0); MONOCYTES % (AUTO) 6.1 % (1.7-9.3); NEUTROPHILS # (AUTO) 6.1 K/uL (1.8-7.7); NEUTROPHILS % (AUTO) 77.4 % (40.0-70.0); PLATELET COUNT (AUTO) 313 K/uL (130-430); RED BLOOD CELL COUNT(AUTO) 3.33 MIL/uL (4.2-6.2); RED CELL DISTRIBUTION WIDTH 17.8 % (9.0-15.0); WHITE BLOOD COUNT (AUTO) 7.9 K/uL (4.8-10.8)
[2016-08-13 06:47] LABS: ANION GAP 3 (5-15); CALCIUM 9.4 mg/dL (8.4-11.0); CHLORIDE 106 mmol/L (98-107); CREATININE 1.94 mg/dL (0.55-1.30); GLUCOSE 131 mg/dL (70-99); POTASSIUM 4.4 mmol/L (3.5-5.1); SODIUM SERUM 144 mmol/L (136-145); UREA NITROGEN, BLOOD 21 mg/dL (8-21)
--- NOTE | 2016-08-13 08:30 | NUR ---
AM ROUNDS Late entry due to patient care. Patient received, awake alert and oriented x4. Patient trach to vent. Ventilator settings noted. Patient able to voice minimal communication and nod to questions. Respirations even and unlabored. quality assurance monitor body in place, rhythm noted. IV site patent and intact. Abdomen soft and rounded. Colostomy bag to abdomen noted, skin intact. Ricardo draining to gravity, urine output noted. Flexi-seal draining, scant output noted. Patient repositioned with pillow support. Plan of care discussed, patient nodded in agreement. Safety, fall, and contact precautions in place, call light within reach. Will continue to monitor.
[2016-08-13 08:52] LABS: BLOOD GAS PH 7.342 (7.350-7.450)
[2016-08-13 08:53] LABS: ABG TOTAL HEMOGLOBIN 10.4 G/dL (12.0-18.0); BLOOD GAS BASE EXCESS 4.7 mmol/L (-3.0-3.0); BLOOD GAS COHb% 1.6 % (0.5-1.5); BLOOD GAS HHB 5.7 % (0.0-6.0); BLOOD O2Hb% 92.3 % (94.0-97.0)
[2016-08-13] MEDS: PANTOPRAZOLE SODIUM 40 MG/VIAL (PROTONIX) IVP SCH (09:05)
[2016-08-13] MEDS: FLUoxetine HCL 20 MG CAPSULE (PROzac) PO SCH (09:05)
[2016-08-13] MEDS: ENOXAPARIN SODIUM 40 MG/0.4 ML SYRINGE SUBCUT SCH (09:05)
[2016-08-13] MEDS: MULTIVITAMINS,THERAPEUTIC 5 ML UDC GT SCH ×2 (09:05→21:07)
[2016-08-13] MEDS: ASPIRIN 81 MG TABLET(ECOTRIN) PO SCH (09:06)
[2016-08-13] MEDS: CYANOCOBALAMIN 1000 mCg TABLET PO SCH (09:06)
[2016-08-13] MEDS: ATORVASTATIN 20 MG TABLET PO SCH (09:06)
[2016-08-13] MEDS: FLUCONAZOLE 100 MG TABLET (DIFLUCAN) PO SCH (09:06)
[2016-08-13] MEDS: FERROUS GLUCONATE 300 MG TABLET PO SCH ×3 (09:06→21:08)
[2016-08-13] MEDS: VANCOMYCIN HCL 1,000 MG in NS 250 ML IV SCH ×2 (09:11→21:07)
[2016-08-13] MEDS: CARVEDILOL 3.125 MG TABLET (COREG) PO SCH ×2 (09:12→21:08)
[2016-08-13] MEDS: POTASSIUM CHLORIDE 20 MEQ/PKT PACKET PO SCH (09:12)
[2016-08-13] MEDS: CLOTRIMAZOLE 1% TOPICAL CREAM 15 GM TP SCH (09:20)
[2016-08-13] MEDS: MUPIROCIN 2% TOPICAL OINTMENT 22 GM TP SCH ×2 (09:20→21:10)
--- NOTE | 2016-08-13 10:10 | NUR ---
ROUNDS Patient provided with oral and skin care. Patient repositioned with pillow support. Family at bedside. Respirations even and unlabored. No further needs at this time. Safety, fall, and contact precautions in place. Call light within reach. Will continue to monitor.
[2016-08-13] MEDS: LOSARTAN POTASSIUM 25 MG TABLET PO SCH (11:09)
--- NOTE | 2016-08-13 12:49 | NUR ---
ROUNDS Patient sleeping, easily aroused. Repositioned with pillow support. No acute distress noted. Patient denies SOB at this time. Oral care provided. No further needs at this time. Safety, fall, and contact precautions in place, call light within reach. Will continue to monitor.
--- NOTE | 2016-08-13 14:30 | NUR ---
ROUNDS Patient sleeping, chest rise noted. No acute distress. No further needs. Will continue to monitor.
[2016-08-13] MEDS: LR 1,000 ML IV SCH (15:46)
--- NOTE | 2016-08-13 16:37 | NUR ---
ROUNDS Patient repositioned with pillow support. IVF infusing as ordered. Blood sugar 165 coverage to be given as indicated. No further needs. Will continue to monitor.
[2016-08-13] MEDS: INSULIN REGULAR, HUMAN 100 UNITS/ML, 10 ML VIAL (novoLIN R) SUBCUT PRN ×2 (17:03→22:47)
--- NOTE | 2016-08-13 18:08 | NUR ---
CLOSING NOTE Patient repositioned with pillow support. Denies pain and SOB at this time. IVF infusing as ordered. Trach to vent, ventilator settings noted. Ricardo draining to gravity. Flexi-seal output noted. No further needs at this time. Safety, fall, and contact precautions in place. Call light within reach. Will endorse to next shift.
--- NOTE | 2016-08-13 20:00 | NUR ---
TRACH TO VENT. SUCTIONED WITH SMALL AMOUNT OF THIN PALE YELLOW MUCUS OBTAINED. ORAL CARE DONE. AAOX3. DENIES PAIN. ENTEROCUTANEOUS FISTULA IN RIGHT UPPER ABDOMEN WITH GREENISH BROWN DRAINAGE TO COLOSTOMY BAG. BRAGA CATH PATENT DRAINING CLOUDY YELLOW URINE TO GRAVITY. FLEXISEAL WITH SMALL AMOUNT OF LIQUID DARK GREENISH BROWN STOOL NOTED. BLAKE PICC LINE ROQUE D/I. SR.
--- NOTE | 2016-08-13 22:00 | NUR ---
SUCTIONED. HS CARE. ASSISTS WITH REPOSITIONING. ACCU-CHEK EARLIER 126, NO INSULIN COV DUE PER SLIDING SCALE.
[2016-08-14] VITALS (16 sets, daily range): BP systolic 120–156; BP diastolic 52–75; PULSE 60–103; RESP 16–25; TEMP 97.4–98.2; O2SAT 92–100
--- NOTE | 2016-08-14 | NUR ---
SUCTIONED. TURNED. ORAL CARE. DOZES ON AND OFF.
[2016-08-14] MEDS: IPRATROPIUM/ALBUTEROL SULFATE 3 ML AMPUL.NEB INH SCH ×3 (01:19→12:42)
--- NOTE | 2016-08-14 04:00 | NUR ---
SLEPT FOR LONG PERIODS OF TIME. SPONGE BATH GIVEN. ORAL CARE. ARMOND-CARE. BRAGA CARE. BACK CARE. SKIN CARE. PARTIAL LINEN CHANGE. ASSISTS WITH TURNING AND REPOSITIONING. SOB UPON EXERTION.
[2016-08-14] MEDS: LR 1,000 ML IV SCH ×3 (05:07→22:23)
[2016-08-14] MEDS: INSULIN REGULAR, HUMAN 100 UNITS/ML, 10 ML VIAL (novoLIN R) SUBCUT PRN ×2 (06:42→16:35)
--- NOTE | 2016-08-14 07:00 | NUR ---
SLEPT INTERMITTENTLY. ACCU-CHEK 122, NO INSULIN COV DUE PER SLIDING SCALE. REMAINS IN GUARDED BUT STABLE CONDITION.
[2016-08-14 07:25] LABS: BASOPHILS % (AUTO) 0.4 % (0.0-2.0); EOSINOPHILS # (AUTO) 0.5 K/uL (0.0-0.4); EOSINOPHILS % (AUTO) 5.6 % (0.0-4.0); HEMATOCRIT 26.9 % (36-48); HEMOGLOBIN 8.3 g/dL (12.0-16.0); LYMPHOCYTES # (AUTO) 0.9 K/uL (1.0-5.5); LYMPHOCYTES % (AUTO) 10.1 % (20.5-51.5); MEAN CORPUSCULAR HEMOGLOBIN 27 pg (27-31); MEAN CORPUSCULAR HGB CONC 31 % (32-36); MEAN CORPUSCULAR VOLUME 87 fL (79.0-98.0); MONOCYTES # (AUTO) 0.5 K/uL (0.0-1.0); MONOCYTES % (AUTO) 5.6 % (1.7-9.3); NEUTROPHILS # (AUTO) 6.6 K/uL (1.8-7.7); NEUTROPHILS % (AUTO) 78.3 % (40.0-70.0); PLATELET COUNT (AUTO) 320 K/uL (130-430); RED CELL DISTRIBUTION WIDTH 17.2 % (9.0-15.0); WHITE BLOOD COUNT (AUTO) 8.5 K/uL (4.8-10.8)
[2016-08-14 07:55] LABS: ALANINE AMINOTRANSFERASE 11 U/L (12-78); ALBUMIN 1.8 g/dL (3.4-4.8); ANION GAP 1 (5-15); ASPARTATE AMINOTRANSFERASE 9 U/L (10-37); CALCIUM 8.9 mg/dL (8.4-11.0); CHLORIDE 105 mmol/L (98-107); CREATININE 1.91 mg/dL (0.55-1.30); GLUCOSE 128 mg/dL (70-99); PHOSPHORUS 4.7 mg/dL (2.7-4.5); POTASSIUM 4.3 mmol/L (3.5-5.1); SODIUM SERUM 139 mmol/L (136-145); TOTAL BILIRUBIN 0.3 mg/dL (0.0-1.0); TOTAL PROTEIN, SERUM 7.1 g/dL (6.4-8.3); UREA NITROGEN, BLOOD 24 mg/dL (8-21)
--- NOTE | 2016-08-14 08:00 | NUR ---
Patient awake ,alert communicating by writing notes. Patient not in respiratory distress with Trach to ventilator with setting at SIMV rate 10 TV 500 PEEP-5 PS-10 FIO2 -30% ,Saturating -97%. suctioned trach with scanty whitish secretion.PICC line intact on the right upper arm with LR @ 100 cc/hr. dressing dry and intact .
[2016-08-14] MEDS: MORPHINE 2 MG/ML INJ. SYRINGE IVP PRN ×2 (08:31→18:21)
[2016-08-14] MEDS: VANCOMYCIN HCL 1,000 MG in NS 250 ML IV SCH (08:35)
[2016-08-14] MEDS: MULTIVITAMINS,THERAPEUTIC 5 ML UDC GT SCH ×2 (08:37→21:12)
[2016-08-14] MEDS: PANTOPRAZOLE SODIUM 40 MG/VIAL (PROTONIX) IVP SCH ×2 (08:37→21:12)
[2016-08-14] MEDS: CARVEDILOL 3.125 MG TABLET (COREG) PO SCH ×2 (08:38→21:13)
[2016-08-14] MEDS: CYANOCOBALAMIN 1000 mCg TABLET PO SCH (08:39)
[2016-08-14] MEDS: FERROUS GLUCONATE 300 MG TABLET PO SCH ×4 (08:39→21:15)
[2016-08-14] MEDS: ATORVASTATIN 20 MG TABLET PO SCH (08:39)
[2016-08-14] MEDS: ASPIRIN 81 MG TABLET(ECOTRIN) PO SCH (08:39)
[2016-08-14] MEDS: FLUoxetine HCL 20 MG CAPSULE (PROzac) PO SCH (08:39)
[2016-08-14] MEDS: FLUCONAZOLE 100 MG TABLET (DIFLUCAN) PO SCH (08:39)
[2016-08-14] MEDS: ENOXAPARIN SODIUM 40 MG/0.4 ML SYRINGE SUBCUT SCH (08:40)
[2016-08-14] MEDS: MUPIROCIN 2% TOPICAL OINTMENT 22 GM TP SCH ×2 (08:42→21:13)
[2016-08-14] MEDS: CLOTRIMAZOLE 1% TOPICAL CREAM 15 GM TP SCH (08:42)
--- NOTE | 2016-08-14 09:00 | NUR ---
Patient tolerating pureed diet ,able to fed herself. Instructed to eat slowly to prevent aspiration.
--- NOTE | 2016-08-14 10:00 | NUR ---
Suctioned trach with scanty whitish secretion.
--- NOTE | 2016-08-14 10:30 | NUR ---
FLEXISEAL FLEXISEAL REMOVED, UNABLE TO GET STOOL SAMPLE. HAS MEDIUM PASTY TOOL IN THE FLEXISEAL TUBE
[2016-08-14] MEDS: SOD FERRIC GLUC COMPLEX/SUC 125 MG in NS 100 ML IV SCH ×2 (13:00→17:49)
--- NOTE | 2016-08-14 13:30 | NUR ---
ferliccit meds not available per pharmacy at tis time.
--- NOTE | 2016-08-14 14:50 | NUR ---
Hgb -8.3 ,Blood transfusion of 1 unit PRBC started via right upper PICC line Type O RH positive donor # [id number] .
--- NOTE | 2016-08-14 16:00 | NUR ---
PICC line dressing change ,insertion site intact ,no redness noted . Blood transfusion still in progress,no reaction noted.
[2016-08-14] MEDS: SUCRALFATE 1 GM TABLET PO SCH (16:33)
--- NOTE | 2016-08-14 17:00 | NUR ---
Patient sleeping ,no blood transfusion reaction noted.
--- NOTE | 2016-08-14 19:50 | NUR ---
PM ASSESSMENT: Patient alert and oriented x 3. Able to make needs known by writing on a notebook or talking at times. Patient is on a trach to vent with vent settings SIMV 10, TV 500, FiO2 30%, Peep 5, PS 10. Afebrile. SR on the monitor with occasional PACs. Patient has left upper arm PICC line, patent and intact with LR running at 100ml/hr. No signs of redness or swelling on the PICC site. Patient also has a fistula on the mid abdomen, no drainage noted. Ricardo cath draining yellow urine. Bilateral SCDs in place. HOB elevated at 20 degrees with 3 side rails up and bed in lowest level. Bed brakes locked. All needs met. Denies any pain or discomfort at this time. Placed call light within reach. Will continue to monitor.
--- NOTE | 2016-08-14 21:45 | NUR ---
ACCUCHECK: Patient's blood sugar 123 at this time. Patient very pleased with the result. Vital signs stable. No acute distress or SOB noted. Due meds given. Will continue to monitor.
[2016-08-15] VITALS (17 sets, daily range): BP systolic 102–146; BP diastolic 44–89; PULSE 52–105; RESP 17–19; TEMP 96.4–98.7; O2SAT 89–100
[2016-08-15] MEDS: IPRATROPIUM/ALBUTEROL SULFATE 3 ML AMPUL.NEB INH SCH ×4 (01:10→19:36)
--- NOTE | 2016-08-15 01:45 | NUR ---
PT UPDATE: Patient sleeping comfortably at this time. Patient in no acute distress or SOB. Vent settings tolerating well. Vital signs wnl. Safety precautions in place. Will continue to monitor.
[2016-08-15] MEDS: MORPHINE 2 MG/ML INJ. SYRINGE IVP PRN ×3 (05:27→14:52)
--- NOTE | 2016-08-15 06:30 | NUR ---
ACCUCHECK: Blood sugar 123 at this time. No insulin coverage at this time. No acute distress or SOB.
[2016-08-15] MEDS: SUCRALFATE 1 GM TABLET PO SCH ×2 (06:43→17:43)
--- NOTE | 2016-08-15 06:56 | NUR ---
PT UPDATE: Patient in no acute distress or SOB. Sleeping comfortably with electric fan turned on. Safety precautions in place. All needs met throughout the shift. Call light within reach. Will endorse care to next shift nurse.
[2016-08-15 07:29] LABS: ALANINE AMINOTRANSFERASE 11 U/L (12-78); ALBUMIN 1.9 g/dL (3.4-4.8); ANION GAP 4 (5-15); ASPARTATE AMINOTRANSFERASE 8 U/L (10-37); CALCIUM 8.7 mg/dL (8.4-11.0); CHLORIDE 103 mmol/L (98-107); CREATININE 1.98 mg/dL (0.55-1.30); GLUCOSE 136 mg/dL (70-99); POTASSIUM 4.5 mmol/L (3.5-5.1); SODIUM SERUM 139 mmol/L (136-145); TOTAL BILIRUBIN 0.3 mg/dL (0.0-1.0); TOTAL PROTEIN, SERUM 7.4 g/dL (6.4-8.3); UREA NITROGEN, BLOOD 23 mg/dL (8-21)
[2016-08-15 07:31] LABS: BASOPHILS % (AUTO) 0.3 % (0.0-2.0); EOSINOPHILS # (AUTO) 0.4 K/uL (0.0-0.4); EOSINOPHILS % (AUTO) 4.3 % (0.0-4.0); LYMPHOCYTES % (AUTO) 10.9 % (20.5-51.5); MEAN CORPUSCULAR HEMOGLOBIN 27 pg (27-31); MEAN CORPUSCULAR HGB CONC 31 % (32-36); MEAN CORPUSCULAR VOLUME 87 fL (79.0-98.0); MONOCYTES # (AUTO) 0.5 K/uL (0.0-1.0); MONOCYTES % (AUTO) 5.4 % (1.7-9.3); NEUTROPHILS # (AUTO) 7.1 K/uL (1.8-7.7); NEUTROPHILS % (AUTO) 79.1 % (40.0-70.0); PLATELET COUNT (AUTO) 289 K/uL (130-430); RED BLOOD CELL COUNT(AUTO) 3.36 MIL/uL (4.2-6.2); RED CELL DISTRIBUTION WIDTH 16.6 % (9.0-15.0)
--- NOTE | 2016-08-15 08:00 | NUR ---
initial notes rec patient awake alert obese patient, hob slightly elevated. with a trache connected to a mechanical ventilator. with a picc line on the r upper arm. no infiltration noted. bed in low position and side rails up and locked.call light within reached and knows when to call for assistance. will continue to monitor patient.
[2016-08-15] MEDS: PANTOPRAZOLE SODIUM 40 MG/VIAL (PROTONIX) IVP SCH ×2 (08:21→21:30)
[2016-08-15] MEDS: MULTIVITAMINS,THERAPEUTIC 5 ML UDC GT SCH ×2 (08:24→21:30)
[2016-08-15] MEDS: CARVEDILOL 3.125 MG TABLET (COREG) PO SCH ×2 (08:25→21:33)
[2016-08-15] MEDS: ENOXAPARIN SODIUM 40 MG/0.4 ML SYRINGE SUBCUT SCH (08:26)
[2016-08-15] MEDS: FLUoxetine HCL 20 MG CAPSULE (PROzac) PO SCH (08:26)
[2016-08-15] MEDS: ATORVASTATIN 20 MG TABLET PO SCH (08:26)
[2016-08-15] MEDS: FLUCONAZOLE 100 MG TABLET (DIFLUCAN) PO SCH (08:26)
[2016-08-15] MEDS: CYANOCOBALAMIN 1000 mCg TABLET PO SCH (08:26)
[2016-08-15] MEDS: ASPIRIN 81 MG TABLET(ECOTRIN) PO SCH (08:26)
[2016-08-15] MEDS: MUPIROCIN 2% TOPICAL OINTMENT 22 GM TP SCH ×2 (08:27→21:42)
[2016-08-15] MEDS: CLOTRIMAZOLE 1% TOPICAL CREAM 15 GM TP SCH (08:28)
[2016-08-15] MEDS: LR 1,000 ML IV SCH ×2 (08:28→15:30)
--- NOTE | 2016-08-15 10:00 | NUR ---
rounds somewhat upset n wants to sit in a chair. due meds given as ordered. call light within reached.
--- NOTE | 2016-08-15 10:15 | NUR ---
DISCHARGE PLANNING Called [facility] liaison who stated patient accepted, pending order for bed assignment. REID Caballero made aware.
--- NOTE | 2016-08-15 12:00 | NUR ---
rounds due meds given. no hypo hyperglycemic reaction noted. daughter at bedside and updated re patient's condition. no acute distress noted. call light within reached.
--- NOTE | 2016-08-15 12:19 | NUR ---
RANDALL RE-EVALUATION: Patient re-evaluated for a low Randall score of 13. Patient was awake, alert, oriented, and received in a Kai bed with an IsoFlex EDUARDA mattress with low air-loss therapy. On ETT to Ventilator. Patient is unable to turn independently. Skin is fair (-); Buttocks have erythema from IAD; Breast and Abdominal folds have redness from moisture. Recommend continue: Reposition patient side to side only every 2 hours with pillow support and off-load pressure areas with pillows for pressure re-distribution. Elevate, off-load and float bilateral heels with pillows. Use moisture barrier cream on buttocks, Abdominal folds, Breast folds, and other moisture susceptible areas QID and as needed for soiling. Perform skin care and monitor skin integrity Q shift. Maintain patient on low air-loss therapy.
[2016-08-15] MEDS ORDERED: MORPHINE SULFATE 15 MG TABLET.SA PO SCH (12:30)
[2016-08-15] MEDS ORDERED: MORPHINE SULFATE 30 MG Immediate Release TABLET PO PRN (13:00)
--- NOTE | 2016-08-15 14:00 | NUR ---
rounds resting comfortably, watching tv at this time. due med given as ordered.
[2016-08-15] MEDS: SOD FERRIC GLUC COMPLEX/SUC 125 MG in NS 100 ML IV SCH (14:35)
[2016-08-15] MEDS: FERROUS GLUCONATE 300 MG TABLET PO SCH ×2 (14:53→21:39)
--- NOTE | 2016-08-15 15:13 | NUR ---
Nutrition F/U Admitting Diagnosis Acute respiratory failure Past Medical History COPD, chronic respiratory failure, HLD, DM, CHF per MD notes Pt also found w/ acute hypercapnic respiratory failure, enterocutaneous fistula, mild protein malnutrition, morbid obesity Pertinent Medications Lipitor, protonix IV, morphine, zofran, SSI, D50%-syringe, MVI, vancomycin per pharmacy, lovenox, cozaar, coreg, vitamin B12, ferric sodium gluconate complex/NaCl, ferrous gluconate Current Diet Order Pureed, standard carb-60 gm, nectar thick liquids (x4 days) Height (Feet) 5 feet Height (Inches) 5.00 inches Weight (Pounds) (modified) 306 pounds (admission) 07/30/16 bedscale: 317 lbs/144 kg (unsure of accuracy) 08/02/16 bedscale: 314 lb/143 kg 08/09/16 bedscale: 309 lb/141 kg 08/11/16 bedscale: 311 lb/141 kg 08/15/16 bedscale: 319 lb/145 kg Weight (Calculated Kilograms) 138.384400 kilograms Patient Weight 138.799 kg Body Mass Index 50.92 kg/m2 (obesity class III) Cowley/Adjusted Body Weight IBW: 125 lb, 57 kg. 244% of IBW. Adj IBW (obesity): 244 lb, 111 kg Estimated Needs (modified) 3296-3208 kcal/day (11-14 kcal/kg CBW for vent support) Grams of Protein per Day 114-143 gm/day (2-2.5 gm/kg IBW for COPD and vent support) Fluid Intake Goal Per MD for Hx of CHF Pertinent Labs H/H 9 L/29 L, BUN 23 H, CRE 1.98 H, BG 136 H, AST 8 L, ALT 11 L, ALB 1.9 L 07/28/16: Iron 23 L, TIBC 238 L, HgbA1c 7.4 H 07/27/16: Lactic acid 2.5 H Other Subjective Data Pt seen resting in bed, +trach to mechanical ventilator. Pt appeared disoriented, asked for assistance; RD alerted RN. Per RN, pt has been tolerating diet but has been eating very little. Reported no planned procedures today; reported no BMs today (noted per RN notes, flexiseal was removed on 08/14/16). Per EMR, average PO intake is 47% x 3 days. Randall scale: 15 (08/14/16); per RN notes, anterior chest: redness, coccyx: dry scab, L proximal abdomen: redness, perineal: redness. I/Os (08/15/16): 350/300 (+50 ml); 30 ml stool output on 08/14/16. Recommend CCHO dietary restrictions to aid w/ BG control (RD updated diet order). Pt is not yet meeting optimal nutritional needs. Recommend continuing to assist w/ meals as needed to encourage PO intake. Pt is not appropriate for nutrition education. Problem, Etiology, Signs/Symptoms Increased nutritional requirements related to acute state and vent support as evidenced by elevated WBC and lactic acid lab draws, and estimated nutritional requirements. *ongoing Expected Outcomes or Goals 1. Monitor tolerance to pureed diet with nectar thick liquids with goal of meeting at least 50% of estimated needs with acceptable tolerance 2. Labs trending within normal limits 3. Weight maintenance 4. Improved skin integrity 5. Improved GI function Dietitian Recommendations (modified) * Continue pureed diet with nectar thick liquids per MD Note: pureed diet comes standard with Boost Plus TID which provides 1080 kcal/day and 42 gm protein/day to aid in low PO intakes and weight maintenance * Recommend CCHO dietary restrictions to aid w/ blood glucose control * Monitor PO intakes at this time and encourage PO intakes; assist with feeding as needed. Follow Up High Risk: F/U in 2-3 days Addendum: 08/15/16 at [address] *CORRECTION: Dietitian Recommendations (modified) * Continue pureed diet with nectar thick liquids per MD * Recommend CCHO dietary restrictions to aid w/ blood glucose control (Note: per puree diet standard, new diet order will include Boost Glucose Control TID which provides 750 kcal/day and 42 gm protein/day) * Monitor PO intakes at this time and encourage PO intakes; assist with feeding as needed.
--- NOTE | 2016-08-15 16:00 | NUR ---
rounds sleeping soundly at this time. hob slightly elevated, resting quietly.
--- NOTE | 2016-08-15 18:36 | NUR ---
closing notes resting quietly in bed. no sob noted. hob slightly elevated. trache stoma dressing was changed by ministerio garcia, needs attended.
--- NOTE | 2016-08-15 20:03 | NUR ---
OPENING NOTES PATIENT IS A/OX4. PATIENT HAS NO SIGNS OF DISTRESS. BREATHING IS NON LABORED. VENT SETTINGS VERIFIED. VITAL SIGNS ARE STABLE. PICC LINE IS CLEAN, DRY AND INTACT. PATIENT HAS NO COMPLAINTS OF PAIN. PATIENT INSTRUCTED TO CALL FOR ASSISTANCE. BED ALARM IS ON. WILL CONTINUE TO MONITOR.
[2016-08-15] MEDS: ALPRAZolam 0.25 MG TABLET PO PRN (21:30)
--- NOTE | 2016-08-15 22:05 | NUR ---
PATIENT REFUSED SCD'S. PATIENT WAS EDUCATED ON THE IMPORTANCE OF SCD'S. PATIENT REFUSED SCD'S.
--- NOTE | 2016-08-15 22:10 | NUR ---
HYGIENE PATIENT WAS GIVEN CGB BATH. PATIENT TOLERATED IT WELL. LINO VILLARREAL ASSISTED.
[2016-08-16] VITALS (18 sets, daily range): BP systolic 110–145; BP diastolic 65–79; PULSE 52–80; RESP 14–20; TEMP 96–98.7; O2SAT 91–97
[2016-08-16] MEDS: IPRATROPIUM/ALBUTEROL SULFATE 3 ML AMPUL.NEB INH SCH ×4 (00:15→20:13)
--- NOTE | 2016-08-16 00:45 | NUR ---
ROUNDS PATIENT IS IN BED RESTING AND WATCHING TV. NO SIGNS OF DISTRESS. BREATHING IS NON LABORED. NO COMPLAINTS OF PAIN. CALL LIGHT IS WITHIN REACH. SAFETY MEASURES ARE IN PLACE. WILL CONTINUE TO MONITOR.
[2016-08-16] MEDS: LR 1,000 ML IV SCH ×2 (01:30→12:55)
--- NOTE | 2016-08-16 01:47 | NUR ---
ROUNDS PATIENT IS IN BED SLEEPING. TV IS ON. NO SIGNS OF DISTRESS. BREATHING IS NON LABORED. CALL LIGHT IS WITHIN REACH. BED ALARM IS ON. WILL CONTINUE TO MONITOR.
--- NOTE | 2016-08-16 03:10 | NUR ---
ROUNDS PATIENT IS IN BED SLEEPING. NO SIGNS OF DISTRESS. BREATHING IS NON LABORED. CALL LIGHT IS WITHIN REACH. BED ALARM IS ON. WILL CONTINUE TO MONITOR.
[2016-08-16] MEDS: SUCRALFATE 1 GM TABLET PO SCH ×2 (06:24→18:03)
--- NOTE | 2016-08-16 06:25 | NUR ---
PATIENT REFUSED MEDICATION PATIENT REFUSED 0700 MEDICATION CARAFATE. PATIENT STATED THAT SHE DIDN'T WANT TO SWALLOW. INFORMED PATIENT THAT PILL COULD BE CRUSHED AND PUT IN APPLE SAUCE. PATIENT REFUSED. PATIENT EDUCATED ON THE IMPORTANCE OF THE MEDICATION.
--- NOTE | 2016-08-16 06:45 | NUR ---
PAIN AND ANXIETY PATIENT HAD COMPLAINTS OF PAIN AND ANXIETY. WILL GIVE PRN MEDICATION FOR PAIN AND PRN MEDICATION FOR ANXIETY.
[2016-08-16] MEDS: MORPHINE 2 MG/ML INJ. SYRINGE IVP PRN ×2 (06:55→18:03)
[2016-08-16] MEDS: ALPRAZolam 0.25 MG TABLET PO PRN ×3 (06:55→23:59)
[2016-08-16 07:20] LABS: BASOPHILS # (AUTO) 0.1 K/uL (0.0-0.2); BASOPHILS % (AUTO) 1.3 % (0.0-2.0); EOSINOPHILS # (AUTO) 0.5 K/uL (0.0-0.4); EOSINOPHILS % (AUTO) 5.6 % (0.0-4.0); HEMATOCRIT 28.9 % (36-48); HEMOGLOBIN 9.1 g/dL (12.0-16.0); LYMPHOCYTES # (AUTO) 0.9 K/uL (1.0-5.5); LYMPHOCYTES % (AUTO) 10.2 % (20.5-51.5); MEAN CORPUSCULAR HEMOGLOBIN 27 pg (27-31); MEAN CORPUSCULAR HGB CONC 32 % (32-36); MEAN CORPUSCULAR VOLUME 85 fL (79.0-98.0); MONOCYTES # (AUTO) 0.5 K/uL (0.0-1.0); MONOCYTES % (AUTO) 5.6 % (1.7-9.3); NEUTROPHILS # (AUTO) 6.4 K/uL (1.8-7.7); NEUTROPHILS % (AUTO) 77.3 % (40.0-70.0); PLATELET COUNT (AUTO) 286 K/uL (130-430); RED BLOOD CELL COUNT(AUTO) 3.38 MIL/uL (4.2-6.2); RED CELL DISTRIBUTION WIDTH 16.7 % (9.0-15.0); WHITE BLOOD COUNT (AUTO) 8.4 K/uL (4.8-10.8)
--- NOTE | 2016-08-16 07:23 | NUR ---
CLOSING NOTES PATIENT IS IN BED WATCHING TV. NO SIGNS OF DISTRESS. BREATHING IS NON LABORED. PICC LINE IS CLEAN DRY AND INTACT. CALL LIGHT IS WITHIN REACH. BED ALARM IS ON. REPORT GIVEN TO MORNING NURSE.
[2016-08-16 07:31] LABS: ANION GAP 4 (5-15); CALCIUM 9.3 mg/dL (8.4-11.0); CHLORIDE 102 mmol/L (98-107); CREATININE 1.95 mg/dL (0.55-1.30); GLUCOSE 116 mg/dL (70-99); POTASSIUM 4.2 mmol/L (3.5-5.1); SODIUM SERUM 138 mmol/L (136-145); UREA NITROGEN, BLOOD 24 mg/dL (8-21)
--- NOTE | 2016-08-16 08:00 | NUR ---
initial notes rec patient awake alert with hob elevated. with a trache connected to a mechanical ventilator. resp easy and unlabored sat is 95%. no osb noted. picc line to the r upper arm intact, double lumen. bed in low position and side rails up and locked.on contact isolation.call light within reached and knows when to call for assistance. will continue to monitor patient.
--- NOTE | 2016-08-16 10:20 | NUR ---
rounds due meds given and no sob noted.
[2016-08-16] MEDS: CYANOCOBALAMIN 1000 mCg TABLET PO SCH (10:21)
[2016-08-16] MEDS: FLUCONAZOLE 100 MG TABLET (DIFLUCAN) PO SCH (10:21)
[2016-08-16] MEDS: FERROUS GLUCONATE 300 MG TABLET PO SCH ×3 (10:21→20:48)
[2016-08-16] MEDS: MULTIVITAMINS,THERAPEUTIC 5 ML UDC GT SCH ×2 (10:21→20:47)
[2016-08-16] MEDS: CARVEDILOL 3.125 MG TABLET (COREG) PO SCH ×2 (10:22→20:48)
[2016-08-16] MEDS: ASPIRIN 81 MG TABLET(ECOTRIN) PO SCH (10:22)
[2016-08-16] MEDS: ATORVASTATIN 20 MG TABLET PO SCH (10:23)
[2016-08-16] MEDS: FLUoxetine HCL 20 MG CAPSULE (PROzac) PO SCH (10:23)
[2016-08-16] MEDS: ENOXAPARIN SODIUM 40 MG/0.4 ML SYRINGE SUBCUT SCH (10:23)
[2016-08-16] MEDS: CLOTRIMAZOLE 1% TOPICAL CREAM 15 GM TP SCH (10:24)
[2016-08-16] MEDS: MUPIROCIN 2% TOPICAL OINTMENT 22 GM TP SCH ×2 (10:24→20:49)
[2016-08-16] MEDS: PANTOPRAZOLE SODIUM 40 MG/VIAL (PROTONIX) IVP SCH ×2 (10:32→20:47)
--- NOTE | 2016-08-16 12:00 | NUR ---
rounds sleeping soundly at intervals. no sob noted. call light within reached and knows when to call for assistance.
--- NOTE | 2016-08-16 13:30 | NUR ---
rounds seen by dr mueller at bedside.
[2016-08-16] MEDS ORDERED: FUROSEMIDE 40 MG/4 ML VIAL IVP ONE (14:00)
--- NOTE | 2016-08-16 14:31 | NUR ---
rounds pt at the bedside and doing a passive exercise at bedside.
[2016-08-16] MEDS: 0.45% NACL 1,000 ML IV SCH (15:08)
[2016-08-16] MEDS: SOD FERRIC GLUC COMPLEX/SUC 125 MG in NS 100 ML IV SCH (15:12)
--- NOTE | 2016-08-16 16:00 | NUR ---
rounds anxiety med was given and requested and went to sleep.no sob noted. noted redness on the back and r arm and applied lotion.
--- NOTE | 2016-08-16 17:14 | NUR ---
PHYSICAL THERAPY CO-SIGN The Physical Therapy Progress Notes documented by Casualty Claims Supervisor have been reviewed. I CONCUR W/CUSTOMER SUPPORT COORDINATOR NOTE Reviewed/Co-Signed by: Elena Robertson PT Documentation Done by: KRISHNA LONG CUSTOMER SUPPORT COORDINATOR Addendum: 08/17/16 at 1519 by Elena Robertson PT Amended: Links added.
--- NOTE | 2016-08-16 18:18 | NUR ---
rounds daughter came and visited patient. requested for pain med and was given. turned repositioned for comfort. no sob noted.
--- NOTE | 2016-08-16 19:50 | NUR ---
OPENING NOTES PATIENT IS A/OX4. NO SIGNS DISTRESS. BREATHING IS NON LABORED. VITAL SIGNS ARE STABLE. VENT SETTINGS VERIFIED. PATIENT HAS NO COMPLAINTS OF PAIN AT THIS TIME. CALL LIGHT IS WITHIN REACH. BED ALARM IS ON. PATIENT INSTRUCTED TO CALL FOR ASSISTANCE. WILL CONTINUE TO MONITOR.
--- NOTE | 2016-08-16 20:05 | NUR ---
PATIENT REFUSED SCD PATIENT REFUSED SCD. PATIENT WAS EDUCATED ON THE IMPORTANCE OF SCD'S. PATIENT REFUSED.
--- NOTE | 2016-08-16 22:40 | NUR ---
ROUNDS PATIENT WAS GIVEN CRANBERRY JUICE. PATIENT TOLERATED IT WELL.
--- NOTE | 2016-08-16 23:00 | NUR ---
PATIENT REFUSED CHG BATH PATIENT REFUSED CHG BATH. PATIENT WAS INFORMED THAT BY HER BEING IN ISOLATION, A CHG IS IMPORTANT. PATIENT REFUSED. PATIENT WAS ASKED IF SHE WOULD BE WILLING TO HAVE THE CHG BATH IN THE MORNING AROUND 0500. PATIENT STATED " MAYBE".
[2016-08-17] VITALS (19 sets, daily range): BP systolic 121–147; BP diastolic 70–94; PULSE 51–82; RESP 18–28; TEMP 96.3–97.6; O2SAT 92–95
--- NOTE | 2016-08-17 00:50 | NUR ---
ROUNDS PATIENT IS IN BED RESTING AND WATCHING TV. NO SIGNS OF DISTRESS. BREATHING IS NON LABORED. CALL LIGHT IS WITHIN REACH. SAFETY MEASURES ARE IN PLACE. WILL CONTINUE TO MONITOR. PATIENT INSTRUCTED TO CALL FOR ASSISTANCE.
[2016-08-17] MEDS: IPRATROPIUM/ALBUTEROL SULFATE 3 ML AMPUL.NEB INH SCH ×4 (01:20→19:14)
--- NOTE | 2016-08-17 02:00 | NUR ---
PATIENT REFUSED TO BE REPOSITIONED. PATIENT WAS EDUCATED ON THE IMPORTANCE OF BEING TURNED. PATIENT STATED THAT HER "BUTT IS HURTING". I EXPLAINED TO THE PATIENT THAT BEING REPOSITIONED WOULD ELEVATE THE PAIN AND STAYING IN ONE POSITION TOO LONG CAUSING BED SORES. PATIENT REFUSED. Addendum: 08/17/16 at 0456 by Chloe Orozco RN Amended: Links added.
--- NOTE | 2016-08-17 02:41 | NUR ---
ROUNDS PATIENT IS IN BED SLEEPING. TV IS ON. NO SIGNS OF DISTRESS. BREATHING IS NON LABORED. CALL LIGHT IS WITHIN REACH. SAFETY MEASURES ARE IN PLACE. WILL CONTINUE TO MONITOR.
--- NOTE | 2016-08-17 03:20 | NUR ---
PATIENT IS ANXIOUS PATIENT WAS EMOTIONAL AND WROTE DOWN THAT SHE WAS SACRED AND DIDN'T WANT TO BE LEFT ALONE. PATIENT IS SCARED THAT THE VENT MACHINE WILL STOP WORKING AND SHE'LL . PATIENT WAS COMFORTED AND WAS EDUCATED ON THE ALARMS THAT THE VENT MACHINES ARE EQUIPPED WITH. PATIENT SEEMED TO BE RELIEVED. PATIENT ASK FOR HER DAUGHTER PIPE TO BE CALLED AND ASK HER TO COME TO THE HOSPITAL AND SIT WITH HER. INFORMED PATIENT THAT PIPE WILL BE CALLED. PATIENT STATED OK.
--- NOTE | 2016-08-17 04:45 | NUR ---
PATIENT REFUSED TO BE TURNED. PATIENT WAS EDUCATED ON THE IMPORTANCE OF BEING TURNED. PATIENT REFUSED. Addendum: 08/17/16 at 0516 by Chloe Orozco RN Amended: Links added.
[2016-08-17] MEDS: 0.45% NACL 1,000 ML IV SCH ×2 (06:08→21:26)
[2016-08-17] MEDS: SUCRALFATE 1 GM TABLET PO SCH ×2 (06:09→16:50)
--- NOTE | 2016-08-17 06:25 | NUR ---
PAIN PATIENT HAD COMPLAINTS OF PAIN. WILL GIVE PRN PAIN MEDICATION.
[2016-08-17] MEDS: MORPHINE 2 MG/ML INJ. SYRINGE IVP PRN ×4 (06:30→23:08)
--- NOTE | 2016-08-17 06:39 | NUR ---
RADIOLOGY AT BEDSIDE
--- NOTE | 2016-08-17 06:45 | NUR ---
CLOSING NOTE PATIENT IS IN BED WATCHING TV. NO SIGNS OF DISTRESS. BREATHING IS NON LABORED. CALL LIGHT IS WITHIN REACH. SAFETY MEASURES ARE IN PLACE. BRAGA CATHETER AND PICC LINE ARE PATENT AND SHOWS NO SIGNS OF COMPLICATIONS. WILL ENDORSE TO THE MORNING NURSE.
[2016-08-17 07:08] LABS: ANION GAP 2 (5-15); CALCIUM 9.3 mg/dL (8.4-11.0); CHLORIDE 102 mmol/L (98-107); CREATININE 1.81 mg/dL (0.55-1.30); GLUCOSE 118 mg/dL (70-99); POTASSIUM 4.2 mmol/L (3.5-5.1); SODIUM SERUM 137 mmol/L (136-145); UREA NITROGEN, BLOOD 23 mg/dL (8-21)
[2016-08-17 07:15] LABS: BASOPHILS % (AUTO) 0.6 % (0.0-2.0); EOSINOPHILS # (AUTO) 0.4 K/uL (0.0-0.4); EOSINOPHILS % (AUTO) 5.6 % (0.0-4.0); HEMATOCRIT 29.7 % (36-48); HEMOGLOBIN 9.2 g/dL (12.0-16.0); LYMPHOCYTES % (AUTO) 12.7 % (20.5-51.5); MEAN CORPUSCULAR HEMOGLOBIN 27 pg (27-31); MEAN CORPUSCULAR HGB CONC 31 % (32-36); MEAN CORPUSCULAR VOLUME 88 fL (79.0-98.0); MONOCYTES # (AUTO) 0.4 K/uL (0.0-1.0); MONOCYTES % (AUTO) 5.4 % (1.7-9.3); NEUTROPHILS # (AUTO) 6.2 K/uL (1.8-7.7); NEUTROPHILS % (AUTO) 75.7 % (40.0-70.0); PLATELET COUNT (AUTO) 275 K/uL (130-430); RED CELL DISTRIBUTION WIDTH 16.7 % (9.0-15.0)
--- NOTE | 2016-08-17 07:40 | NUR ---
CALLED PATIENT DAUGHTER PATIENT REQUESTED CALLED PATIENT DAUGHTER PIPE. NO ANSWER MESSAGE WAS LEFT.
--- NOTE | 2016-08-17 08:00 | NUR ---
NOTE PT SITTING UP IN BED BEING ASSISTED IN EATING HER BREAKFAST BY AUTO GLASS INSTALLER AT THIS TIME. TRACH INTACT AND PATENT. PT'S RIGHT PICC INTACT AND PATENT AT THIS TIME, INFUSING IVF'S. PT IS ON AIR MATTRESS. PT REFUSES SCD'S ON AT THIS TIME. CALL LIGHT WITHIN REACH.
[2016-08-17 08:05] LABS: BLOOD GAS BASE EXCESS 6.3 mmol/L (-3.0-3.0); BLOOD GAS PH 7.327 (7.350-7.450)
[2016-08-17 08:06] LABS: ABG TOTAL HEMOGLOBIN 10.8 G/dL (12.0-18.0); BLOOD GAS COHb% 0.8 % (0.5-1.5); BLOOD GAS HHB 7.8 % (0.0-6.0); BLOOD O2Hb% 90.9 % (94.0-97.0)
[2016-08-17] MEDS: ASPIRIN 81 MG TABLET(ECOTRIN) PO SCH (08:51)
[2016-08-17] MEDS: MULTIVITAMINS,THERAPEUTIC 5 ML UDC GT SCH ×2 (08:51→21:24)
[2016-08-17] MEDS: PANTOPRAZOLE SODIUM 40 MG/VIAL (PROTONIX) IVP SCH ×2 (08:51→21:24)
[2016-08-17] MEDS: ENOXAPARIN SODIUM 40 MG/0.4 ML SYRINGE SUBCUT SCH (08:51)
[2016-08-17] MEDS: ATORVASTATIN 20 MG TABLET PO SCH (08:51)
[2016-08-17] MEDS: FLUoxetine HCL 20 MG CAPSULE (PROzac) PO SCH (08:51)
[2016-08-17] MEDS: FLUCONAZOLE 100 MG TABLET (DIFLUCAN) PO SCH (08:52)
[2016-08-17] MEDS: FERROUS GLUCONATE 300 MG TABLET PO SCH ×3 (08:52→21:24)
[2016-08-17] MEDS: CARVEDILOL 3.125 MG TABLET (COREG) PO SCH ×2 (08:52→21:25)
[2016-08-17] MEDS: CYANOCOBALAMIN 1000 mCg TABLET PO SCH (08:52)
[2016-08-17] MEDS: CLOTRIMAZOLE 1% TOPICAL CREAM 15 GM TP SCH (08:54)
[2016-08-17] MEDS: MUPIROCIN 2% TOPICAL OINTMENT 22 GM TP SCH ×2 (08:54→21:26)
[2016-08-17] MEDS: ALPRAZolam 0.25 MG TABLET PO PRN ×2 (10:19→23:08)
--- NOTE | 2016-08-17 10:25 | NUR ---
DISCHARGE PLANNING DC planning order for [facility] evaluation. Called and notified Nahomy, Liaison who will re-evaluate patient. Will follow up.
--- NOTE | 2016-08-17 12:00 | NUR ---
NOTE PT CHECKED ON Q1' AND PRN FOR NEEDS AND CARE AT THIS TIME.PT GETS HER RESP TREATMENTS SCHEDULED AND PRN FOR NEED. PT RESTING IN BED AT THIS TIME. CALL LIGHT WITHIN REACH.
[2016-08-17] MEDS: SOD FERRIC GLUC COMPLEX/SUC 125 MG in NS 100 ML IV SCH (13:06)
--- NOTE | 2016-08-17 16:00 | NUR ---
NOTE PT'S DAUGHTER CALLED, STATED THAT SHE HAD TOLD HER MOTHER SHE WAS GOING TO BE OUT OF TOWN TILL MONDAY. PT'S DAUGHTER WILL COME IN TO SEE PT ON MONDAY. PT WAS NOTIFIED. PT IS EASILY FORGETFUL ALL SHIFT. PT RESTING AT THIS TIME. CALL LIGHT WITHIN REACH.
[2016-08-17] MEDS ORDERED: FUROSEMIDE 20 MG/2 ML VIAL IVP ONE (18:15)
--- NOTE | 2016-08-17 18:30 | NUR ---
NOTE PT RESTING IN BED. DR NIEVES CAME TO SEE PT. ASSESSMENT WAS COMPLETED AND ORDERS WRITTEN. PT CHECKED ON Q1' AND PRN FOR NEEDS AND CARE. TELE INTACT AND ATTACHED ALL SHIFT. TRACH INTACT AND OXYGENATING PT WELL AT THIS TIME. RIGHT PICC INFUSING IVF'S. COLOSTOMY BAG OVE FISTULA INTACT AND MINIMAL DRAINAGE AT THIS TIME. BRAGA CATHETER INTACT AND DRAINING WELL ALL SHIFT. NO SOB/RESP DISTRESS NOTED. PAIN TOLERABLE AT THIS TIME. CALL LIGHT WITHIN REACH.
--- NOTE | 2016-08-17 20:00 | NUR ---
Initial Notes Received patient resting in bed, awake, alert, oriented. Patient denies any acute distress or pain. Breathing even and unlabored on mechanical vent, settings SIMV 8, TV 500, FiO2 30%, PEEP 5. PICC line to right upper arm, patent/clean/dry, dressing clean/dry/intact. Ricardo draining yellow urine to gravity. Enterocutaneious fistula noted abdomen, collection bag noted. Contact precaution for MRSA nares. Patient repositioned for comfort. Educated patient on use of call light for assistance and fall precautions, patient verbalized understanding. Will continue to monitor for changes and safety.
--- NOTE | 2016-08-17 22:00 | NUR ---
Rounds Patient resting in bed, awake, denies any acute distress or pain at this time. Breathing even and unlabored on mechanical vent. IV patent/clean/dry. Ricardo draining to gravity. Patient repositioned for comfort, needs addressed. Call light in hand, will continue to monitor.
[2016-08-18] VITALS (19 sets, daily range): BP systolic 117–139; BP diastolic 57–71; PULSE 46–94; RESP 16–24; TEMP 96–98.7; O2SAT 91–94
--- NOTE | 2016-08-18 | NUR ---
Rounds and Hygiene Care Patient resting in bed, awake. Denies any acute distress. Breathing even and unlabored on mechanical vent. IV site patent/clean/dry. Ricardo draining to gravity. Bedbath and CHG bath given. Oral care provided. Patient repositioned for comfort. Call light in hand, fall precautions in place. Will continue to monitor.
--- NOTE | 2016-08-18 02:00 | NUR ---
Rounds Patient resting in bed with eyes closed. No acute distress noted. Breathing even and unlabored. IV site patent/clean/dry. Ricardo draining to gravity. Call light in hand, will continue to monitor.
[2016-08-18] MEDS: IPRATROPIUM/ALBUTEROL SULFATE 3 ML AMPUL.NEB INH SCH ×4 (02:10→20:26)
--- NOTE | 2016-08-18 04:00 | NUR ---
Rounds Patient resting in bed with eyes closed, easily aroused. Patient denies any acute distress or pain. Breathing even and unlabored. Oral care provided. Patient refusing to be repositioned at this time, educated patient on importance, patient continue to refuse. IV site patent/clean/dry. Ricardo draining to gravity. Call light in hand, fall precautions in place. Will continue to monitor for changes and safety.
[2016-08-18] MEDS: SUCRALFATE 1 GM TABLET PO SCH ×2 (05:55→15:57)
[2016-08-18] MEDS: MORPHINE 2 MG/ML INJ. SYRINGE IVP PRN ×3 (05:56→20:59)
--- NOTE | 2016-08-18 06:34 | NUR ---
Closing Notes Patient resting in bed, awake. Patient denies any acute distress or pain at this time. Breathing even and unlabored on mechanical vent. PICC line patent/clean/dry, no S/S infection/infiltration noted. Ricardo draining yellow urine to gravity. Enterocutaneous fistula drainage bag in place, minimal drainage noted. Patient repositioned for comfort. Needs addressed throughout shift. Call light in hand, fall precautions in place. Will continue to monitor for changes and safety, and endorse all patient care/needs to oncoming nurse.
[2016-08-18 07:37] LABS: ANION GAP 3 (5-15); CALCIUM 8.8 mg/dL (8.4-11.0); CHLORIDE 102 mmol/L (98-107); CREATININE 1.89 mg/dL (0.55-1.30); GLUCOSE 108 mg/dL (70-99); POTASSIUM 4.2 mmol/L (3.5-5.1); SODIUM SERUM 138 mmol/L (136-145); UREA NITROGEN, BLOOD 21 mg/dL (8-21)
--- NOTE | 2016-08-18 08:00 | NUR ---
NOTE PT SITTING UP IN BED BEING ASSISTED IN EATING HER BREAKFAST WITH MEDICAL SCRIBE. PT DENIES ANY SOB/RESP DISTRESS OR PAIN/DISCOMFORT AT THIS TIME. PT'S RIGHT PICC INTACT AND INFUSING IVF'S WELL AT THIS TIME. PT ON AN AIR MATTRESS AND REFUSES HER SCD'S AT THIS TIME. TRACH/VENTILATOR BEING CHARTED AND MANAGED BY RESP THERAPIST AT THIS TIME. NO NEEDS NOTED. CALL LIGHT WITHIN REACH.
[2016-08-18 08:15] LABS: BLOOD GAS PH 7.335 (7.350-7.450)
[2016-08-18 08:16] LABS: BLOOD GAS COHb% 1.1 % (0.5-1.5); BLOOD GAS HHB 10.4 % (0.0-6.0); BLOOD O2Hb% 88.1 % (94.0-97.0)
[2016-08-18] MEDS: FLUCONAZOLE 100 MG TABLET (DIFLUCAN) PO SCH (09:39)
[2016-08-18] MEDS: PANTOPRAZOLE SODIUM 40 MG/VIAL (PROTONIX) IVP SCH ×2 (09:39→20:58)
[2016-08-18] MEDS: ENOXAPARIN SODIUM 40 MG/0.4 ML SYRINGE SUBCUT SCH (09:39)
[2016-08-18] MEDS: ATORVASTATIN 20 MG TABLET PO SCH (09:39)
[2016-08-18] MEDS: FERROUS GLUCONATE 300 MG TABLET PO SCH ×3 (09:39→20:58)
[2016-08-18] MEDS: CYANOCOBALAMIN 1000 mCg TABLET PO SCH (09:39)
[2016-08-18] MEDS: CARVEDILOL 3.125 MG TABLET (COREG) PO SCH (09:41)
[2016-08-18] MEDS: FLUoxetine HCL 20 MG CAPSULE (PROzac) PO SCH (09:41)
[2016-08-18] MEDS: ASPIRIN 81 MG TABLET(ECOTRIN) PO SCH (09:41)
[2016-08-18] MEDS: CLOTRIMAZOLE 1% TOPICAL CREAM 15 GM TP SCH (09:43)
[2016-08-18] MEDS: MUPIROCIN 2% TOPICAL OINTMENT 22 GM TP SCH ×2 (09:43→20:57)
[2016-08-18] MEDS: MULTIVITAMINS,THERAPEUTIC 5 ML UDC GT SCH ×2 (10:00→20:57)
[2016-08-18] MEDS: ALPRAZolam 0.25 MG TABLET PO PRN (10:01)
--- NOTE | 2016-08-18 12:00 | NUR ---
NOTE PT RESTING IN BED. BRAGA CATHETER INTACT AND DRAINING WELL ALL SHIFT. TELE UNIT INTACT AND ATTACHED. PT RECEIVING HER BREATHING TREATMENTS SCHEDULED AND PRN AT THIS TIME. CALL LIGHT WITHIN REACH.
[2016-08-18] MEDS ORDERED: MAGNESIUM CITRATE 300 ML ORAL SOLUTION PO ONE (13:00)
[2016-08-18] MEDS ORDERED: MINERAL OIL 30 ML UDC PO ONE (13:00)
[2016-08-18] MEDS ORDERED: BISACODYL 5 MG TABLET.DR (DULCOLAX) PO ONE (13:00)
[2016-08-18] MEDS ORDERED: MINERAL OIL 133 ML ENEMA RC ONE (13:00)
[2016-08-18] MEDS: SOD FERRIC GLUC COMPLEX/SUC 125 MG in NS 100 ML IV SCH (13:12)
--- NOTE | 2016-08-18 15:00 | NUR ---
NOTE PT SEEN BY DR GERMAIN ON THE FLOOR AT THIS TIME. PT WAS GIVEN LAXATIVES AND ENEMA ORDERED AT THIS TIME. HYGIENE CARE PROVIDED BY RN AND REAL ESTATE OPERATIONS MANAGER AT THIS TIME WELL. PT TURNED AND REPOSITIONED IN BED. BRAGA CATHETER INTACT AND DRAINING WELL AT THIS TIME. IVF'S INFUSING THROUGH RIGHT PICC. NO NEEDS NOTED. CALL LIGHT WITHIN REACH.
--- NOTE | 2016-08-18 15:00 | NUR ---
PHYSICAL THERAPY CO-SIGN The Physical Therapy Progress Notes documented by Lead Material Handler have been reviewed. Reviewed/Co-Signed by: Joycelyn Barton, PT Documentation Done by: Meir Meyers PTA I concur with the documentation of this PROJECT ASST. Plan: continue PT as per plan of care. Addendum: 08/19/16 at 0854 by Joycelyn Barton PT Amended: Links added.
--- NOTE | 2016-08-18 15:18 | NUR ---
DISCHARGE PLANNING Spoke with [facility] patient accepted and currently pending bed assignment. Ordered Radiology CD. Placed transportation packet in nurses station. Called [facility] [phone] placed [facility] ([facility]) transport on will call. Pending bed assignment.
--- NOTE | 2016-08-18 15:38 | NUR ---
Nutrition F/U Admitting Diagnosis Acute respiratory failure Past Medical History COPD, chronic respiratory failure, HLD, DM, CHF per MD notes Pt also found w/ acute hypercapnic respiratory failure, enterocutaneous fistula, mild protein malnutrition, morbid obesity Pertinent Medications Lipitor, protonix IV, morphine, zofran, SSI, D50%-syringe, MVI, lovenox, coreg, vitamin B12, ferric sodium gluconate complex/NaCl, ferrous gluconate, NaCl IVF, diflucan Current Diet Order Pureed, standard carb-45 gm, nectar thick liquids (x3 days) Height (Feet) 5 feet Height (Inches) 5.00 inches Weight (Pounds) (modified) 306 pounds (admission) 07/30/16 bedscale: 317 lbs/144 kg (unsure of accuracy) 08/02/16 bedscale: 314 lb/143 kg 08/09/16 bedscale: 309 lb/141 kg 08/11/16 bedscale: 311 lb/141 kg 08/15/16 bedscale: 319 lb/145 kg 08/18/16 bedscale: 341 lb/155 kg Weight (Calculated Kilograms) 138.616685 kilograms Patient Weight 138.799 kg Body Mass Index 50.92 kg/m2 (obesity class III) [place]/Adjusted Body Weight IBW: 125 lb, 57 kg. 244% of IBW. Adj IBW (obesity): 244 lb, 111 kg Estimated Needs (modified) 3617-9259 kcal/day (11-14 kcal/kg CBW for vent support) Grams of Protein per Day 114-143 gm/day (2-2.5 gm/kg IBW for COPD and vent support) Fluid Intake Goal Per MD for Hx of CHF Pertinent Labs 08/18/16: BUN 21 WNL (improved), CRE 1.89 H, BG 108 H, POC BG 135 H 08/17/16: Hgb 9.2 L, Hct 29.7 L 07/28/16: Iron 23 L, TIBC 238 L, HgbA1c 7.4 H 07/27/16: Lactic acid 2.5 H Other Subjective Data Physical: Pt seen laying in bed at time of visit, + trach to vent. Pt seemed very confused. Pt was in distress, internet researcher called RN to help. Bedscale wt: 341 lb, unsure of accuracy. Abdominal distention noted. Per RN, abdomen was very firm. Non-pitting edema seen to bilateral hands and BLE. GI Integrity: Per EMR, abdomen is soft and non-distended with active bowel sounds. Pt unable to recall last BM. No rectal tube seen. Pt nodded when asked if constipated. PO Intakes: PO records average 27% x7 meals. Lunch tray seen at bedside about 10% eaten. Boost Glucose Control about 25% consumed. Pt has poor appetite. Integumentary: Randall score 14: rash to anterior chest, redness to coccyx, left proximal abdomen incision (fistula), and excoriation to perineal area. Plans/Procedures: LTAC eval. Pt is not yet meeting optimal nutritional needs. Recommend continuing to assist w/ meals as needed to encourage PO intake. Pt is not appropriate for nutrition education. Problem, Etiology, Signs/Symptoms Increased nutritional requirements related to acute state and vent support as evidenced by elevated WBC and lactic acid lab draws, and estimated nutritional requirements. *ongoing Expected Outcomes or Goals 1. Monitor tolerance to pureed diet with nectar thick liquids with goal of meeting at least 50% of estimated needs with acceptable tolerance 2. Labs trending within normal limits 3. Weight maintenance 4. Improved skin integrity 5. Improved GI function Dietitian Recommendations (modified) * Continue pureed diet, standard carb-45 gm with nectar thick liquids per MD Note: pureed diet comes standard with Boost Plus TID which provides 1080 kcal/day and 42 gm protein/day to aid in low PO intakes and weight maintenance * Monitor PO intakes at this time and encourage PO intakes; assist with feeding as needed. Follow Up High Risk: F/U in 2-3 days Addendum: 08/18/16 at [address] CORRECTIONS: Adj IBW (obesity): 170 lb, 77 kg LESLY reviewed/approved internet researcher's note. LESLY HERRING Addendum: 08/18/16 at [address] CORRECTIONS: Dietitian Recommendations (modified) * Continue pureed diet, CCHO low carb-45 gm with nectar thick liquids per MD Note: oral supplement Boost Glucose Control TID which provides 750 kcal/day and 42 gm protein/day to aid in low PO intakes and weight maintenance * Monitor PO intakes at this time and encourage PO intakes; assist with feeding as needed.
[2016-08-18] MEDS: 0.45% NACL 1,000 ML IV SCH ×2 (15:57→23:12)
[2016-08-18] MEDS ORDERED: LACTULOSE 20 GM/30 ML UDC PO ONE (16:00)
--- NOTE | 2016-08-18 18:20 | NUR ---
NOTE PT ASLEEP IN BED. NO SOB/RESP DISTRESS OR PAIN/DISCOMFORT NOTED AT THIS TIME. IVF'S INFUSING WELL THROUGH RIGHT PICC. NO NEEDS NOTED AT THIS TIME. PT WAS CHECKED ON Q1' AND PRN ALL SHIFT. TELE UNIT AND BRAGA CATHETER INTACT AT THIS TIME. CALL LIGHT WITHIN REACH.
--- NOTE | 2016-08-18 20:00 | NUR ---
INITIAL NOTES : PT AWAKE , ALERT AND ORIENTED , ABLE TO EXPRESS HER NEEDS BY WRITING OR ABLE TO TALK SOFTLY ; DENIED PAIN AT THIS TIME ; ON TRACH WITH VENT SETTING SIMV 8 , TOTAL 24 , TV-500, FIO2 -30% , PEEP 5 , , RESPIRATION EVEN AND NONLABORED ; NOT IN ANY ACTE DISTRESS; PICCLINE TO THE R UPPER ARM , CLEAN AND DRY NOTICED SMALL REDNESS NEAR TO THE SITE ; PICCLINE FLUSHED WELL , GOOD BLOOD RETURN NOTED ; IV FLUID INFUSING WELL ; TELE RUNNING AFIB ; NOTICED RASHES TO ROMMEL. ARMS AND LEGS ;BRAGA IS DRAINING YELLOW COLOR URINE TO GRAVIRY . R UPPER ABDOMEN NOTED WITH COLOSTOMY BAG ON THE FISTULA SITE .BED IN LOW AND LOCK POSITION ; CALL MARVIN IN REACH ; PT REFUSED TO TURN AND CHECK HER BACK AT THIS TIME ; WILL CONTINUE TO MONITOR.
[2016-08-18] MEDS: LACTULOSE 20 GM/30 ML UDC PO SCH (20:57)
--- NOTE | 2016-08-18 21:00 | NUR ---
MEDICATION: DUE MEDS GIVEN ; PILLS CRUSHED AND GIVEN WITH APPLE SAUCE , NO S/S OF ANY ASPIRATION NOTED ; PT C/O PAIN MEDICATED WITH MORPHINE ORDERED .
--- NOTE | 2016-08-18 21:05 | NUR ---
REID LENTZ GUTHRIE CALLED: DEPARTMENT EDITOR BRENNEN CALLED AND STATED THAT BED 312 -A IS AVAILABLE FOR THE PT , CM STATED TO TRANSFER THE PT TOMORROW AT ANY TIME SINCE ITS TOO LATE .INFORMED CM THAT WILL CALL DAUGHTER AND AMBULANCE FOR THE AVAILABILITY SINCE PT IS ON VENT AND WILL LET HER KNOW . CM GIVEN [facility] NO [phone].
--- NOTE | 2016-08-18 21:37 | NUR ---
AMBULANCE TAILINGS MAN SET UP FOR 10AM PT'S DAUGHTER DID NOT WANT PT TO BE TRANSFERRED TONIGHT SINCE IT IS TOO LATE . AMBULANCE SET UP FOR TOMORROW MORNING AT 10AM (TRACH/VENT PATIENT). VERIFIED WITH AMBULANCE THAT THEY WOULD HAVE STAFF TO TRANSFER PT ON TRACH/VENT. PUJA GARCIA, AND CHARGE NURSE AWARE. PT'S DAUGHTER AWARE AND WILL MEET THE PT AT [facility].
--- NOTE | 2016-08-18 22:30 | NUR ---
RN NOTES : PT IS SLEEPING ON AND OFF , NOT IN ANY ACUTE DISTRESS; WILL CONTINUE TO MONITOR.
[2016-08-19] VITALS (9 sets, daily range): BP systolic 138–159; BP diastolic 52–77; PULSE 48–87; RESP 16–20; TEMP 97.2–98.1; O2SAT 92–100
--- NOTE | 2016-08-19 00:05 | NUR ---
RN ROUNDS: PT IS RESTING WITH EYES CLOSED , NO S/S OF ANY DISTRESS NOTED ; RESPIRATION IS EVEN AND NONLABORED .WILL CONTINUE TO MONITOR PT.
[2016-08-19] MEDS: IPRATROPIUM/ALBUTEROL SULFATE 3 ML AMPUL.NEB INH SCH ×2 (01:18→07:12)
--- NOTE | 2016-08-19 02:30 | NUR ---
RN ROUNDS; PT IS AWAKE, PT CLEANED ANTERIOR AND PT REFUSED TO TURN AND CLEAN THE BACK ; GOWN CHANGED; Z GUARD APPLIED TO THE GROIN , AND ABD FOLD , INTER DRY APPLIED TO THE ABD FOLD AND UNDER THE BREAST ;EXPLAIN THE PT NEED TO TURN AND REPOSITION ; PT STARTED TO GETTING ANGRY .PT MADE COMFORTABLE .
--- NOTE | 2016-08-19 04:46 | NUR ---
RN NOTES: PT IS SLEEPING NOT IN ANY ACUTE DISTRESS; WILL CONTINUE TO MONITOR.
--- NOTE | 2016-08-19 05:50 | NUR ---
RN NOTES: PT IS COMFORTABLE; NOT IN ANY ACUTE DISTRESS; PT REFUSED TO TURN AND CHANGE HER LINEN ;
[2016-08-19] MEDS: SUCRALFATE 1 GM TABLET PO SCH (06:18)
[2016-08-19] MEDS: 0.45% NACL 1,000 ML IV SCH (06:21)
--- NOTE | 2016-08-19 07:30 | NUR ---
CLOSING NOTES: PT IS WET WITH URINE , NOTICED BRAGA IS DISCONTINUED FROM THE CONNECTING AREA ,WITH THE HELP OF 2 RNS PT JAMI AND LINEN CHANGED ; PT IS COMFORTABLE ; REPORT GIVEN TO RN AT BEDSIDE .
[2016-08-19 07:55] LABS: ALANINE AMINOTRANSFERASE 9 U/L (12-78); ALBUMIN 1.9 g/dL (3.4-4.8); ANION GAP 4 (5-15); ASPARTATE AMINOTRANSFERASE 11 U/L (10-37); CALCIUM 9.2 mg/dL (8.4-11.0); CHLORIDE 103 mmol/L (98-107); CHOLESTEROL 114 mg/dL (<200); CREATININE 1.75 mg/dL (0.55-1.30); GLUCOSE 113 mg/dL (70-99); HDL CHOLESTEROL 30 mg/dL (>55); LDL CHOLESTEROL 60 mg/dL (<100); POTASSIUM 3.9 mmol/L (3.5-5.1); SODIUM SERUM 140 mmol/L (136-145); TOTAL BILIRUBIN 0.2 mg/dL (0.0-1.0); TOTAL PROTEIN, SERUM 7.5 g/dL (6.4-8.3); TRIGLYCERIDES 148 mg/dL (30-150); UREA NITROGEN, BLOOD 20 mg/dL (8-21)
--- NOTE | 2016-08-19 08:15 | NUR ---
AM NOTE Received patient from field care advocate nurse, patient is resting in bed, alert and oriented x 3, patient is nonverbal but is able to nod head and write with pen on paper for communication, assessment done, patient is on ventilator tolerating well, Head of bed up 30 degrees, bed in lowest position, three side rails up, bed alarm on, fall, isolation, aspiration precautions in place.
[2016-08-19 08:30] LABS: BASOPHILS % (AUTO) 0.7 % (0.0-2.0); EOSINOPHILS # (AUTO) 0.3 K/uL (0.0-0.4); HEMATOCRIT 32.7 % (36-48); LYMPHOCYTES % (AUTO) 18.4 % (20.5-51.5); MEAN CORPUSCULAR HEMOGLOBIN 27 pg (27-31); MEAN CORPUSCULAR HGB CONC 31 % (32-36); MEAN CORPUSCULAR VOLUME 87 fL (79.0-98.0); MONOCYTES # (AUTO) 0.4 K/uL (0.0-1.0); MONOCYTES % (AUTO) 7.3 % (1.7-9.3); NEUTROPHILS % (AUTO) 68.6 % (40.0-70.0); PLATELET COUNT (AUTO) 261 K/uL (130-430); RED BLOOD CELL COUNT(AUTO) 3.74 MIL/uL (4.2-6.2); RED CELL DISTRIBUTION WIDTH 16.8 % (9.0-15.0); WHITE BLOOD COUNT (AUTO) 5.7 K/uL (4.8-10.8)
--- NOTE | 2016-08-19 08:35 | NUR ---
MEDICATION PASS Medication's given to patient, educated patient on potential side effects of medication, patient was able to nod head to verbalize understanding, bed in lowest position, bed alarm on, three side rails up,fall, isolation, aspiration precautions in place, will continue to monitor patient
[2016-08-19] MEDS: CYANOCOBALAMIN 1000 mCg TABLET PO SCH (08:46)
[2016-08-19] MEDS: LACTULOSE 20 GM/30 ML UDC PO SCH (08:46)
[2016-08-19] MEDS: ASPIRIN 81 MG TABLET(ECOTRIN) PO SCH (08:47)
[2016-08-19] MEDS: FLUoxetine HCL 20 MG CAPSULE (PROzac) PO SCH (08:47)
[2016-08-19] MEDS: PANTOPRAZOLE SODIUM 40 MG/VIAL (PROTONIX) IVP SCH (08:47)
[2016-08-19] MEDS: ATORVASTATIN 20 MG TABLET PO SCH (08:47)
[2016-08-19] MEDS: FERROUS GLUCONATE 300 MG TABLET PO SCH (08:47)
[2016-08-19] MEDS: MUPIROCIN 2% TOPICAL OINTMENT 22 GM TP SCH (08:49)
[2016-08-19] MEDS: ENOXAPARIN SODIUM 40 MG/0.4 ML SYRINGE SUBCUT SCH (08:49)
[2016-08-19] MEDS: CLOTRIMAZOLE 1% TOPICAL CREAM 15 GM TP SCH (09:00)
[2016-08-19] MEDS: MULTIVITAMINS,THERAPEUTIC 5 ML UDC GT SCH (09:00)
--- NOTE | 2016-08-19 09:00 | NUR ---
Wound Care Note Patient was awake, alert, oriented, and patient is on EDUARDA mattress with low air-loss therapy. On ETT to Ventilator. Patient is unable to turn independently. Skin is fair, rashes on all extremities, buttocks has nonblanching redness, ; Abdominal folds have redness from moisture. Will continue to reposition patient side to side only every 2 hours with pillow support and off-loading pressure areas with pillows for pressure re-distribution. Elevate, off-load and floating bilateral heels with pillows, applied moisture barrier cream on buttocks and other moisture susceptible areas, will monitor skin integrity
[2016-08-19] MEDS: IPRATROPIUM/ALBUTEROL SULFATE 3 ML AMPUL.NEB INH PRN (09:36)
--- NOTE | 2016-08-19 10:41 | NUR ---
DISCHARGE PLANNING Spoke with Nahomy who stated patient assigned to room 312A at [facility]. 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 Confirmed with Construction Flagger Vanessa who stated ambulance scheduled to return with bariatric transport before 11:30am.
--- NOTE | 2016-08-19 10:50 | NUR ---
PT TRANSFERRED Report given to Antelmo LUO at [facility]. Transfer packet with Transfer Orders and Medication Reconciliation form given to EMT with report. Exitcare provided. [facility] ID band removed, replaced with ID band with pt's name and . PICC Line intact. All belongings sent with patient. Patient left floor via gurney escorted by EMT in no distress.
--- NOTE | 2016-08-19 12:20 | NUR ---
PHYSICAL THERAPY CO-SIGN The Physical Therapy Progress Notes documented by Computerized Mill Recorder have been reviewed. Reviewed/Co-Signed by: Joycelyn Barton, PT Documentation Done by: Meir Meyers, COMMUNITY HEALTH WORKER I concur with the documentation of this COMMUNITY HEALTH WORKER. Patient is discharged to [facility] and may benefit from more PT services. Addendum: 08/19/16 at 1338 by Joycelyn Barton PT Amended: Links added.
== END 2016-08-19 11:15 | DRG 4 ==
LOC: SED 12:41 → SIC 15:02 → SMU 08-12 18:00 → STU 08-12 18:33
PROVIDERS: ADMIT Internal Medicine; ATTEND Internal Medicine
PROC: 02HV33Z Insertion of Infusion Device into Superior Vena Cava, Percutaneous Approach (ICD-10-PCS; 2016-07-28)
PROC: B548ZZA Ultrasonography of Superior Vena Cava, Guidance (ICD-10-PCS; 2016-07-28)
PROC: 30233N1 Transfusion of Nonautologous Red Blood Cells into Peripheral Vein, Percutaneous Approach (ICD-10-PCS; 2016-07-28)
PROC: 5A1955Z Respiratory Ventilation, Greater than 96 Consecutive Hours (ICD-10-PCS; principal; 2016-08-09)
PROC: 0B110F4 Bypass Trachea to Cutaneous with Tracheostomy Device, Open Approach (ICD-10-PCS; 2016-08-09)
DX: J96.22 Acute and chronic respiratory failure with hypercapnia (principal); J18.9 Pneumonia, unspecified organism; E43 Unspecified severe protein-calorie malnutrition; L03.115 Cellulitis of right lower limb; L03.116 Cellulitis of left lower limb; L03.311 Cellulitis of abdominal wall; K63.2 Fistula of intestine; J44.1 Chronic obstructive pulmonary disease with (acute) exacerbation; J44.0 Chronic obstructive pulmonary disease with (acute) lower respiratory infection; E87.2 Acidosis; E44.1 Mild protein-calorie malnutrition; Z68.43 Body mass index [BMI] 50.0-59.9, adult; I50.30 Unspecified diastolic (congestive) heart failure; J45.901 Unspecified asthma with (acute) exacerbation; N17.9 Acute kidney failure, unspecified; I27.81 Cor pulmonale (chronic); E78.5 Hyperlipidemia, unspecified; E66.01 Morbid (severe) obesity due to excess calories; D64.9 Anemia, unspecified; E11.65 Type 2 diabetes mellitus with hyperglycemia; I11.0 Hypertensive heart disease with heart failure; G47.33 Obstructive sleep apnea (adult) (pediatric); E11.9 Type 2 diabetes mellitus without complications; G89.4 Chronic pain syndrome; K80.20 Calculus of gallbladder without cholecystitis without obstruction; Z93.1 Gastrostomy status; Z90.710 Acquired absence of both cervix and uterus; Z79.899 Other long term (current) drug therapy; Z22.322 Carrier or suspected carrier of Methicillin resistant Staphylococcus aureus
CPT/HCPCS: 36415; 36600; 71010; 80048; 80053; 80061; 80202-TC; 82140-TC; 82272; 82607; 82746; 82803-TC; 82962; 83036; 83540-TC; 83550-TC; 83605; 83735-TC; 83880; 84100-TC; 84484; 85007; 85025; 85027; 85044-TC; 85610-TC; 85730-TC; 86886; 86900; 86901; 86920; 87040-TC; 87045-TC; 87046; 87070-TC; 87081; 87205-TC; 87230-TC; 89055; 92610-GN; 93005; 93306; 94002; 94003; 94640; 94760; 97110-GP; 97530-GP; 99291; C1751; C9113; J0330; J0456; J0696; J0885; J1120; J1650; J1815; J1940; J2060; J2270; J2405; J2543; J2704; J2916; J3370; J3420; J3490; J7030; J7040; J7050; J7060; J7120; P9021